=== PATIENT | female | born 1955 | race Caucasian/White ===

== ENCOUNTER 2016-12-03 07:57 | Outpatient (CLI) | payer MEDICARE ==
[~2016-12-03] VITALS: Ht 162.6 cm; Wt 64.5 kg
--- NOTE | ~2016-12-03 | OP ---
PATIENT NAME: BRITNEY MCNEAL MEDICAL RECORD: [id number] :51 LOCATION:D.CAT ADMISSION DATE: SURGEON: BILLY BENAVIDES MD DATE OF OPERATION: PROCEDURES: 1. Left heart catheterization. 2. Selective coronary angiography. 3. Left ventriculogram. INDICATION: Chest pain compatible with angina. PROCEDURE IN DETAIL: After informed consent was obtained and after a detailed explanation of risks, benefits as well as alternative therapies, the patient elected to proceed with angiogram and heart catheterization. The right femoral area was prepped and draped in normal sterile fashion. The right femoral artery was cannulated via modified Seldinger technique with the placement of 5-Guinean sheath. All catheters exchanged through this sheath. FINDINGS: Left ventriculogram was performed in the standard 30-degree KENNEY view reveals good cardiac wall motion throughout all segments. Overall ejection fraction estimated at 60%. SELECTIVE CORONARY ANGIOGRAPHY: Left main, left anterior descending, left circumflex, and right coronary artery are all smooth-walled vessels with no angiographic evidence of coronary artery disease. OVERALL IMPRESSION: 1. No angiographic evidence of coronary artery disease. 2. Normal left heart pressures, normal left ventricular systolic function. Chest pain is noncardiac in etiology. No further cardiac workup needs to be ascertained. TRANSINT:[id number] Voice Confirmation ID: [id number] DOCUMENT ID: [id number] BILLY BENAVIDES MD CC: [id number] DICTATION DATE: 12/03/16 105 CHEMICAL MACHINE TENDER: 12/03/16 1058 DEP CLI 12/03/16 [facility] [address] [place] [address]
--- NOTE | ~2016-12-03 | HP ---
PATIENT: BRITNEY RUTLEDGE MEDICAL RECORD: [id number] ACCOUNT: [id number] LOCATION:MELIDA : 51 ADMISSION DATE: 12/03/16 HISTORY AND PHYSICAL EXAMINATION DIAGNOSES: 1. Angina. 2. Abnormal nuclear stress test. HISTORY OF PRESENT ILLNESS: Mrs. Rutledge presents with anginal symptomatology in an escalating fashion, nuclear stress test with significant perfusion defects in multivessel territory, now brought for cardiac catheterization. PHYSICAL EXAMINATION: GENERAL APPEARANCE: Well-nourished, well-developed, appears stated age. Level of distress, comfortable. PSYCHIATRIC: Mental status, alert, normal affect. Orientation, oriented to time, place and person. EYES: Lids and conjunctiva, noninjected. No discharge, no pallor. ENT: Lips, teeth, gums, normal dentition. Oropharynx, no cyanosis, no pallor. NECK: Carotid arteries, bilateral normal upstroke, no bruits, no thrills. JUGULAR VEINS: No jugular venous pressure or distention. CERVICAL LYMPH NODES: Nontender, nonenlarged. THYROID: Not enlarged. Nontender. No nodules. LUNGS: Respiratory effort, unlabored. CHEST: Normal curvature. No thoracic deformity. No chest wall tenderness. Percussion, resonant. Auscultation, clear. No wheezes, no rales, no rhonchi. CARDIOVASCULAR: Precordial exam, nondisplaced. No heaves or pericardial thrills. Rate and rhythm, regular. Heart sounds, normal S1, normal S2. No S3, no gallop, no rub. Systolic murmur, not heard. Diastolic murmur, not heard. EXTREMITIES: No cyanosis, no edema. Peripheral pulses, full and equal in all extremities, except as noted. No bruits appreciated. ABDOMEN: Soft, nondistended. Normal aorta. No bruit. Nontender. No masses. Liver, nontender, no hepatomegaly. Spleen, nontender, no splenomegaly. MUSCULOSKELETAL: No joint tenderness. No joint swelling. No erythema. NEUROLOGICAL: Normal gait, normal strength, normal tone. SKIN: Warm and dry. REVIEW OF SYSTEMS: The patient reports easy bruising but reports no swollen glands. The patient reports no fever, no night sweats, no significant weight gain, no significant weight loss. No significant exercise tolerance. The patient reports no dry eyes, no irritation, no vision change. Patient reports no difficulty hearing and no ear pain. Patient reports no frequent nose bleeds or nose and sinus problems. Patient reports on arm pain on exertion. No shortness of breath while lying down. No history of heart murmur. Patient reports no cough, no wheezing or coughing up blood. Patient reports no abdominal pain, no vomiting. Normal appetite. No diarrhea and not vomiting blood. No nausea and no constipation. Patient reports no incontinence. No difficulty urinating. No hematuria. No increased frequency. Patient reports no muscle aches. No weakness, no arthralgias, no back pain. No swelling of the extremities. Patient reports no abnormal mole, no jaundice, no rashes. Reports no loss of consciousness. No weakness and no numbness. No seizures, dizziness, or headaches. The patient reports no depression, no sleep disturbance, feeling safe in a relationship and no alcohol abuse. Patient reports on fatigue. Reports no runny nose or sinus pressure. No itching, no hives, and no frequent HISTORY AND PHYSICAL [id number] ELIZABET,BRITNEY HOLLIS sneezing. OVERALL IMPRESSION: Escalating chest pain with markedly abnormal nuclear stress test. She has high likelihood of recurrent hemodynamically significant coronary artery disease. We will proceed with coronary angiography. Further care depends upon findings of the angiography. TRANSINT:[id number] Voice Confirmation ID: [id number] DOCUMENT ID: [id number] BILLY BENAVIDES MD CC: [id number] DICTATION DATE: 12/03/16851 CLIENT RELATIONSHIP MANAGER: 12/03/16 09 REG [facility] [address] [place] [address]
--- NOTE | ~2016-12-03 | HEMODYNAMI ---
PATIENT:BRITNEY MCNEAL MEDICAL RECORD: [id number] : 51 LOCATION:DMATEUS ADMISSION DATE: 12/03/16 Generatedon:12/03/201610:54 Patient name: BRITNEY MCNEAL Patient #: [id number] SSN: : 1955 Date of study: 12/03/2016 Page: Of Hemodynamic Procedure Report Patient Data Patient Demographics Procedure consent was obtained First Name: BRITNEY Gender: Female Last Name: ELIZABET : 1955 [facility] Initial: TELMA Age: 61 year(s) Patient #: [id number] Race: Unknown Additional ID: [id number] Contact details Address: [place] [address] State: [place] City: [place] Zip code: [address] Past Medical History Allergies Allergen Reaction Date Comments Reported Other allergy 12/03/2016 Codeine, Penicillins Admission Admission Data Admission Date: 12/03/2016 Admission Time: 7:57 Admit Source: Other Lab Results Lab Result Date: 12/03/2016 Lab Result Time: 9:10 Biochemistry Name Units Result Min Max BUN mg/dl 29 --(----)-* 7 18 Creatinine mg/dl 0.9 --(-*--)-- 0.6 1.3 CBC Name Units Result Min Max Hematocrit % 33.8 *-(----)-- 42 54 Hemoglobin g/dl 10.7 *-(----)-- 13.5 17.5 Procedure Procedure Types Cath Procedure Diagnostic Procedure LHC LHC w/Coronaries Miscellaneous Procedures Moderate Sedation up to 15 minutes Procedure Description Procedure Date Procedure Date: 12/03/2016 Procedure Start Time: 10:41 Procedure End Time: 10:50 Procedure Staff Name Function Timi Ortiz MD Performing Physician Jose Cifuentes RT Scrub Marycarmen Yoon RN Nurse Mohan Hicks RT Monitor Procedure Data Cath Procedure Fluoroscopy Diagnostic fluoroscopy Total fluoroscopy Time: 0.9 time: 0.9 min min Diagnostic fluoroscopy Total fluoroscopy dose: dose: 107.42 mGy 107.42 mGy Contrast Material Contrast Material Type Amount (ml) Isovue 300 55 Entry Location Entry Primary Successful Side Size Upsize Upsize Entry Closure Succes sful Closure Location (Fr) 1 (Fr) 2 (Fr) Remarks Device Remarks Femoral Right 5 Fr Exoseal artery Estimated blood loss: 5 ml Diagnostic catheters Device Type Used For End Catheter Placement Cordis 5Fr Pigtail Procedure Catheter (MP) Cordis 5Fr JL 4.0 Procedure Catheter (MP) Cordis 5Fr 3DRC Catheter Procedure (MP) Procedure Complications No complications Procedure Medications Medication Administration Route Dosage 0.9% NaCl I.V. 100 ml/hr Lidocaine 2% added to field 20 Heparin Flush Bag added to field 2 bags (1000units/500ml NS) Oxygen NC 3 l/min Versed I.V. 0.5 mg Fentanyl I.V. 25 mcg Versed I.V. 0.5 mg Fentanyl I.V. 25 mcg Hemodynamics Rest HGB: 10.7 (g/dl) Heart Rate: 56 (bpm) Snapshots Pre Cath Intra NCS Post Cath Vital Signs Time Heart Resp SPO2 NIBP (mmHg) Rhythm Pain Sedation Rate (ipm) (%) Status Level (bpm) 10:16:42 54 15 100 145/85(122) NSR 0 (11) 10(A) , No pain 10:20:56 55 15 100 143/77(106) NSR 0 (11) 10(A) , No pain 10:26:22 55 17 100 139/78(117) NSR 0 (11) 10(A) , No pain 10:30:36 55 16 100 121/72(86) NSR 0 (11) 10(A) , No pain 10:34:52 56 15 100 122/66(81) NSR 0 (11) 10(A) , No pain 10:39:08 58 16 100 107/62(76) NSR 0 (11) 9(A) , No pain 10:43:18 56 15 100 102/66(78) NSR 0 (11) 9(A) , No pain 10:47:28 60 18 100 103/59(79) NSR 0 (11) 9(A) , No pain 10:52:02 66 17 99 105/66(93) NSR 0 (11) 10(A) , No pain Medications Time Medication Route Dose Verified Delivered Reason Notes Effe ctiveness by by 10:15:43 0.9% NaCl I.V. 100 Marycarmen Marycarmen used for ml/hr Car Car e business manager RN 10:15:51 Lidocaine 2% added 20ml Marycarmen Marycarmen used for to vial Car Car procedure field RN RN 10:16:00 Heparin Flush added 2 Marycarmen Marycarmen used for Bag to bags Car Car procedure (1000units/500ml field RN RN NS) 10:16:09 Oxygen NC 3 Marycarmen Marycarmen used for l/min Car Car e business manager RN 10:38:03 Versed I.V. 0.5 Marycarmen Marycarmen for mg Car Car sedation RN RN 10:38:12 Fentanyl I.V. 25 Marycarmen Marycarmen for mcg Car Car sedation RN RN 10:42:01 Fentanyl I.V. 25 Marycarmen Marycarmen for mcg Car Car sedation RN RN 10:42:45 Versed I.V. 0.5 Marycarmen Marycarmen for mg Car Car sedation RN kettle chipper Log Time Note 10:00:43 Jose Cifuentes RT(R) (CV) sent for patient. Start room use. 10:05:08 Informed consent obtained and on chart 10:05:18 Admit Source: Other 10:05:41 Diagnostic Cath status Elective 10:05:49 Time tracking: Regular hours 10:05:52 Plan of Care:Hemodynamics will remain stable., Cardiac rhythm will remain stable., Comfort level will be maintained., Respiratory function will remain adequate., Patient/ family verbilizes understanding of procedure., Procedure tolerated without complication., Recovers from procedure without complications.. 10:06:00 Patient received from Pre/Post Procedure Room to CCL 3 Alert and oriented. Tansferred to table in Supine position. 10:06:01 Warm blankets applied, and talha hugger turned on for patient comfort. 10:06:01 Correct patient and procedure confirmed by team. 10:06:02 ECG and BP/O2 sat monitors applied to patient. 10:06:19 H&P Date Dictated: 12/03/2016 New H&P dictated by physician.. 10:06:20 Pre-procedure instructions explained to patient. 10:06:20 Pre-op teaching completed and patient verbalized understanding. 10:06:21 Family in patients room. 10:06:22 Patient NPO since Midnight. 10:06:43 Patient allergic to Other allergyCodeine, Penicillins 10:06:45 Is the patient allergic to Iodine/contrast media? No. 10:06:49 Previous problem with sedation/anesthesia? No ? 10:06:51 Snore? Yes 10:06:54 Sleep apnea? No 10:06:55 Deviated septum? No 10:06:56 Opens mouth fully? Yes 10:06:57 Sticks out tongue? Yes 10:07:06 Airway obstruction? No ? 10:07:07 Patient diabetic? No. 10:07:10 Dentures? Yes in tight 10:07:49 Is patient on blood thinner?No 10:14:55 Vital chart was started 10:15:43 0.9% NaCl 100 ml/hr I.V. was administered by Marycarmen Yoon RN; used for procedure; 10:15:51 Lidocaine 2% 20ml vial added to field was administered by Marycarmen Yoon RN; used for procedure; 10:16:00 Heparin Flush Bag (1000units/500ml NS) 2 bags added to field was administered by Marycarmen Yoon RN; used for procedure; 10:16:09 Oxygen 3 l/min NC was administered by Marycarmen Yoon RN; used for procedure; 10:24:15 Pre procedure: right dorsailis pedis pulse Doppler 10:24:17 Patient pain scale 0/10 ?. 10:24:22 IV patent on arrival in right antecubital with 0.9% NaCl at [facility]. 10::46 Lab Result : Creatinine 0.9 mg/dl 10::46 Lab Result : BUN 29 mg/dl 10::46 Lab Result : Hemoglobin 10.7 g/dl 10::46 Lab Result : Hematocrit 33.8 % 10::48 Lab results completed and on chart. 10::54 Baseline sample Acquired. 10::58 Rhythm: sinus rhythm 10::59 Full Disclosure recording started 10:27:09 Right groin area was prepped with chlora-prep and draped in sterile fashion 10:27:10 Alarms reviewed by RElle NElle 10:27:10 Sharps counted by scrub and verified by R.N. 10:27:13 Use device set Femoral Dx 10:27:14 Tegaderm 4 x 4 opened to sterile field. 10:27:14 Acist Manifold opened to sterile field. 10:27:15 Acist Hand Control opened to sterile field. 10:27:16 Acist Syringe opened to sterile field. 10:27:16 Bag Decanter opened to sterile field. 10:27:17 Medline Cath Pack opened to sterile field. 10:27:17 Terumo 5Fr Mendota Sheath opened to sterile field. 10:27:17 St Jair 260cm J .035 wire opened to sterile field. 10:27:18 Diagnostic Infinity 5Fr Multipack catheter opened to sterile field. 10:31:26 Zero performed for pressure channel P1 10:37:35 Cook 18G 7cm Percutaneous Entry needle opened to sterile field. 10:37:40 Physician arrived 10:37:40 --------ALL STOP TIME OUT------ 10:37:40 Final Timeout: patient, procedure, and site verified with staff and physician. All members of the team are in agreement. 10:37:42 Right groin site verified by team. 10:37:45 Physical assessment completed. ASA score P 2 - A patient with mild systemic disease as per Timi Ortiz MD. 10:37:49 Sedation plan: IV Moderate Sedation Versed, Fentanyl 10:38:03 Versed 0.5 mg I.V. was administered by Marycarmen Yoon RN; for sedation; 10:38:12 Fentanyl 25 mcg I.V. was administered by Marycarmen Yoon RN; for sedation; 10:41:16 Procedure started. 10:41:18 Local anesthetic to right femoral artery with Lidocaine 2% by Timi Ortiz MD.INITIAL ACCESS ONLY 10:42:01 Fentanyl 25 mcg I.V. was administered by Marycarmen Yoon RN; for sedation; 10:42:02 A 5 Fr sheath was inserted into the Right Femoral artery 10:42:32 A Cordis 5Fr Pigtail Catheter (MP) was advanced over the wire and used for Procedure. 10:42:37 LV gram done using KENNEY 10:42:45 Versed 0.5 mg I.V. was administered by Marycarmen Yoon RN; for sedation; 10:42:47 Injector settings: Ml/sec: 10, Volume: 20, 10:43:19 EF : 60 % 10:43:23 Catheter exchanged over wire. 10:43:28 A Cordis 5Fr JL 4.0 Catheter (MP) was advanced over the wire and used for Procedure. 10:43:46 LCA angiography performed. 10:44:41 Catheter exchanged over wire. 10:44:45 A Cordis 5Fr 3DRC Catheter (MP) was advanced over the wire and used for Procedure. 10:45:21 RCA angiography performed. 10:45:44 Catheter removed. 10:45:49 Cordis 5Fr Exoseal opened to sterile field. 10:45:58 Sheath removed intact; hemostasis achieved with Exoseal to the Right Femoral artery. 10:46:00 Procedure ended.(Physican Out) 10:46:24 Fluoroscopy time 00.90 minutes. 10:46:34 Fluoroscopy dose: 107.42 mGy 10:46:34 Flurop Dose total: 107.42 10:46:39 Contrast amount:Isovue 300 55ml. 10:46:41 Sharps counted by scrub and verified by R.N. 10:49:30 Insertion/operative site no bleeding no hematoma. 10:49:33 Post-op/insertion site Right Femoral artery dressed using a 4 x 4 and Tegaderm. 10:49:36 Post right femoral artery:stable, soft, clean and dry 10:49:38 Post Procedure Pulses reassessed and unchanged 10:49:40 Post-procedure physical assessment completed. ASA score P 2 - A patient with mild systemic disease as per Timi Ortiz MD. 10:49:42 Post procedure rhythm: unchanged. 10:49:44 Estimated blood loss: 5 ml 10:49:45 Post procedure instruction explained to patient.Patient verbalizes understanding. 10:49:46 Patient needs reinforcement of post procedure teaching. 10:49:56 Procedure type changed to Cath procedure, Diagnostic procedure, LHC, LHC w/Coronaries, Miscellaneous Procedures, Moderate Sedation up to 15 minutes 10:50:10 Procedure and supply charges have been captured, reviewed, submitted and are correct. 10:50:13 Procedure Complication : No complications 10:50:15 Vital chart was stopped 10:50:15 See physician's report for complete and final results. 10:50:17 Report given to Pre/Post Procedure Room. 10:50:19 Patient transfered to Pre/Post Procedure Room with Stretcher. 10:50:20 Procedure ended. 10:50:20 Full Disclosure recording stopped 10:50:24 End room use (Document Last) Device Usage Item Name Manufacture Quantity Catalog Hospital Part Current Minimal Lot# / Number Charge Number Stock Stock Serial# Code Tegaderm 4 x 3M 1 [id number] [id number] 488237 5 4 Acist Acist 1 48759 124736 448287 560051 5 Manifold Medical Systems Inc Acist Hand Acist 1 49246 274538 036903 802180 5 Control Medical Systems Inc Acist Acist 1 91579 990620 796022 669106 20 Syringe Medical Systems Inc Bag Decanter Microtek 1 2002S 629683 74940 925170 5 Medical Inc. Medline Cath Cardinal 1 [id number] 875686 26457 638484 5 Pack Health Terumo 5Fr Terumo 1 [id number] 771191 392375 642078 [address] St Jair 1 [id number] 908584 706771 628639 30 260cm J .035 wire Diagnostic Cardinal 1 [id number] 208450 24002 682592 30 Infinity 5Fr Health Multipack catheter Cook 18G 7cm Cook Medical 1 [id number] 254788 49434 083978 5 Percutaneous Entry needle Cordis 5Fr Cardinal 1 [id number] 5 Pigtail Health Catheter (MP) Cordis 5Fr Cardinal 1 068406 5 JL 4.0 Health Catheter (MP) Cordis 5Fr Cardinal 1 130911 5 3DRC Health Catheter (MP) Cordis 5Fr Cardinal 1 EX500 882379 239340 349475 10 ParentPlus Signature Audit [place] Stage Time Signature Unsigned Intra-Procedure 12/03/2016 Mohan Hicks 10:54:24 AM RT(R) Signatures Monitor : Mohan Hicks RT Signature : Date : Time : [facility] [address] [place] [address]
[~2016-12-03 07:57] MED LIST: AMBIEN10 MG PO; ASPIRIN325 MG PO; BAYER CHEWABLE81 MG PO; CARAFATE1 G PO; CENTRUM SILVER1 TA2 PO; DEPAKOTE500 MG PO; EVISTA60 MG PO; FERRETTS I40 MG/15 M IV; FERREX 150 FO1 UDCAP PO; HEMOCYTE PLUS1 CAP PO; K-DUR20 MEQ PO; KEPPRA XR750 MG PO; KEPPRA500 MG PO; KLONOPIN1 MG PO; LASIX20 MG PO; LEVAQUIN500 MG PO; LISINOPRIL5 MG PO; MOBIC7.5 MG PO; MOTRIN800 MG PO; POLY IRON PN TA1 TAB PO; POTASSIUM99 M1; PRILOSEC20 MG PO; REQUIP XL2 MG PO; TEGRETOL 200 M200 MG PO; TOPAMAX100 MG PO; TOPROL XL25 MG PO; VITAMIN B-1000 MCG/M IM; VITAMIN B-121000 MC3; ZANAFLEX2 MG PO; ZANAFLEX4 MG PO; ZANTAC300 MG PO; ZOLOFT100 MG PO
[2016-12-03] MEDS ORDERED: GABAPENTIN100 MG PO (08:21)
[2016-12-03] MEDS ORDERED: BUTALBITAL-ASP-1 CAP PO (08:22)
[2016-12-03] MEDS ORDERED: ROPINIROLE HCL2 MG PO (08:22)
[2016-12-03] MEDS ORDERED: LIPITOR40 MG PO (08:22)
[2016-12-03] MEDS ORDERED: METOLAZONE2.5 MG PO (08:22)
[2016-12-03] MEDS ORDERED: ZESTRIL40 MG PO ×2 (08:23→09:03)
[2016-12-03 08:52] VITALS: BP 115/68; Ht 162.6 cm; Wt 64.5 kg
[2016-12-03] MEDS ORDERED: TOPAMAX200 MG PO (09:03)
[2016-12-03] MEDS ORDERED: MOBIC7.5 MG PO (09:04)
[2016-12-03] MEDS ORDERED: PRILOSEC10 M1 PO (09:04)
[2016-12-03 09:24] LABS: BASOPHILS 0.4 % (0-2); EOSINOPHILS 1.6 % (0-7); HEMATOCRIT 33.8 % (36.0-48.0); HEMOGLOBIN 10.7 g/dL (12-16); LYMPHOCYTES 31.2 % (15-50); MCH 31.8 pg (26.0-34.0); MCHC 31.7 g/dL (31.0-37.0); MCV 100.3 fL (80.0-100.0); MEAN PLATELET VOLUME 10.1 fL (7.4-10.4); MONOCYTES 10.5 % (2-11); NEUTROPHILS 56.3 % (40-80); PLATELET COUNT 112 10x3/uL (130-400); RBC 3.37 10x6/uL (4.00-5.40); RDW 14.8 % (11.5-14.5); WBC 2.5 10x3/uL (4.8-10.8)
[2016-12-03 09:44] LABS: ANION GAP 13.9 mmol/L (8-16); CALCIUM 8.3 mg/dL (8.5-10.1); CARBON DIOXIDE 22.9 mmol/L (21.0-32.0); CREATININE - SERUM 0.9 mg/dL (0.6-1.3); POTASSIUM - SERUM 4.8 mmol/L (3.5-5.1)
--- NOTE | 2016-12-03 13:09 | NUR ---
1250 IV D/C'D WITH CATH INTACT. RECHECKED B/P AFTER AROUSING PATIENT. UP TO WHEELCHAIR TO BATHROOM TO VOID. BACK TO BEDSIDE TO DRESS WITH ASSIST FROM FAMILY.
== END 2016-12-03 13:42 | disposition home or self-care (01) ==
LOC: D.CATH 07:57
PROVIDERS: Internal Medicine Interventional Cardiology
DX: I20.9 Angina pectoris, unspecified (principal); R94.30 Abnormal result of cardiovascular function study, unspecified; R06.02 Shortness of breath; I07.1 Rheumatic tricuspid insufficiency; I10 Essential (primary) hypertension; I34.0 Nonrheumatic mitral (valve) insufficiency; R60.9 Edema, unspecified; Z01.812 Encounter for preprocedural laboratory examination

== ENCOUNTER 2017-01-05 16:46 | Inpatient (IN) | payer MEDICARE ==
[~2017-01-05 16:46] MED LIST changes: +BUTALBITAL-ASP-1 CAP PO; +GABAPENTIN100 MG PO; +LIPITOR40 MG PO; +METOLAZONE2.5 MG PO; +PRILOSEC10 M1 PO; +ROPINIROLE HCL2 MG PO; +TOPAMAX200 MG PO; +ZESTRIL40 MG PO
[2017-01-05 19:47] LABS: ALBUMIN 2.9 g/dL (3.4-5.0); ALKALINE PHOSPHATASE 33 U/L (46-116); ALT (SGPT) 20 U/L (10-68); BILIRUBIN - TOTAL 0.27 mg/dL (0.2-1.3); CALC OSMOLALITY 281 mosm/kg (275-300); CALCIUM 7.5 mg/dL (8.5-10.1); CARBON DIOXIDE 19.7 mmol/L (21.0-32.0); CHLORIDE - SERUM 108 mmol/L (98-107); GLUCOSE 82 mg/dL (74-106); POTASSIUM - SERUM 3.9 mmol/L (3.5-5.1); PROTEIN - SERUM 5.6 g/dL (6.4-8.2); SODIUM 139 mmol/L (136-145); UREA NITROGEN 27 mg/dL (7-18); eGFR NON AFRICAN AMERICAN 59 mL/min (90-120)
[2017-01-05 19:48] LABS: PRO BNP 1836 pg/mL (0-125)
[2017-01-05 19:49] LABS: TROPONIN-I < 0.017 ng/mL (0.000-0.060)
[2017-01-05 20:00] LABS: BASOPHILS 0.2 % (0-2); EOSINOPHILS 0.8 % (0-7); HEMATOCRIT 35.5 % (36.0-48.0); HEMOGLOBIN 10.9 g/dL (12-16); IMMATURE GRANULOCYTES 0.1 % (0-5); LYMPHOCYTES 17.2 % (15-50); MCH 31.7 pg (26.0-34.0); MCHC 30.7 g/dL (31.0-37.0); MCV 103.2 fL (80.0-100.0); MEAN PLATELET VOLUME 10.8 fL (7.4-10.4); MONOCYTES 12.4 % (2-11); NEUTROPHILS 69.3 % (40-80); PLATELET COUNT 90 10x3/uL (130-400); RBC 3.44 10x6/uL (4.00-5.40); RDW 14.4 % (11.5-14.5); WBC 9.9 10x3/uL (4.8-10.8)
[2017-01-05 20:35] LABS: PLATELET ESTIMATE DECREASED
[2017-01-05 21:19] LABS: CARBAMAZEPINE (TEGRETOL) 6.8 ug/mL (4.0-12.0); VALPROIC ACID (DEPAKOTE) 63.7 ug/mL (50.0-100.0)
--- NOTE | 2017-01-05 22:55 | NUR ---
RECEIVED FROM ER VIA STRETCHER. TRANSFERED HERSELF TO BED WITHOUT ASSISTANCE. ALERT/ORIENTED X4. EJ IV IN R NECK WITH LEVAQUIN INFUSING. DENIES PAIN. FAMILY PRESENT WITH HER. ORIENTED TO ROOM AND CALL LIGHT.
--- NOTE | 2017-01-05 23:30 | NUR ---
REQUESTED HER HS MEDICATIONS. CALLED ROCHELLE BILLINGS APN AND RECEIVED ORDERS TO GIVE REQUESTED MEDICATIONS.
--- NOTE | 2017-01-05 23:45 | NUR ---
CALLED DAVID BLEVINS" TO PULL MEDICATIONS.
[2017-01-06] VITALS (7 sets, daily range): BP systolic 69–80; BP diastolic 36–49; BMI 24.0
--- NOTE | 2017-01-06 01:25 | NUR ---
DAVID GLOVER RN" PULLED MEDICATIONS. ADMINISTERED TO PATIENT.
[2017-01-06] MEDS ORDERED: FUROSEMIDE20 MG PO (02:29)
[2017-01-06] MEDS ORDERED: FOLIC ACID1 MG PO (02:39)
[2017-01-06] MEDS ORDERED: TEGRETOL200 MG PO (02:41)
[2017-01-06] MEDS ORDERED: LISINOPRIL PO (02:46)
--- NOTE | 2017-01-06 07:30 | NUR ---
RECEIVED PT IN BED AAOX4 RESP UNLABORED DENIES ANY NEEDS OR DISCOMFORT AT THIS TIME
--- NOTE | 2017-01-06 13:30 | NUR ---
SCDs PUT ON AND PATENT PT TOLERATING WELL
--- NOTE | 2017-01-06 22:27 | NUR ---
1899-REPORT RECIEVED. 1909-SHIFT ASSESSMENT COMPLETE, PLEASE SEE FLOW SHEETS FOR DETAILS. DENIES PAIN/NEEDS ATT. DAUGHTER IN ROOM. ANSWERED ALL QUESTIONS TO BEST OF ABILITY. BED LOW AND LOCKED, CALL LIGHT IN REACH. WILL CPOC. 2214-CHECKED IN ON PATIENT. RECIEVING IV ANTIBIOTICS ATT, TOLERATING WELL. DENIES PAIN/NEEDS ATT. WILL CPOC.
[2017-01-07 00:55] VITALS: BP 77/40
[2017-01-07 04:02] VITALS: BP 76/39
--- NOTE | 2017-01-07 04:13 | NUR ---
0100-RESTING, DENIES PAIN/NEEDS ATT. BED LOW AND LOCKED, CALL LIGHT IN REACH. DAUGHER AT BEDSIDE. 0300-SLEEPING, NO S&S OF DISTRESS NOTED. BED LOW AND LOCKED, CALL LIGHT IN REACH. WILL CPOC.
[2017-01-07 05:34] LABS: BASOPHILS 0.3 % (0-2); EOSINOPHILS 1.6 % (0-7); IMMATURE GRANULOCYTES 0.3 % (0-5); LYMPHOCYTES 24.8 % (15-50); MCH 32.1 pg (26.0-34.0); MCHC 32.2 g/dL (31.0-37.0); MEAN PLATELET VOLUME 10.2 fL (7.4-10.4); MONOCYTES 11.9 % (2-11); NEUTROPHILS 61.1 % (40-80); RDW 14.5 % (11.5-14.5)
[2017-01-07 05:45] LABS: HEMATOCRIT 26.7 % (36.0-48.0); HEMOGLOBIN 8.6 g/dL (12-16); MCV 99.6 fL (80.0-100.0); PLATELET COUNT 113 10x3/uL (130-400); RBC 2.68 10x6/uL (4.00-5.40); WBC 3.1 10x3/uL (4.8-10.8)
[2017-01-07 06:12] LABS: ANION GAP 12.7 mmol/L (8-16); CALCIUM 7.3 mg/dL (8.5-10.1); CARBON DIOXIDE 22.7 mmol/L (21.0-32.0); CREATININE - SERUM 0.9 mg/dL (0.6-1.3); POTASSIUM - SERUM 4.4 mmol/L (3.5-5.1)
--- NOTE | 2017-01-07 07:30 | NUR ---
RECEIVED PT IN BED AAOX4 RESP UNLABORED SKIN W/D COLOR WNL DEINIES ANY NEEDS OR DISCOMFORT AT THIS TIME NAD NOTED
[2017-01-07 07:45] VITALS: BP 70/34
[2017-01-07 11:37] VITALS: BP 87/44
[2017-01-07 13:00] LABS: BASOPHILS 0.3 % (0-2); EOSINOPHILS 0.8 % (0-7); HEMATOCRIT 29.8 % (36.0-48.0); HEMOGLOBIN 9.4 g/dL (12-16); LYMPHOCYTES 17.8 % (15-50); MCHC 31.5 g/dL (31.0-37.0); MCV 101.4 fL (80.0-100.0); MEAN PLATELET VOLUME 10.8 fL (7.4-10.4); MONOCYTES 8.1 % (2-11); PLATELET COUNT 104 10x3/uL (130-400); RBC 2.94 10x6/uL (4.00-5.40); RDW 14.5 % (11.5-14.5); WBC 3.6 10x3/uL (4.8-10.8)
[2017-01-07 16:08] VITALS: BP 78/41
--- NOTE | 2017-01-07 19:05 | NUR ---
ROUNDING NOTE: PT SLEEPING AT CHANGE OF SHIFT WITH SPOUSE SITTING AT BEDSIDE. RIGHT NECK EJ SALINE LOC. PT'S SPOUSE DENIES ANY NEEDS. WILL CONT TO MONITOR.
[2017-01-07 20:32] VITALS: BP 78/44
[2017-01-08 00:05] VITALS: BP 85/53
[2017-01-08 05:21] VITALS: BP 96/61
--- NOTE | 2017-01-08 05:53 | NUR ---
UNABLE TO COLLECT STOOL SAMPLE FOR OCCULT BLOOD BECAUSE PT HAS NOT HAD A BM ON MY SHIFT.
--- NOTE | 2017-01-08 07:20 | NUR ---
AM ROUNDING DONE WITH PATIENT WATCHING TV, MALE MEMBER PILAR IN CHAIR. WEARS GLASSES. ON ROOM AIR. ON HEART MONITOR SHOWING SR, HR 69. RIGHT IJ SEEN WITH SALINE LOCK. BILATERAL SCD'S ON AND IN USE. WILL MONITOR.
[2017-01-08 07:45] VITALS: BP 84/51
[2017-01-08 11:50] VITALS: BP 96/57
[2017-01-08] MEDS ORDERED: LEVAQUIN750 MG PO (15:05)
--- NOTE | 2017-01-08 15:22 | NUR ---
STOOL SAMPLE TAKEN TO LAB ORDERED.
[2017-01-08 15:40] VITALS: BP 87/50
--- NOTE | 2017-01-08 17:21 | NUR ---
FOR DISCHARGE TODAY. PATIENT IS EATING SUPPER AT THIS TIME AND WILL NEED TO REMOVE THE RIGHT IJ. FAMILY MEMBER IS PRESENT AND MADE AWARE OF THIS.
--- NOTE | 2017-01-08 17:46 | NUR ---
RIGHT IJ REMOVED WITH CATH TIP INTACT. TO LAY FLAT X 15 MIN THEN I WILL GO OVER THE PAPER WORK WITH HER AND FAMILY.
--- NOTE | 2017-01-08 17:55 | NUR ---
HEART MONITOR TURNED IN.
--- NOTE | 2017-01-08 18:06 | NUR ---
VERBAL AND WRITTEN DISCHARGE INSTRUCTIONS TO PATIENT AND FAMILY MEMBERS. WILL DISCHARGE VIA WHEELCHAIR PAST PATIENT GETTING DRESSED.
--- NOTE | 2017-01-23 16:56 | EC ---
PATIENT:BRITNEY MCNEAL DATE OF SERVICE: 01/05/17 SEX: F MEDICAL RECORD: [id number] DATE OF : [birth year] LOCATION:D.M2 D.213 AGE OF PATIENT: 61 ADMISSION DATE: 01/05/17 REFERRING PHYSICIAN: INTERPRETING PHYSICIAN: BILLY ORTIZ MD ECHOCARDIOGRAM REPORT ECHO CHARGES 4 ECHO COMPLETE CLINICAL DIAGNOSIS: HYPOTENSION ECHOCARDIOGRAPHIC MEASUREMENTS (adult normal given) AC root (d.<3.7cm) 3.1 cm LV Septum d (<1.2 cm> 0.90 cm Valve Excursion 1.8 cm LV Septum (systole) 1.2 cm Left Atria (s.<4.0cm> 4.5 cm LVPW d(<1.2cm) 1.3 cm RV (d.<2.3cm) 4.1 cm LVPW (sytole) 1.4 cm LV diastole(<5.6CM) 4.6 cm MV E-F(>70mm/sec) cm LV systole 2.9 cm LVOT Diameter 1.6 cm MV exc.(>10mm) 1.9 cm Est.ejection fraction (50-75%) % Pericardial Effusion N DOPPLER: LVIT cm/sec A 107 cm/sec E 193 cm/sec LA cm/sec RVSP 47 mmHg LVOT 128 cm/sec AOP1/2T m/s Asc. Ao 185 cm/sec RVOT 89 cm/sec RA cm/sec PA 143 cm/sec AV Gradient Peak 13.74mmHg AV Mean 8.03 mmHg AV Area 1.5 cm MV Gradient Peak 22.06mmHg MV Mean 6.41 mmHg MV Area cm COMMENTS: Accident Investigator: Yanely [employer] Status Controller: 1 Dr. Ortiz TAPE# PACS DATE OF SERVICE: 01/06/2017 FINDINGS: 1. Left ventricle chamber size is within normal limits. Left ventricular systolic function is normal. Overall ejection fraction estimated at 60%. 2. Left atrium, right atrium, and right ventricle chamber sizes are enlarged. Left atrium measures 4.5 cm. 3. 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 The remaining valvular structures have normal structure and motion. ECHOCARDIOGRAM REPORT [id number] BRITNEY MCNEAL 4. Doppler interrogation elsewise reveals mild mitral regurgitation, ngce-rd-xesodnub tricuspid regurgitation. No other valvular insufficiency or stenosis. Pulmonary systolic pressure is mildly elevated, estimated 47 mmHg. 5. No evidence of pericardial effusion or left ventricular thrombus. TRANSINT:[id number] Voice Confirmation ID: [id number] DOCUMENT ID: [id number] BILLY ORTIZ MD at 1656 CC: [id number] DICTATION DATE: 01/07/17 1023 PULL OUT OPERATOR: 01/07/17 1208 DIS IN 01/08/17 [place] [id number] [place] [id number]
== END 2017-01-08 18:17 | disposition home or self-care (01) | DRG 314 ==
LOC: D.ER 16:46 → D.M2 21:29
PROVIDERS: Emergency Medicine; Physician Assistant; ADMIT Family Medicine
DX: I95.9 Hypotension, unspecified (principal); J18.9 Pneumonia, unspecified organism; I50.33 Acute on chronic diastolic (congestive) heart failure; Z86.73 Personal history of transient ischemic attack (TIA), and cerebral infarction without residual deficits; I10 Essential (primary) hypertension; I73.9 Peripheral vascular disease, unspecified; E03.9 Hypothyroidism, unspecified; I25.10 Atherosclerotic heart disease of native coronary artery without angina pectoris; G40.909 Epilepsy, unspecified, not intractable, without status epilepticus; Z95.5 Presence of coronary angioplasty implant and graft; Z95.1 Presence of aortocoronary bypass graft; Z87.891 Personal history of nicotine dependence; D50.9 Iron deficiency anemia, unspecified; D72.819 Decreased white blood cell count, unspecified; I11.0 Hypertensive heart disease with heart failure

== ENCOUNTER → 2017-02-04 15:51 | Outpatient (CLI) | payer MEDICARE ==
[2017-01-06 13:26] VITALS: BMI 24.0
[~2017-02-04 15:51] MED LIST changes: +FOLIC ACID1 MG PO; +FUROSEMIDE20 MG PO; +LEVAQUIN750 MG PO; +LISINOPRIL PO; +TEGRETOL200 MG PO
[2017-02-04 17:33] LABS: APPEARANCE CLEAR (CLEAR); BILIRUBIN NEGATIVE (NEGATIVE); COLOR YELLOW (YELLOW); GLUCOSE NEGATIVE (NEGATIVE); KETONE NEGATIVE (NEGATIVE); NITRITE NEGATIVE (NEGATIVE); PROTEIN NEGATIVE (NEGATIVE); UROBILINOGEN NORMAL (NORMAL)
[2017-02-04 17:42] LABS: UDS - AMPHET NEGATIVE QUAL (NEGATIVE); UDS - BARB POSITIVE QUAL (NEGATIVE); UDS - BENZO NEGATIVE QUAL (NEGATIVE); UDS - COCAINE NEGATIVE QUAL (NEGATIVE); UDS - OPIATE NEGATIVE QUAL (NEGATIVE); UDS - PCP NEGATIVE QUAL (NEGATIVE); UDS - THC NEGATIVE QUAL (NEGATIVE)
[2017-02-04 18:46] LABS: HEMATOCRIT 35.3 % (36.0-48.0); HEMOGLOBIN 11.6 g/dL (12-16); MCH 32.6 pg (26.0-34.0); MCHC 32.9 g/dL (31.0-37.0); MCV 99.2 fL (80.0-100.0); MEAN PLATELET VOLUME 10.1 fL (7.4-10.4); PLATELET COUNT 118 10x3/uL (130-400); RBC 3.56 10x6/uL (4.00-5.40); RDW 13.2 % (11.5-14.5); WBC 2.4 10x3/uL (4.8-10.8)
[2017-02-04 19:16] LABS: EOSINOPHILS 4 % (0-7); LYMPHOCYTES 46 % (15-50); NEUTROPHILS 50 % (40-80); PLATELET ESTIMATE DECREASED
[2017-02-04 19:24] LABS: ALBUMIN 3.3 g/dL (3.4-5.0); ANION GAP 14.2 mmol/L (8-16); BILIRUBIN - TOTAL 0.21 mg/dL (0.2-1.3); CARBAMAZEPINE (TEGRETOL) 6.6 ug/mL (4.0-12.0); CARBON DIOXIDE 25.7 mmol/L (21.0-32.0); CHOL - HDL RATIO 1.4 ratio (2.3-4.1); CREATININE - SERUM 0.9 mg/dL (0.6-1.3); LDL-HDL RATIO 0.3 ratio (1.5-3.5); MAGNESIUM - SERUM 2.1 mg/dL (1.8-2.4); PHOSPHOROUS 4.7 mg/dL (2.5-4.9); POTASSIUM - SERUM 3.9 mmol/L (3.5-5.1); PROTEIN - SERUM 6.3 g/dL (6.4-8.2); VALPROIC ACID (DEPAKOTE) 54.2 ug/mL (50.0-100.0)
[2017-02-06 08:20] LABS: FOLATE (FOLIC ACID) - SERUM >20.0 ng/mL (>3.0); VITAMIN D 25 HYDROXY 57.7 ng/mL (30.0-100.0)
[2017-02-09 13:12] LABS: TOPIRAMATE (TOPAMAX) 8.6 ug/mL (2.0-25.0)
== END | disposition home or self-care (01) ==
LOC: D.LAB 15:51
PROVIDERS: Family Medicine
DX: G40.101 Localization-related (focal) (partial) symptomatic epilepsy and epileptic syndromes with simple partial seizures, not intractable, with status epilepticus (principal); I10 Essential (primary) hypertension; Z98.84 Bariatric surgery status

== ENCOUNTER → 2017-07-17 06:36 | Outpatient (CLI) | payer MEDICARE ==
[2017-01-06 13:26] VITALS: BMI 24.0
== END | disposition home or self-care (01) ==
LOC: D.MAMMO 07-07 15:45
DX: Z12.31 Encounter for screening mammogram for malignant neoplasm of breast (principal)

== ENCOUNTER 2017-11-23 08:26 | Day surgery (SDC) | payer MEDICARE ==
[~2017-11-23] VITALS: Ht 162.6 cm; Wt 64.1 kg
--- NOTE | ~2017-11-23 | OP ---
PATIENT NAME: BRITNEY MCNEAL MEDICAL RECORD: [id number] :51 LOCATION:D.OPS ADMISSION DATE: SURGEON: LATRICE BECERRA DO DATE OF OPERATION: 11/23/2017 PROCEDURE: Colonoscopy with biopsies. INDICATIONS FOR PROCEDURE: History of colon polyps, abnormal weight loss, change in bowel pattern. SCOPE: Olympus video pediatric colonoscope. MEDICATIONS: Propofol 290 mg IV per anesthesia. ESTIMATED BLOOD LOSS: Minimal. COMPLICATIONS: None. FINDINGS: Informed consent was given. The patient was made comfortable with the above medication. After reaching an adequate level of sedation by slow IV push, the patient was placed on her left side. A digital rectal examination was performed and was normal. The endoscope was then advanced under direct visualization through the rectum to the terminal ileum. The endoscope was slowly withdrawn and mucosa was carefully examined. There were no polyps visualized on today's examination. There were no diverticula or other abnormalities. The mucosa appeared normal throughout the entire colon. Regarding the patient's symptoms including diarrhea and overall change in bowel patterns, stool was collected to submit for further studies and random biopsies were taken throughout the entire colon. Retroflexion was performed in the rectum with a normal appearing rectal wall. The endoscope was then withdrawn from the patient. The patient tolerated the procedure well and there were no complications. IMPRESSION: Normal colon and terminal ileum with random biopsies taken and stool collected for further studies. PLAN AND RECOMMENDATIONS: 1. Discharge home when recovery parameters are met. 2. Follow up biopsy specimen results. 3. Trial of dicyclomine and cholestyramine will be given. 4. Okay to continue Lomotil as needed. 5. Recall colonoscopy in 5 years based on history of colon polyps. TRANSINT:[id number] Voice Confirmation ID: [id number] DOCUMENT ID: [id number] LATRICE BECERRA DO at 0721 CC: [id number] DICTATION DATE: 11/23/17 1132 MEAT CUTTING BLOCK REPAIRER: 11/23/17 1300 [facility] 11/23/17 [place] [id number]
[2017-11-23 08:59] LABS: BASOPHILS 0.6 % (0-2); HEMATOCRIT 36.5 % (36.0-48.0); IMMATURE GRANULOCYTES 0.4 % (0-5); LYMPHOCYTES 24.9 % (15-50); MCH 31.2 pg (26.0-34.0); MCHC 32.9 g/dL (31.0-37.0); MCV 94.8 fL (80.0-100.0); MEAN PLATELET VOLUME 9.6 fL (7.4-10.4); MONOCYTES 14.2 % (2-11); NEUTROPHILS 52.9 % (40-80); RBC 3.85 10x6/uL (4.00-5.40); RDW 12.9 % (11.5-14.5); WBC 4.7 10x3/uL (4.8-10.8)
[2017-11-23 09:10] LABS: PLATELET COUNT 187 10x3/uL (130-400)
[2017-11-23 09:23] LABS: ANION GAP 15.2 mmol/L (8-16); BILIRUBIN - TOTAL 0.2 mg/dL (0.2-1.3); CALCIUM 7.9 mg/dL (8.5-10.1); CARBON DIOXIDE 22.7 mmol/L (21.0-32.0); CREATININE - SERUM 0.9 mg/dL (0.6-1.3); POTASSIUM - SERUM 3.9 mmol/L (3.5-5.1); PROTEIN - SERUM 6.3 g/dL (6.4-8.2)
[2017-11-23 09:32] VITALS: BP 120/64; Ht 162.6 cm; Wt 64.1 kg
[2017-12-03 22:15] LABS: OVA + PARASITE EXAM Final report (())
== END 2017-11-23 12:38 | disposition home or self-care (01) ==
LOC: D.OPS 08:26
PROVIDERS: Internal Medicine Gastroenterology
DX: Z86.010 Personal history of colon polyps (principal); Z01.812 Encounter for preprocedural laboratory examination

== ENCOUNTER → 2018-03-16 14:48 | Day surgery (SDC) | payer MEDICARE, MEDICAID ==
[~2018-03-16] VITALS: Ht 162.6 cm; Wt 64.5 kg
--- NOTE | ~2018-03-16 | OP ---
PATIENT NAME: BRITNEY MCNEAL MEDICAL RECORD: [id number] :51 LOCATION:YANY ADMISSION DATE: SURGEON: MICHELA QUEVEDO MD DATE OF OPERATION: 03/16/2018 PROCEDURE: EGD with biopsy. REFERRING PHYSICIAN: Abigail Lawler MD INDICATIONS: Ms. Mcneal is a pleasant 62-year-old woman with a history of CVA, seizures, who has had symptoms of heartburn, nausea, vomiting, gas, bloating as well as diarrhea. She has a history of pancreatitis with hospitalization at [facility] in June 2017. She had an outpatient colonoscopy on 11/23/2017, for further evaluation of abnormal weight loss and a change in bowel pattern with finding showing a normal appearing colonic mucosa and terminal ileum (random colon biopsies show benign colonic mucosa with no significant pathologic change). Her hemoglobin today is 12.8, white blood cell count 3.3 and platelet count 127. She presents for an outpatient EGD. PREMEDICATIONS: Total IV anesthesia (history of seizures and CVA) and propofol 80 mg. INSTRUMENT: Olympus video [id number]. PROCEDURE AND FINDINGS: After receiving informed consent, Ms. Mcneal's posterior pharynx was anesthetized with Cetacaine spray. She was placed in left lateral decubitus position and sedated as per anesthesia. After achieving an adequate level of sedation, the scope was introduced per orally and advanced into the proximal gastric pouch without difficulty. The esophageal mucosa was notable for an irregular Z-line suggestive of acid reflux and biopsies were taken from the distal third of the esophagus. The proximal gastric pouch had stigmata of recent bleeding (brown pigmented material) and of the gastrojejunal anastomosis was widely patent. There was some old food just distal to the anastomosis and the jejunum. The scope was advanced out to the jejunum and biopsies were taken. The jejunal mucosa appeared normal without erythema or ulcers. The scope was then withdrawn back into the gastric pouch and then through the opening and down into the stomach proper where the body and antrum of the body were seen. The mucosa was mildly erythematous in the antrum. There was old food sitting in the body of the stomach. Pylorus was patent and competent. Duodenal mucosa was without erythema or ulcers, appeared normal through the second portion. Biopsies were taken from the second portion of the duodenum. Gastroscope was withdrawn to the stomach and biopsies were also taken from the gastric pouch. Scope was then withdrawn. Ms. Mcneal tolerated the procedure well, no immediate complications. ASSESSMENT: 1. Distal esophagitis secondary to gastroesophageal reflux disease. 2. Status post gastric bypass with stigmata of bleeding in the gastric pouch, likely secondary to Meloxicam. 3. Gastric pouch anastomosis with the jejunum was widely patent, appeared normal. 4. Old food retained in the body of the stomach. 5. Normal appearing duodenal mucosa through the second portion, status post biopsy. 6. History of gastric bypass. OPERATIVE REPORT [id number] ELIZABETBRITNEY RECOMMENDATIONS: 1. Avoid nonsteroidal anti-inflammatory drugs. 2. Increased Prilosec 40 mg p.o. twice a day. 3. Trial of Carafate 1 g tablet dissolved in water and drink as a slurry 3 times a day. 4. Follow up histopathology. TRANSINT:[id number] Voice Confirmation ID: [id number] DOCUMENT ID: [id number] MICHELA QUEVEDO MD at 1541 CC: DEBORA LAWLER MD [id number] DICTATION DATE: 03/16/18 175 GLAZIER METAL FURNITURE: 03/16/18 2237 [facility] 03/16/18 [place] [id number] [place] [address]
[~2018-03-16 14:48] MED LIST changes: +BENTYL10 MG PO; +REQUIP1 MG PO; +VITAMIN E100 UNIT PO; +ZANAFLEX2 M1 PO
[2018-03-16 15:50] LABS: ANION GAP 13.2 mmol/L (8-16); CALCIUM 8.2 mg/dL (8.5-10.1); CARBON DIOXIDE 24.8 mmol/L (21.0-32.0)
[2018-03-16 16:09] VITALS: Ht 162.6 cm; Wt 64.5 kg
[2018-03-16 16:12] LABS: BASOPHILS 0.3 % (0-2); EOSINOPHILS 1.2 % (0-7); HEMATOCRIT 39.1 % (36.0-48.0); HEMOGLOBIN 12.8 g/dL (12-16); IMMATURE GRANULOCYTES 0.3 % (0-5); LYMPHOCYTES 25.2 % (15-50); MCH 31.4 pg (26.0-34.0); MCHC 32.7 g/dL (31.0-37.0); MCV 95.8 fL (80.0-100.0); MEAN PLATELET VOLUME 11.1 fL (7.4-10.4); MONOCYTES 9.8 % (2-11); NEUTROPHILS 63.2 % (40-80); RBC 4.08 10x6/uL (4.00-5.40); RDW 13.6 % (11.5-14.5); WBC 3.3 10x3/uL (4.8-10.8)
[2018-03-16 16:19] LABS: PLATELET COUNT 127 10x3/uL (130-400)
== END | disposition home or self-care (01) ==
LOC: D.OPS 14:48
PROVIDERS: Anesthesiology; Internal Medicine Gastroenterology
DX: K21.0 Gastro-esophageal reflux disease with esophagitis (principal); K91.89 Other postprocedural complications and disorders of digestive system; Z86.73 Personal history of transient ischemic attack (TIA), and cerebral infarction without residual deficits; R56.9 Unspecified convulsions; Z01.812 Encounter for preprocedural laboratory examination

== ENCOUNTER → 2018-03-19 06:58 | Outpatient (CLI) | payer MEDICARE, MEDICAID ==
[2018-03-16 16:09] VITALS: BMI 24.4
== END | disposition home or self-care (01) ==
LOC: D.RAD 06:58
DX: R10.13 Epigastric pain (principal); R11.2 Nausea with vomiting, unspecified; K21.9 Gastro-esophageal reflux disease without esophagitis

== ENCOUNTER → 2018-06-29 10:26 | Outpatient (CLI) | payer MEDICARE, MEDICAID ==
[2018-03-16 16:09] VITALS: BMI 24.4
--- NOTE | ~2018-06-29 | EC ---
PATIENT:BRITNEY MCNEAL DATE OF SERVICE: 06/29/18 SEX: F MEDICAL RECORD: [id number] DATE OF : 51 LOCATION:[facility]FORMERLY [facility] AGE OF PATIENT: 62 ADMISSION DATE: 06/29/18 REFERRING PHYSICIAN: INTERPRETING PHYSICIAN: BILLY ORTIZ MD ECHOCARDIOGRAM REPORT ECHO CHARGES 4 ECHO COMPLETE Date: 06/29/18 CLINICAL DIAGNOSIS: MVR ECHOCARDIOGRAPHIC MEASUREMENTS (adult normal given) AC root (d.<3.7cm) 2.7 cm LV Septum d (<1.2 cm> 1.2 cm Valve Excursion 1.1 cm LV Septum (systole) 1.3 cm Left Atria (s.<4.0cm> 5.3 cm LVPW d(<1.2cm) 1.3 cm RV (d.<2.3cm) 4.5 cm LVPW (sytole) 1.6 cm LV diastole(<5.6CM) 4.7 cm MV E-F(>70mm/sec) cm LV systole 2.9 cm LVOT Diameter 1.6 cm MV exc.(>10mm) 1.0 cm Est.ejection fraction (50-75%) % DOPPLER: LVIT cm/sec A 52.0 cm/sec E 176 cm/sec LA cm/sec RVSP 45 mmHg LVOT 104 cm/sec AOP1/2T m/s Asc. Ao 146 cm/sec RVOT 55 cm/sec RA cm/sec PA 103 cm/sec AV Gradient Peak 8.56 mmHg AV Mean 4.31 mmHg AV Area 1.3 cm MV Gradient Peak 19.77mmHg MV Mean 6.80 mmHg MV Area cm COMMENTS: Cvt Tech: Yanely [employer] Access Coordinator: 1 Dr. Ortiz TAPE# PACS Pericardial Effusion N DATE OF SERVICE: 06/29/2018 ECHOCARDIOGRAM DATE OF SERVICE: 06/29/2018 FINDINGS: 1. Left ventricular chamber size is within normal limits. Left ventricular systolic function is normal. Overall ejection fraction estimated at 55% to 60%. 2. Left atrium is enlarged at 5.3 cm. Right atrium and right ventricular ECHOCARDIOGRAM REPORT [id number] BRITNEY MCNEAL chamber sizes are as well fvep-lt-ymvsnyxfrj dilated. 3. Valvular structures: Mitral valve was replaced with a tissue prosthesis with normal structure and function in this position. 4. Doppler interrogation reveals moderate mitral regurgitation, kcnr-tu-wzzrmvbh tricuspid regurgitation, no other valvular insufficiency or stenosis. Pulmonary systolic pressure is elevated estimated at 45 mmHg. 5. No evidence of pericardial effusion or left ventricular thrombus. TRANSINT:[id number] Voice Confirmation ID: [id number] DOCUMENT ID: [id number] BILLY ORTIZ MD CC: [id number] DICTATION DATE: 06/30/18 0844 FOOT GATHERER: 06/30/18 0959 DEP CLI 06/29/18 [place] [id number] [place] [id number]
== END | disposition home or self-care (01) ==
LOC: D.HCCARDIO 06-24 10:30
PROVIDERS: ATTEND Internal Medicine Interventional Cardiology
DX: Z95.2 Presence of prosthetic heart valve (principal)

== ENCOUNTER 2019-06-07 14:28 | Inpatient (IN) | payer MEDICARE, MEDICAID ==
[~2019-06-07] VITALS: Ht 162.6 cm; Wt 64.5 kg
[2019-06-07 17:02] LABS: BASOPHILS 0.2 % (0-2); EOSINOPHILS 2.2 % (0-7); HEMATOCRIT 39.5 % (36.0-48.0); HEMOGLOBIN 12.8 g/dL (12-16); IMMATURE GRANULOCYTES 0.2 % (0-5); LYMPHOCYTES 15.6 % (15-50); MCH 30.7 pg (26.0-34.0); MCHC 32.4 g/dL (31.0-37.0); MCV 94.7 fL (80.0-100.0); MEAN PLATELET VOLUME 10.1 fL (7.4-10.4); MONOCYTES 9.2 % (2-11); NEUTROPHILS 72.6 % (40-80); PLATELET COUNT 127 10x3/uL (130-400); RBC 4.17 10x6/uL (4.00-5.40); RDW 13.6 % (11.5-14.5)
[2019-06-07 17:18] LABS: CALCIUM 8.5 mg/dL (8.5-10.1); CARBON DIOXIDE 28.6 mmol/L (21.0-32.0); CREATININE - SERUM 1.1 mg/dL (0.6-1.3); POTASSIUM - SERUM 3.6 mmol/L (3.5-5.1)
[2019-06-07 17:25] LABS: ALBUMIN 3.2 g/dL (3.4-5.0); BILIRUBIN - TOTAL 0.24 mg/dL (0.2-1.3); PROTEIN - SERUM 6.5 g/dL (6.4-8.2)
[2019-06-07 17:31] LABS: APTT 33.2 SECONDS (22.8-39.4); INR 1.04 (0.85-1.17); PROTIME 13.5 SECONDS (11.6-15.0)
[2019-06-07 17:55] LABS: BILIRUBIN NEGATIVE (NEGATIVE); GLUCOSE NEGATIVE (NEGATIVE); KETONE NEGATIVE (NEGATIVE); NITRITE NEGATIVE (NEGATIVE); UROBILINOGEN NORMAL (NORMAL)
[2019-06-07 19:16] VITALS: BP 134/77
[2019-06-07 19:27] LABS: CKMB 0.8 U/L (0.0-3.6); CREATINE KINASE 50 UL (21-215); TROPONIN-I < 0.017 ng/mL (0.000-0.060)
--- NOTE | 2019-06-07 19:27 | NUR ---
MULTIPLE IV ATTEMPTS BY 2 NURSES. UNABLE TO GET IV STARTED AT THIS TIME. REPORT GIVEIN TO ONCOMING NURSE, KAITLIN.
[2019-06-07 19:50] VITALS: BP 140/83
--- NOTE | 2019-06-07 23:15 | NUR ---
PT BROUGHT FROM ER VIA STRETCHER BY STAFF. NO SIGNS OR SYMPTOMS OF DISTRESS NOTED. RESPIRATIONS EVEN AND UNLABORED. PT ENCOURAGED TO CALL FOR HELP WHEN GETTING IN AND OUT OF BED. FALL SOCKS ARE ON AND CALL LIGHT IS WITH IN REACH. BED IS IN LOWEST POSITION. WILL CONTINUE TO MONITOR
[2019-06-08] VITALS: BP 145/82
--- NOTE | 2019-06-08 03:06 | NUR ---
ASSIST PT WITH BEDPAN PT VOIDED 300CC. CALL LIGHT WITH IN REACH AND BED IS IN LOWEST POSITION. PT ENCOURAGED TO CALL FOR HELP WHEN GETTIN GIN AND OUT OF BED. WILL CONTINUE TO MONITOR
--- NOTE | 2019-06-08 04:44 | NUR ---
ASSIST PT TO RESTROOM. NO SIGNS OF DISTRESS NOTED. RESPIRATIONS EVEN AND UNLABORED. CALL LIGHT WITH IN REACH AND BED IS IN LOWEST POSITION. WILL CONTINUE TO MONITOR
[2019-06-08 05:11] VITALS: BMI 23.9
[2019-06-08 05:13] VITALS: BP 107/63
[2019-06-08 08:23] LABS: BASOPHILS 0.2 % (0-2); EOSINOPHILS 4.8 % (0-7); HEMATOCRIT 36.6 % (36.0-48.0); HEMOGLOBIN 11.9 g/dL (12-16); IMMATURE GRANULOCYTES 0.2 % (0-5); LYMPHOCYTES 22.6 % (15-50); MCH 30.7 pg (26.0-34.0); MCHC 32.5 g/dL (31.0-37.0); MCV 94.6 fL (80.0-100.0); MEAN PLATELET VOLUME 9.6 fL (7.4-10.4); MONOCYTES 11.6 % (2-11); NEUTROPHILS 60.6 % (40-80); PLATELET COUNT 113 10x3/uL (130-400); RBC 3.87 10x6/uL (4.00-5.40); RDW 13.7 % (11.5-14.5); WBC 4.2 10x3/uL (4.8-10.8)
[2019-06-08 08:58] LABS: ALBUMIN 2.5 g/dL (3.4-5.0); ANION GAP 13.4 mmol/L (8-16); BILIRUBIN - DIRECT 0.07 mg/dL (0.00-0.30); BILIRUBIN - INDIRECT 0.13 mg/dL (0.00-1.00); BILIRUBIN - TOTAL 0.2 mg/dL (0.2-1.3); CALCIUM 7.7 mg/dL (8.5-10.1); CREATININE - SERUM 0.9 mg/dL (0.6-1.3); MAGNESIUM - SERUM 1.8 mg/dL (1.8-2.4); PHOSPHOROUS 3.1 mg/dL (2.5-4.9); POTASSIUM - SERUM 3.4 mmol/L (3.5-5.1); PROTEIN - SERUM 5.5 g/dL (6.4-8.2); THYROID STIMULATING HORMONE 3.34 uIU/mL (0.36-3.74); VALPROIC ACID (DEPAKOTE) 45.9 ug/mL (50.0-100.0)
[2019-06-08 09:00] VITALS: BP 104/59
--- NOTE | 2019-06-08 09:30 | NUR ---
REHAB PRESCREENING Rehab referral received and chart reveiwed. Ms. Rutledge has [facility] as her insurance provider which requires prior authorization. OT eval will need to be ordered. PT has been ordered, not completed as of yet. Rehab will begin pre-auth process as soon as therapy notes are in place. Thank you for this referral! Norah Dunn, SHIP RIGGER Rehab PD
[2019-06-08 13:52] VITALS: BP 109/67
[2019-06-08 17:25] VITALS: BP 102/61
--- NOTE | 2019-06-08 18:32 | MORECARE ---
CASE MANAGEMENT DISCHARGE SUMMARY PATIENT: BRITNEY MCNEAL UNIT: [id number] ADM DATE: 06/07/19 AGE: 63 : 51 SEX: F ROOM/BED: D.2250 AUTHOR: KOMAL,DOC PHYSICIAN: REFERRING PHYSICIAN: ANT MEDINA MD DATE OF SERVICE: 06/08/19 Discharge Plan Patient Name: BRITNEY MCNEAL Facility: [facility]:[place] : 1955 Planned Disposition: Home with Home Health Anticipated Discharge Date: 06/08/19 Discharge Date: Expected LOS: 1 Initial Reviewer: [id number] Initial Review Date: 06/08/2019 Generated: 06/08/19 7:32 pm Comments DCP- Discharge Planning Updated by [id number]: Dameon Cummins on 06/08/19 5:[address] Patient Name: BRITNEY MCNEAL Admission Status: ER Accout number: [id number] Admission Date: 06-07-2019 : 1955 Admission Diagnosis: Attending: ANT MEDINA Current LOS: 1 Anticipated DC Date: 06-08-2019 Planned Disposition: Home with Home Health Primary Insurance: [facility] MEDICARE [employer] PLANNED EXTERNAL PROVIDER: NO HOME HEALTH PROVIDER PREFERENCE Discharge Planning Comments: CM RECEIVED INPAITENT REHAB PRESCREENING ORDER. MET WITH PTAND SPOUSE IN ROOM TO DISCUSS DISCHARGE PLANNING AND NEEDS. BRITNEY MCNEAL provided verbal consent to discuss current and ongoing needs with/in the presence of: SPOUSE, JL. PT REPORTS LIVING AT HOME INDEPENDENTLY WITH HER SPOUSE AND SON WHO ASSIST WITH MEDIATION MANAGEMENT AND HER CARE NEEDED. PT HAS WALKER AND WHEELCHAIR WITH NO MEDICAL EQUIPMENT PROVIDER PREFERENCE. PT HAS NO OUTSIDE SERVICES ASSISTING IN THE HOME. CM DISCUSSED AVAILABILITY OF HOME HEALTH, REHAB SERVICES AND MEDICAL EQUIPMENT. PT AND SPOUSE DENIES NEED OF REHAB SERVICES, PT PLANS TO RETURN HOME WITH FAMILY AND WILL ACCEPT HOME HEALTH WITH NO PROVIDER PREFERENCE. PT REPORTS HER SPOUSE WILL PICK HER UP FOR DISCHARGE HOME. IMPORTANT MESSAGE FROM MEDICARE PROVIDED AND EXPLAINED. PT DECLINES REHAB; WILL ACCEPT HOME HEALTH. CM WILL ARRANGE WITH NO PROVIDER PREFERNECE WITH PHYSICIAN AGREEMENT AND HOME HEALTH ORDERS. PT PLANS TO DISCHARGE HOME WITH SPOUSE AND ADULT SON, FAMILY TO TRANSPORT HOME. CM TO FOLLOW AND ASSIST IF NEEDED. Tool Design Draftsperson: Dameon Cummins DCPIA - Discharge Planning Initial Assessment Updated by [id number]: Dameon Cummins on 06/08/19 6:25 pm * Is the patient Alert and Oriented? Yes * How many steps to enter\exit or inside your home? * PCP DR. LAWLER * Pharmacy [facility] [address] * Preadmission Environment Home with Family * ADLs Partial Dependent * Partial ADLs (Assistance needed) Medication Management * Equipment Walker Wheelchair * Other Equipment NO MEDICAL EQUIPMENT PROVIDER PREFERENCE * List name and contact numbers for known caregivers / representatives who currently or will assist patient after discharge: ANDIE MCNEAL, SPOUSE, * Verbal permission to speak to the caregivers and representatives has been obtained from the patient. N/A * Community resources currently utilized None * Please name any agencies selected above. NONE * Additional services required to return to the preadmission environment? No * Can the patient safely return to the preadmission environment? Yes * Has this patient been hospitalized within the prior 30 days at any hospital? No Coverage Notice Reviewer: [id number] Cummins Notice Issued Date-Time: 06/08/2019 13:45 Notice Type: IM Discharge Notice Notice Delivered To: Patient Relationship to Patient: Platen Drier Operator Name: Delivery Method: HAND - Hand Delivered Alice Days: Prior Verbal Notification: Recipient Understood Notice: Yes Recipient Signature: Yes Med Rec Note Co-signed by Attending: Coverage Notice Comment: Reviewer: GAVIOTA Cummins Notice Issued Date-Time: 06/08/2019 13:45 Notice Type: Patient Choice Letter Notice Delivered To: Patient Relationship to Patient: Platen Drier Operator Name: Delivery Method: HAND - Hand Delivered Alice Days: Prior Verbal Notification: Recipient Understood Notice: Yes Recipient Signature: Yes Med Rec Note Co-signed by Attending: Coverage Notice Comment: DECLINED REHAB ACCEPTED HOME HEALTH, NO PROVIDER PREFERENCE Patient Name: BRITNEY MCNEAL Page [phone] at 1832 All edits/amendments must be made on the electronic document DICTATION DATE: 06/08/191831 SUPERVISOR LIME: JAYDON 06/08/191831 RPT#: [id number] DC DATE: STATUS: ADM IN [facility] [address] [place] [address] END OF REPORT
[2019-06-08 20:00] VITALS: BP 97/56
--- NOTE | 2019-06-08 20:06 | NUR ---
EVENING ROUNDS COMPLETED. VSS, AAOX4, NO S/S OF RT DISTRESS. PT RESTING COMFORTABLY IN BED. DENIES ANY PAIN. NS INFUSING @ 100MLS/HR. PT STATES SHE IS HAVING A LIOTTLE TROUBLE EATING DINNER. PT OFFERED JELLO. PT VOICED THANKS. PT DENIES ANY FURTHER NEEDS AT THIS TIME. WILLCPOC. CL WITHIN REACH.
[2019-06-09] VITALS: BP 105/63
[2019-06-09 04:00] VITALS: BP 107/62
[2019-06-09 05:39] LABS: HEMATOCRIT 32.2 % (36.0-48.0); HEMOGLOBIN 10.5 g/dL (12-16); MCH 30.5 pg (26.0-34.0); MCHC 32.6 g/dL (31.0-37.0); MCV 93.6 fL (80.0-100.0); MEAN PLATELET VOLUME 9.8 fL (7.4-10.4); PLATELET COUNT 121 10x3/uL (130-400); RBC 3.44 10x6/uL (4.00-5.40); RDW 13.6 % (11.5-14.5)
[2019-06-09 05:43] LABS: WBC 2.8 10x3/uL (4.8-10.8)
[2019-06-09 05:57] LABS: CALC OSMOLALITY 281 mosm/kg (275-300); CALCIUM 7.6 mg/dL (8.5-10.1); CARBON DIOXIDE 24.1 mmol/L (21.0-32.0); CHLORIDE - SERUM 109 mmol/L (98-107); CREATININE - SERUM 0.7 mg/dL (0.6-1.3); GLUCOSE 77 mg/dL (74-106); MAGNESIUM - SERUM 1.8 mg/dL (1.8-2.4); PHOSPHOROUS 3.1 mg/dL (2.5-4.9); POTASSIUM - SERUM 3.3 mmol/L (3.5-5.1); SODIUM 141 mmol/L (136-145); UREA NITROGEN 17 mg/dL (7-18); eGFR NON AFRICAN AMERICAN 89 mL/min (90-120)
[2019-06-09 06:13] LABS: ANISOCYTOSIS OCC; EOSINOPHILS 6 % (0-7); LYMPHOCYTES 22 % (15-50); NEUTROPHILS 72 % (40-80); PLATELET ESTIMATE DECREASED
--- NOTE | 2019-06-09 07:04 | NUR ---
REPORT RECEIVED. WILL CONTINUE WITH POC. PT CURRENTLY LYING SEMI FOWLERS. CALL LIGHT W/I REACH. PT IS AAO AND UP WITH ASSIST. RR EVEN AND UNLABORED ON RA. NS INFUSING @100ML/HR VIA L.UPPER ARM PIV. NO S/S OF DISTRESS NOTED. PT DENIES ANY NEEDS. WILL CTM.
[2019-06-09 08:57] VITALS: BP 120/67
--- NOTE | 2019-06-09 10:02 | MORECARE ---
CASE MANAGEMENT DISCHARGE SUMMARY PATIENT: BRITNEY MCNEAL UNIT: [id number] ADM DATE: 06/07/19 AGE: 63 : 53 SEX: F ROOM/BED: D.2103 AUTHOR: KOMAL,DOC PHYSICIAN: REFERRING PHYSICIAN: ANT MEDINA MD DATE OF SERVICE: 06/09/19 Discharge Plan Patient Name: BRITNEY MCNEAL Facility: [facility]:[place] : 1955 Planned Disposition: Home with Home Health Anticipated Discharge Date: 06/08/19 Discharge Date: Expected LOS: 1 Initial Reviewer: [email or web address] Initial Review Date: 06/08/2019 Generated: 06/09/19 11:02 am Comments DCP- Discharge Planning Updated by [id number]: Amairani Conway on 06/09/19 9:[address] ESCOBEDO SERVED, EXPLAINED, AND SIGNED BY PATIENT. THE ORIGINAL WAS PROVIDED TO THE PATIENT AND COPY PLACED ON CHART. DCP- Discharge Planning Updated by [email or web address]: Dameon Cummins on 06/08/19 5:[address] Patient Name: BRITNEY MCNEAL Admission Status: ER Accout number: [id number] Admission Date: 06-07-2019 : 1955 Admission Diagnosis: Attending: ANT MEDINA Current LOS: 1 Anticipated DC Date: 06-08-2019 Planned Disposition: Home with Home Health Primary Insurance: [facility] MEDICARE [employer] PLANNED EXTERNAL PROVIDER: NO HOME HEALTH PROVIDER PREFERENCE Discharge Planning Comments: CM RECEIVED INPAITENT REHAB PRESCREENING ORDER. MET WITH PTAND SPOUSE IN ROOM TO DISCUSS DISCHARGE PLANNING AND NEEDS. BRITNEY MCNEAL provided verbal consent to discuss current and ongoing needs with/in the presence of: SPOUSE, JL. PT REPORTS LIVING AT HOME INDEPENDENTLY WITH HER SPOUSE AND SON WHO ASSIST WITH MEDIATION MANAGEMENT AND HER CARE NEEDED. PT HAS WALKER AND WHEELCHAIR WITH NO MEDICAL EQUIPMENT PROVIDER PREFERENCE. PT HAS NO OUTSIDE SERVICES ASSISTING IN THE HOME. CM DISCUSSED AVAILABILITY OF HOME HEALTH, REHAB SERVICES AND MEDICAL EQUIPMENT. PT AND SPOUSE DENIES NEED OF REHAB SERVICES, PT PLANS TO RETURN HOME WITH FAMILY AND WILL ACCEPT HOME HEALTH WITH NO PROVIDER PREFERENCE. PT REPORTS HER SPOUSE WILL PICK HER UP FOR DISCHARGE HOME. IMPORTANT MESSAGE FROM MEDICARE PROVIDED AND EXPLAINED. PT DECLINES REHAB; WILL ACCEPT HOME HEALTH. CM WILL ARRANGE WITH NO PROVIDER PREFERNECE WITH PHYSICIAN AGREEMENT AND HOME HEALTH ORDERS. PT PLANS TO DISCHARGE HOME WITH SPOUSE AND ADULT SON, FAMILY TO TRANSPORT HOME. CM TO FOLLOW AND ASSIST IF NEEDED. [employer] Mill Worker: Dameon Cummins DCPIA - Discharge Planning Initial Assessment Updated by [email or web address]: Dameon Cummins on 06/08/19 6:25 pm * Is the patient Alert and Oriented? Yes * How many steps to enter\exit or inside your home? * PCP DR. LAWLER * Pharmacy [facility] [address] * Preadmission Environment Home with Family * ADLs Partial Dependent * Partial ADLs (Assistance needed) Medication Management * Equipment Walker Wheelchair * Other Equipment NO MEDICAL EQUIPMENT PROVIDER PREFERENCE * List name and contact numbers for known caregivers / representatives who currently or will assist patient after discharge: ANDIE MCNEAL, SPOUSE, * Verbal permission to speak to the caregivers and representatives has been obtained from the patient. N/A * Community resources currently utilized None * Please name any agencies selected above. NONE * Additional services required to return to the preadmission environment? No * Can the patient safely return to the preadmission environment? Yes * Has this patient been hospitalized within the prior 30 days at any hospital? No Coverage Notice Reviewer: [id number] Elizabeth Cummins Notice Issued Date-Time: 06/08/2019 13:45 Notice Type: IM Discharge Notice Notice Delivered To: Patient Relationship to Patient: Rubber Stamps And Dies Supervisor Name: Delivery Method: HAND - Hand Delivered Alice Days: Prior Verbal Notification: Recipient Understood Notice: Yes Recipient Signature: Yes Med Rec Note Co-signed by Attending: Coverage Notice Comment: Reviewer: [id number] Elizabeth Cummins Notice Issued Date-Time: 06/08/2019 13:45 Notice Type: Patient Choice Letter Notice Delivered To: Patient Relationship to Patient: Rubber Stamps [employer] Supervisor Name: Delivery Method: HAND - Hand Delivered Alice Days: Prior Verbal Notification: Recipient Understood Notice: Yes Recipient Signature: Yes Med Rec Note Co-signed by Attending: Coverage Notice Comment: DECLINED REHAB ACCEPTED HOME HEALTH, NO PROVIDER PREFERENCE Reviewer: [id number] Elizabeth Cownay Notice Issued Date-Time: 06/09/2019 9:40 Notice Type: Medicare Outpatient Observation Notice Notice Delivered To: Patient Relationship to Patient: Rubber Stamps [employer] Supervisor Name: Delivery Method: HAND - Hand Delivered Alice Days: Prior Verbal Notification: Recipient Understood Notice: Yes Recipient Signature: Yes Med Rec Note Co-signed by Attending: Coverage Notice Comment: ESCOBEDO SERVED, EXPLAINED, AND SIGNED BY PATIENT. THE ORIGINAL WAS PROVIDED TO THE PATIENT AND COPY PLACED ON CHART. Last DP export: 06/08/19 5:32 p Patient Name: BRITNEY MCNEAL Page [phone] at 1002 All edits/amendments must be made on the electronic document DICTATION DATE: 06/09/19 1002 STUMPER FELLER: JAYDON 06/09/19 1002 RPT#: [id number] DC DATE: STATUS: ADM IN [facility] [address] [place] [address] END OF REPORT
--- NOTE | 2019-06-09 11:54 | MORECARE ---
CASE MANAGEMENT DISCHARGE SUMMARY PATIENT: BRITNEY MCNEAL UNIT: [id number] ADM DATE: 06/07/19 AGE: 63 : 51 SEX: F ROOM/BED: D.2109 AUTHOR: KOMAL,DOC PHYSICIAN: REFERRING PHYSICIAN: ANT MEDINA MD DATE OF SERVICE: 06/09/19 Discharge Plan Patient Name: BRITNEY MCNEAL Facility: [facility]:[place] : 1955 Planned Disposition: Home with Home Health Anticipated Discharge Date: 06/08/19 Discharge Date: Expected LOS: 1 Initial Reviewer: [id number] Initial Review Date: 06/08/2019 Generated: 06/09/19 12:54 pm DCP- Discharge Planning Updated by [id number]: Amairani Conway on 06/09/19 9:[address] ESCOBEDO SERVED, EXPLAINED, AND SIGNED BY PATIENT. THE ORIGINAL WAS PROVIDED TO THE PATIENT AND COPY PLACED ON CHART. DCP- Discharge Planning Updated by [id number]: Dameon Cummins on 06/08/19 5:[address] Patient Name: BRITNEY MCNEAL Admission Status: ER Accout number: [id number] Admission Date: 06-07-2019 : 1955 Admission Diagnosis: Attending: ANT MEDINA Current LOS: 1 Anticipated DC Date: 06-08-2019 Planned Disposition: Home with Home Health Primary Insurance: [facility] MEDICARE [email or web address] PLANNED EXTERNAL PROVIDER: NO HOME HEALTH PROVIDER PREFERENCE Discharge Planning Comments: CM RECEIVED INPAITENT REHAB PRESCREENING ORDER. MET WITH PTAND SPOUSE IN ROOM TO DISCUSS DISCHARGE PLANNING AND NEEDS. BRITNEY MCNEAL provided verbal consent to discuss current and ongoing needs with/in the presence of: SPOUSE, JL. PT REPORTS LIVING AT HOME INDEPENDENTLY WITH HER SPOUSE AND SON WHO ASSIST WITH MEDIATION MANAGEMENT AND HER CARE NEEDED. PT HAS WALKER AND WHEELCHAIR WITH NO MEDICAL EQUIPMENT PROVIDER PREFERENCE. PT HAS NO OUTSIDE SERVICES ASSISTING IN THE HOME. CM DISCUSSED AVAILABILITY OF HOME HEALTH, REHAB SERVICES AND MEDICAL EQUIPMENT. PT AND SPOUSE DENIES NEED OF REHAB SERVICES, PT PLANS TO RETURN HOME WITH FAMILY AND WILL ACCEPT HOME HEALTH WITH NO PROVIDER PREFERENCE. PT REPORTS HER SPOUSE WILL PICK HER UP FOR DISCHARGE HOME. IMPORTANT MESSAGE FROM MEDICARE PROVIDED AND EXPLAINED. PT DECLINES REHAB; WILL ACCEPT HOME HEALTH. CM WILL ARRANGE WITH NO PROVIDER PREFERNECE WITH PHYSICIAN AGREEMENT AND HOME HEALTH ORDERS. PT PLANS TO DISCHARGE HOME WITH SPOUSE AND ADULT SON, FAMILY TO TRANSPORT HOME. CM TO FOLLOW AND ASSIST IF NEEDED. Sludge Filtration Attendant: Dameon Cummins DCPIA - Discharge Planning Initial Assessment Updated by [id number]: Dameon Cummins on 06/08/19 6:25 pm * Is the patient Alert and Oriented? Yes * How many steps to enter\exit or inside your home? * PCP DR. LAWLER * Pharmacy [facility] [address] * Preadmission Environment Home with Family * ADLs Partial Dependent * Partial ADLs (Assistance needed) Medication Management * Equipment Walker Wheelchair * Other Equipment NO MEDICAL EQUIPMENT PROVIDER PREFERENCE * List name and contact numbers for known caregivers / representatives who currently or will assist patient after discharge: ANDIE MCNEAL, SPOUSE, * Verbal permission to speak to the caregivers and representatives has been obtained from the patient. N/A * Community resources currently utilized None * Please name any agencies selected above. NONE * Additional services required to return to the preadmission environment? No * Can the patient safely return to the preadmission environment? Yes * Has this patient been hospitalized within the prior 30 days at any hospital? No External Providers External Provider: OTHER-OTHER Next Contact Date: Service Request Date: Service Type: Resolution: Reviewer: Comments: Coverage Notice Reviewer: [id number] Elizabeth Cummins Notice Issued Date-Time: 06/08/2019 13:45 Notice Type: IM Discharge Notice Notice Delivered To: Patient Relationship to Patient: Chain Builder Name: Delivery Method: HAND - Hand Delivered Alice Days: Prior Verbal Notification: Recipient Understood Notice: Yes Recipient Signature: Yes Med Rec Note Co-signed by Attending: Coverage Notice Comment: Reviewer: [id number] Elizabeth Cummins Notice Issued Date-Time: 06/08/2019 13:45 Notice Type: Patient Choice Letter Notice Delivered To: Patient Relationship to Patient: Chain Builder Name: Delivery Method: HAND - Hand Delivered Alice Days: Prior Verbal Notification: Recipient Understood Notice: Yes Recipient Signature: Yes Med Rec Note Co-signed by Attending: Coverage Notice Comment: DECLINED REHAB ACCEPTED HOME HEALTH, NO PROVIDER PREFERENCE Reviewer: [id number] Elizabeth Conway Notice Issued Date-Time: 06/09/2019 9:40 Notice Type: Medicare Outpatient Observation Notice Notice Delivered To: Patient Relationship to Patient: Chain Builder Name: Delivery Method: HAND - Hand Delivered Alice Days: Prior Verbal Notification: Recipient Understood Notice: Yes Recipient Signature: Yes Med Rec Note Co-signed by Attending: Coverage Notice Comment: ESCOBEDO SERVED, EXPLAINED, AND SIGNED BY PATIENT. THE ORIGINAL WAS PROVIDED TO THE PATIENT AND COPY PLACED ON CHART. Last DP export: 06/09/19 9:02 a Patient Name: BRITNEY MCNEAL Page [phone] at 1154 All edits/amendments must be made on the electronic document DICTATION DATE: 06/09/19 1154 SUPPLY TECHNICIAN: JAYDON 06/09/19 1154 RPT#: [id number] DC DATE: STATUS: ADM IN [facility] [address] [place] [address] END OF REPORT
[2019-06-09 12:02] VITALS: BP 104/64
[2019-06-09 14:12] LABS: ERYTHROCYTE SEDIMENTATION RATE 10 mm/hr (0-30)
[2019-06-09 17:07] VITALS: BP 124/67
[2019-06-09 17:24] VITALS: Ht 162.6 cm; Wt 64.5 kg
--- NOTE | 2019-06-09 17:49 | NUR ---
OT NOTE: PT COMPLETED ADL MOB WITH CGA. PT COMPLETED SUPINE TO SIT WITH CGA. PT REQUIRED CUES FOR INCREASED PARTICIPATION, [phone] THANK YOU,ELIZABETH BOLANOS
[2019-06-09 20:00] VITALS: BP 124/61
--- NOTE | 2019-06-09 22:42 | NUR ---
PT IN BED, AAO X 3, RESP EVEN AND UNLABORED. NO DISTRESS NOTED. CL IN REACH, SR UP X 2.
[2019-06-10] VITALS: BP 106/53
--- NOTE | 2019-06-10 03:08 | NUR ---
I have reviewed this patient and I concur with the Shift Assessment completed by the Licensed Practical Nurse today this shift.
[2019-06-10 04:00] VITALS: BP 116/66
[2019-06-10 07:17] LABS: HEMATOCRIT 34.1 % (36.0-48.0); HEMOGLOBIN 10.9 g/dL (12-16); MCH 30.4 pg (26.0-34.0); MEAN PLATELET VOLUME 12.2 fL (7.4-10.4); RBC 3.59 10x6/uL (4.00-5.40); RDW 13.3 % (11.5-14.5); WBC 2.5 10x3/uL (4.8-10.8)
[2019-06-10 07:19] LABS: PLATELET COUNT 76 10x3/uL (130-400)
[2019-06-10 07:31] LABS: CALC OSMOLALITY 278 mosm/kg (275-300); CALCIUM 7.5 mg/dL (8.5-10.1); CARBON DIOXIDE 23.5 mmol/L (21.0-32.0); CHLORIDE - SERUM 108 mmol/L (98-107); CREATININE - SERUM 0.8 mg/dL (0.6-1.3); GLUCOSE 77 mg/dL (74-106); MAGNESIUM - SERUM 1.7 mg/dL (1.8-2.4); PHOSPHOROUS 3.1 mg/dL (2.5-4.9); POTASSIUM - SERUM 3.5 mmol/L (3.5-5.1); SODIUM 140 mmol/L (136-145); UREA NITROGEN 16 mg/dL (7-18); eGFR NON AFRICAN AMERICAN 76 mL/min (90-120)
[2019-06-10 08:52] VITALS: BP 133/89
[2019-06-10 11:52] LABS: EOSINOPHILS 5 % (0-7); LYMPHOCYTES 37 % (15-50); MONOCYTES 10 % (2-11); NEUTROPHILS 47 % (40-80); PLATELET ESTIMATE DECREASED
[2019-06-10 11:53] LABS: ANISOCYTOSIS OCC; ROULEAUX OCC; SMUDGE CELLS OCC
[2019-06-10 12:46] VITALS: BP 114/67
[2019-06-10 17:42] VITALS: BP 115/68
[2019-06-10 20:44] VITALS: BP 134/73
[2019-06-11 01:16] VITALS: BP 117/67
[2019-06-11 05:12] LABS: BASOPHILS 0.4 % (0-2); EOSINOPHILS 3.3 % (0-7); HEMATOCRIT 33.1 % (36.0-48.0); HEMOGLOBIN 10.6 g/dL (12-16); IMMATURE GRANULOCYTES 0.4 % (0-5); LYMPHOCYTES 36.4 % (15-50); MCH 30.2 pg (26.0-34.0); MCV 94.3 fL (80.0-100.0); MEAN PLATELET VOLUME 10.2 fL (7.4-10.4); NEUTROPHILS 47.5 % (40-80); PLATELET COUNT 107 10x3/uL (130-400); RBC 3.51 10x6/uL (4.00-5.40); RDW 13.4 % (11.5-14.5); WBC 2.4 10x3/uL (4.8-10.8)
[2019-06-11 05:36] LABS: CALC OSMOLALITY 278 mosm/kg (275-300); CALCIUM 8.1 mg/dL (8.5-10.1); CARBON DIOXIDE 26.4 mmol/L (21.0-32.0); CHLORIDE - SERUM 107 mmol/L (98-107); CREATININE - SERUM 0.7 mg/dL (0.6-1.3); GLUCOSE 81 mg/dL (74-106); MAGNESIUM - SERUM 1.8 mg/dL (1.8-2.4); PHOSPHOROUS 3.4 mg/dL (2.5-4.9); POTASSIUM - SERUM 3.6 mmol/L (3.5-5.1); SODIUM 139 mmol/L (136-145); UREA NITROGEN 17 mg/dL (7-18); eGFR NON AFRICAN AMERICAN 89 mL/min (90-120)
[2019-06-11 05:45] VITALS: BP 105/61
--- NOTE | 2019-06-11 07:17 | NUR ---
PT ALERT AND ORIENTED, LYING IN BED, DAUGHTER AT BEDSIDE SLEEPING. PT REQUESTED LIGHT TURNED ON. NO COMPLAINTS OR CONCERNS THIS A.M. CL IN REACH,SRX2.
[2019-06-11 09:04] VITALS: BP 132/70
--- NOTE | 2019-06-11 10:17 | NUR ---
I have reviewed this patient and I concur with the Shift Assessment completed by the Licensed Practical Nurse today this shift.
--- NOTE | 2019-06-11 11:51 | NUR ---
PT AWAKE AND ORIENTED. SITTING UP IN BED TLKING TO . PLACED IN NEUTROPENIC PRECAUTIONS. PT IS UPSET THAT SHE MAY NOT GO HOME TODAY, STATING SHE IS DESPERATE AND WNT TO BE N HER OWN BED. BRANDI BARRAZA, SPOKE TO DR. MAURICIO PT WILL NEED A FOLLOW UP IN 2/3 WEEKS AT DISCHARGE. CL IN REACH, SRX2. FAMILY AT BEDSIDE IN APPROPRIATE PRECAUTIONS.
--- NOTE | 2019-06-11 12:39 | MORECARE ---
CASE MANAGEMENT DISCHARGE SUMMARY PATIENT: BRITNEY MCNEAL UNIT: [id number] ADM DATE: 06/10/19 AGE: 63 : 53 SEX: F ROOM/BED: D.2100 AUTHOR: KOMAL,DOC PHYSICIAN: REFERRING PHYSICIAN: ANT MEDINA MD DATE OF SERVICE: 06/11/19 Discharge Plan Patient Name: BRITNEY MCNEAL Facility: [facility]:[place] : 1955 Planned Disposition: Home with Home Health Anticipated Discharge Date: 06/08/19 Discharge Date: Expected LOS: 1 Initial Reviewer: [id number] Initial Review Date: 06/08/2019 Generated: 06/11/19 1:39 pm DCP- Discharge Planning Updated by [email or web address]: Amairani Conway on 06/09/19 9:[address] ESCOBEDO SERVED, EXPLAINED, AND SIGNED BY PATIENT. THE ORIGINAL WAS PROVIDED TO THE PATIENT AND COPY PLACED ON CHART. DCP- Discharge Planning Updated by [id number]: Dameon Cummins on 06/08/19 5:[address] Patient Name: BRITNEY MCNEAL Admission Status: ER Accout number: [id number] Admission Date: 06-07-2019 : 1955 Admission Diagnosis: Attending: ANT MEDINA Current LOS: 1 Anticipated DC Date: 06-08-2019 Planned Disposition: Home with Home Health Primary Insurance: [facility] MEDICARE [employer] PLANNED EXTERNAL PROVIDER: NO HOME HEALTH PROVIDER PREFERENCE Discharge Planning Comments: CM RECEIVED INPAITENT REHAB PRESCREENING ORDER. MET WITH PTAND SPOUSE IN ROOM TO DISCUSS DISCHARGE PLANNING AND NEEDS. BRITNEY MCNEAL provided verbal consent to discuss current and ongoing needs with/in the presence of: SPOUSE, JL. PT REPORTS LIVING AT HOME INDEPENDENTLY WITH HER SPOUSE AND SON WHO ASSIST WITH MEDIATION MANAGEMENT AND HER CARE NEEDED. PT HAS WALKER AND WHEELCHAIR WITH NO MEDICAL EQUIPMENT PROVIDER PREFERENCE. PT HAS NO OUTSIDE SERVICES ASSISTING IN THE HOME. CM DISCUSSED AVAILABILITY OF HOME HEALTH, REHAB SERVICES AND MEDICAL EQUIPMENT. PT AND SPOUSE DENIES NEED OF REHAB SERVICES, PT PLANS TO RETURN HOME WITH FAMILY AND WILL ACCEPT HOME HEALTH WITH NO PROVIDER PREFERENCE. PT REPORTS HER SPOUSE WILL PICK HER UP FOR DISCHARGE HOME. IMPORTANT MESSAGE FROM MEDICARE PROVIDED AND EXPLAINED. PT DECLINES REHAB; WILL ACCEPT HOME HEALTH. CM WILL ARRANGE WITH NO PROVIDER PREFERNECE WITH PHYSICIAN AGREEMENT AND HOME HEALTH ORDERS. PT PLANS TO DISCHARGE HOME WITH SPOUSE AND ADULT SON, FAMILY TO TRANSPORT HOME. CM TO FOLLOW AND ASSIST IF NEEDED. Offset Press Operator Helper: Dameon Cummins DCPIA - Discharge Planning Initial Assessment Updated by [id number]: Dameon Cummins on 06/08/19 6:25 pm * Is the patient Alert and Oriented? Yes * How many steps to enter\exit or inside your home? * PCP DR. LAWLER * [facility] [address] * Preadmission Environment Home with Family * ADLs Partial Dependent * Partial ADLs (Assistance needed) Medication Management * Equipment Walker Wheelchair * Other Equipment NO MEDICAL EQUIPMENT PROVIDER PREFERENCE * List name and contact numbers for known caregivers / representatives who currently or will assist patient after discharge: ANDIE MCNEAL, SPOUSE, * Verbal permission to speak to the caregivers and representatives has been obtained from the patient. N/A * Community resources currently utilized None * Please name any agencies selected above. NONE * Additional services required to return to the preadmission environment? No * Can the patient safely return to the preadmission environment? Yes * Has this patient been hospitalized within the prior 30 days at any hospital? No External Providers External Provider: [facility] Next Contact Date: Service Request Date: Service Type: Resolution: Reviewer: Comments: Coverage Notice Reviewer: [id number] Elizabeth Cummins Notice Issued Date-Time: 06/08/2019 13:45 Notice Type: IM Discharge Notice Notice Delivered To: Patient Relationship to Patient: Injection Molding Machine Setter Name: Delivery Method: HAND - Hand Delivered Alice Days: Prior Verbal Notification: Recipient Understood Notice: Yes Recipient Signature: Yes Med Rec Note Co-signed by Attending: Coverage Notice Comment: Reviewer: [id number] Elizabeth Cummins Notice Issued Date-Time: 06/08/2019 13:45 Notice Type: Patient Choice Letter Notice Delivered To: Patient Relationship to Patient: Injection Molding Machine Setter Name: Delivery Method: HAND - Hand Delivered Alice Days: Prior Verbal Notification: Recipient Understood Notice: Yes Recipient Signature: Yes Med Rec Note Co-signed by Attending: Coverage Notice Comment: DECLINED REHAB ACCEPTED HOME HEALTH, NO PROVIDER PREFERENCE Reviewer: [id number] Elizabeth Conway Notice Issued Date-Time: 06/09/2019 9:40 Notice Type: Medicare Outpatient Observation Notice Notice Delivered To: Patient Relationship to Patient: Injection Molding Machine Setter Name: Delivery Method: HAND - Hand Delivered Alice Days: Prior Verbal Notification: Recipient Understood Notice: Yes Recipient Signature: Yes Med Rec Note Co-signed by Attending: Coverage Notice Comment: ESCOBEDO SERVED, EXPLAINED, AND SIGNED BY PATIENT. THE ORIGINAL WAS PROVIDED TO THE PATIENT AND COPY PLACED ON CHART. Last DP export: 06/09/19 10:54 a Patient Name: BRITNEY MCNEAL Page [id number] at 1239 All edits/amendments must be made on the electronic document DICTATION DATE: 06/11/19 1239 SNAKER: JAYDON 06/11/19 1239 RPT#: [id number] DC DATE: STATUS: ADM IN [facility] [address] [place] [address] END OF REPORT
--- NOTE | 2019-06-11 12:46 | MORECARE ---
CASE MANAGEMENT DISCHARGE SUMMARY PATIENT: BRITNEY MCNEAL UNIT: [id number] ADM DATE: 06/10/19 AGE: 63 : 51 SEX: F ROOM/BED: D.2107 AUTHOR: KOMAL,DOC PHYSICIAN: REFERRING PHYSICIAN: ANT MEDINA MD DATE OF SERVICE: 06/11/19 Discharge Plan Patient Name: BRITNEY MCNEAL Facility: [facility]:[place] : 1955 Planned Disposition: Home with Home Health Anticipated Discharge Date: 06/08/19 Discharge Date: Expected LOS: -2 Initial Reviewer: [id number] Initial Review Date: 06/08/2019 Generated: 06/11/19 1:46 pm Comments DCP- Discharge Planning Updated by [id number]: Lisseth Jerez on 06/11/19 11:[address] Patient Name: BRITNEY MCNEAL Encounter No: [id number] : 1955 Primary Insurance: [employer] Anticipated DC Date: 06-08-2019 Planned Disposition: Home with Home Health External Planned Provider: : DCP follow-up note: Patient and family in agreement with discharge plan. PATIENT STATES SHE THINKS SHE USED [facility] BEFORE AND WOULD LIKE TO USE THEM AGAIN FOR HH. HH ORDER FAXED TO [facility] AND MSG LEFT WITH [facility]. No changes to plan. Case management will follow and assist as needed. IMM SIGNED. I INSTRUCTED PATIENT TO CALL [facility] THURSDAY IF SHE HAS NOT RECEIVED A CALL. Lisseth Jerez DCP- Discharge Planning Updated by [id number]: Amairani Conway on 06/09/19 9:[address] ESCOBEDO SERVED, EXPLAINED, AND SIGNED BY PATIENT. THE ORIGINAL WAS PROVIDED TO THE PATIENT AND COPY PLACED ON CHART. DCP- Discharge Planning Updated by [id number]: Dameon Cummins on 06/08/19 5:[address] Patient Name: BRITNEY MCNEAL Admission Status: ER Accout number: [id number] Admission Date: 06-07-2019 : 1955 Admission Diagnosis: Attending: ANT MEDINA Current LOS: 1 Anticipated DC Date: 06-08-2019 Planned Disposition: Home with Home Health Primary Insurance: [employer] PLANNED EXTERNAL PROVIDER: NO HOME HEALTH PROVIDER PREFERENCE Discharge Planning Comments: CM RECEIVED INPAITENT REHAB PRESCREENING ORDER. MET WITH PTAND SPOUSE IN ROOM TO DISCUSS DISCHARGE PLANNING AND NEEDS. BRITNEY MCNEAL provided verbal consent to discuss current and ongoing needs with/in the presence of: SPOUSE, JL. PT REPORTS LIVING AT HOME INDEPENDENTLY WITH HER SPOUSE AND SON WHO ASSIST WITH MEDIATION MANAGEMENT AND HER CARE NEEDED. PT HAS WALKER AND WHEELCHAIR WITH NO MEDICAL EQUIPMENT PROVIDER PREFERENCE. PT HAS NO OUTSIDE SERVICES ASSISTING IN THE HOME. CM DISCUSSED AVAILABILITY OF HOME HEALTH, REHAB SERVICES AND MEDICAL EQUIPMENT. PT AND SPOUSE DENIES NEED OF REHAB SERVICES, PT PLANS TO RETURN HOME WITH FAMILY AND WILL ACCEPT HOME HEALTH WITH NO PROVIDER PREFERENCE. PT REPORTS HER SPOUSE WILL PICK HER UP FOR DISCHARGE HOME. IMPORTANT MESSAGE FROM MEDICARE PROVIDED AND EXPLAINED. PT DECLINES REHAB; WILL ACCEPT HOME HEALTH. CM WILL ARRANGE WITH NO PROVIDER PREFERNECE WITH PHYSICIAN AGREEMENT AND HOME HEALTH ORDERS. PT PLANS TO DISCHARGE HOME WITH SPOUSE AND ADULT SON, FAMILY TO TRANSPORT HOME. CM TO FOLLOW AND ASSIST IF NEEDED. Plastic Outfitter: Dameon Cummins DCPIA - Discharge Planning Initial Assessment Updated by [id number]: Dameon Cummins on 06/08/19 6:25 pm * Is the patient Alert and Oriented? Yes * How many steps to enter\exit or inside your home? * PCP DR. LAWLER * [facility] * Preadmission Environment Home with Family * ADLs Partial Dependent * Partial ADLs (Assistance needed) Medication Management * Equipment Walker Wheelchair * Other Equipment NO MEDICAL EQUIPMENT PROVIDER PREFERENCE * List name and contact numbers for known caregivers / representatives who currently or will assist patient after discharge: ANDIE MCNEAL, SPOUSE, * Verbal permission to speak to the caregivers and representatives has been obtained from the patient. N/A * Community resources currently utilized None * Please name any agencies selected above. NONE * Additional services required to return to the preadmission environment? No * Can the patient safely return to the preadmission environment? Yes * Has this patient been hospitalized within the prior 30 days at any hospital? No Coverage Notice Reviewer: [id number] - Dameon Cummins Notice Issued Date-Time: 06/08/2019 13:45 Notice Type: IM Discharge Notice Notice Delivered To: Patient Relationship to Patient: Helicopter Crew Chief Name: Delivery Method: HAND - Hand Delivered Alice Days: Prior Verbal Notification: Recipient Understood Notice: Yes Recipient Signature: Yes Med Rec Note Co-signed by Attending: Coverage Notice Comment: Reviewer: [id number] - Dameon Cummins Notice Issued Date-Time: 06/08/2019 13:45 Notice Type: Patient Choice Letter Notice Delivered To: Patient Relationship to Patient: Helicopter Crew Chief Name: Delivery Method: HAND - Hand Delivered Alice Days: Prior Verbal Notification: Recipient Understood Notice: Yes Recipient Signature: Yes Med Rec Note Co-signed by Attending: Coverage Notice Comment: DECLINED REHAB ACCEPTED HOME HEALTH, NO PROVIDER PREFERENCE Reviewer: [id number] Elizabeth Conway Notice Issued Date-Time: 06/09/2019 9:40 Notice Type: Medicare Outpatient Observation Notice Notice Delivered To: Patient Relationship to Patient: Helicopter Crew Chief Name: Delivery Method: HAND - Hand Delivered Alice Days: Prior Verbal Notification: Recipient Understood Notice: Yes Recipient Signature: Yes Med Rec Note Co-signed by Attending: Coverage Notice Comment: ESCOBEDO SERVED, EXPLAINED, AND SIGNED BY PATIENT. THE ORIGINAL WAS PROVIDED TO THE PATIENT AND COPY PLACED ON CHART. Reviewer: [id number] Elizabeth Jerez Notice Issued Date-Time: 06/11/2019 12:41 Notice Type: IM Discharge Notice Notice Delivered To: Patient Relationship to Patient: Helicopter Crew Chief Name: Delivery Method: HAND - Hand Delivered Alice Days: Prior Verbal Notification: Recipient Understood Notice: Yes Recipient Signature: Yes Med Rec Note Co-signed by Attending: Coverage Notice Comment: Last DP export: 06/11/19 11:39 a Patient Name: BRITNEY MCNEAL Page [id number] at 1246 All edits/amendments must be made on the electronic document DICTATION DATE: 06/11/19 1246 TALEND ETL DEVELOPER: JAYDON 06/11/19 1246 RPT#: [id number] DC DATE: STATUS: ADM IN [facility] [address] [place] [address] END OF REPORT
--- NOTE | 2019-06-11 13:02 | NUR ---
PT ESCORTED OUT VIA WHEELCHAIR TO POV, DRIVING
--- NOTE | 2019-06-11 13:06 | MORECARE ---
CASE MANAGEMENT DISCHARGE SUMMARY PATIENT: BRITNEY MCNEAL UNIT: [id number] ADM DATE: 06/10/19 AGE: 63 : 51 SEX: F ROOM/BED: D.2105 AUTHOR: KOMAL,DOC PHYSICIAN: REFERRING PHYSICIAN: ANT MEDINA MD DATE OF SERVICE: 06/11/19 Discharge Plan Patient Name: BRITNEY MCNEAL Facility: [facility]:[place] : 1955 Planned Disposition: Home with Home Health Anticipated Discharge Date: 06/08/19 Discharge Date: 06/11/2019 Expected LOS: -2 Initial Reviewer: [id number] Initial Review Date: 06/08/2019 Generated: 06/11/19 2:06 pm Comments DCP- Discharge Planning Updated by [id number]: Lisseth Jerez on 06/11/19 11:[address] Patient Name: BRITNEY MCNEAL Encounter No: [id number] : 1955 Primary Insurance: [employer] MED[employer]ARE SOLUTIONS Anticipated DC Date: 06-08-2019 Planned Disposition: Home with Home Health External Planned Provider: : DCP follow-up note: Patient and family in agreement with discharge plan. PATIENT STATES SHE THINKS SHE USED [facility] BEFORE AND WOULD LIKE TO USE THEM AGAIN FOR HH. HH ORDER FAXED TO [facility] AND [facility] LEFT WITH [facility]. No changes to plan. Case management will follow and assist as needed. IMM SIGNED. I INSTRUCTED PATIENT TO CALL [facility] THURSDAY IF SHE HAS NOT RECEIVED A CALL. Lisseth Jerez DCP- Discharge Planning Updated by [id number]: Amairani Conway on 06/09/19 9:[address] ESCOBEDO SERVED, EXPLAINED, AND SIGNED BY PATIENT. THE ORIGINAL WAS PROVIDED TO THE PATIENT AND COPY PLACED ON CHART. DCP- Discharge Planning Updated by [email or web address]: Dameon Cummins on 06/08/19 5:[address] Patient Name: BRITNEY MCNEAL Admission Status: ER Accout number: [id number] Admission Date: 06-07-2019 : 1955 Admission Diagnosis: Attending: ANT MEDINA Current LOS: 1 Anticipated DC Date: 06-08-2019 Planned Disposition: Home with Home Health Primary Insurance: [employer] MEDICARE SOLUTIONS PLANNED EXTERNAL PROVIDER: NO HOME HEALTH PROVIDER PREFERENCE Discharge Planning Comments: CM RECEIVED INPAITENT REHAB PRESCREENING ORDER. MET WITH PTAND SPOUSE IN ROOM TO DISCUSS DISCHARGE PLANNING AND NEEDS. BRITNEY MCNEAL provided verbal consent to discuss current and ongoing needs with/in the presence of: SPOUSE, JL. PT REPORTS LIVING AT HOME INDEPENDENTLY WITH HER SPOUSE AND SON WHO ASSIST WITH MEDIATION MANAGEMENT AND HER CARE NEEDED. PT HAS WALKER AND WHEELCHAIR WITH NO MEDICAL EQUIPMENT PROVIDER PREFERENCE. PT HAS NO OUTSIDE SERVICES ASSISTING IN THE HOME. CM DISCUSSED AVAILABILITY OF HOME HEALTH, REHAB SERVICES AND MEDICAL EQUIPMENT. PT AND SPOUSE DENIES NEED OF REHAB SERVICES, PT PLANS TO RETURN HOME WITH FAMILY AND WILL ACCEPT HOME HEALTH WITH NO PROVIDER PREFERENCE. PT REPORTS HER SPOUSE WILL PICK HER UP FOR DISCHARGE HOME. IMPORTANT MESSAGE FROM MEDICARE PROVIDED AND EXPLAINED. PT DECLINES REHAB; WILL ACCEPT HOME HEALTH. CM WILL ARRANGE WITH NO PROVIDER PREFERNECE WITH PHYSICIAN AGREEMENT AND HOME HEALTH ORDERS. PT PLANS TO DISCHARGE HOME WITH SPOUSE AND ADULT SON, FAMILY TO TRANSPORT HOME. CM TO FOLLOW AND ASSIST IF NEEDED. System Development Manager: Dameon Cummins DCPIA - Discharge Planning Initial Assessment Updated by [id number]: Dameon Cummins on 06/08/19 6:25 pm * Is the patient Alert and Oriented? Yes * How many steps to enter\exit or inside your home? * PCP DR. LAWLER * Pharmacy [facility] [address] * Preadmission Environment Home with Family * ADLs Partial Dependent * Partial ADLs (Assistance needed) Medication Management * Equipment Walker Wheelchair * Other Equipment NO MEDICAL EQUIPMENT PROVIDER PREFERENCE * List name and contact numbers for known caregivers / representatives who currently or will assist patient after discharge: ANDIE MCNEAL, SPOUSE, * Verbal permission to speak to the caregivers and representatives has been obtained from the patient. N/A * Community resources currently utilized None * Please name any agencies selected above. NONE * Additional services required to return to the preadmission environment? No * Can the patient safely return to the preadmission environment? Yes * Has this patient been hospitalized within the prior 30 days at any hospital? No Coverage Notice Reviewer: [id number] - Dameon Cummins Notice Issued Date-Time: 06/08/2019 13:45 Notice Type: IM Discharge Notice Notice Delivered To: Patient Relationship to Patient: Capacity Analyst Name: Delivery Method: HAND - Hand Delivered Alice Days: Prior Verbal Notification: Recipient Understood Notice: Yes Recipient Signature: Yes Med Rec Note Co-signed by Attending: Coverage Notice Comment: Reviewer: [id number] - Dameon Cummins Notice Issued Date-Time: 06/08/2019 13:45 Notice Type: Patient Choice Letter Notice Delivered To: Patient Relationship to Patient: Capacity Analyst Name: Delivery Method: HAND - Hand Delivered Alice Days: Prior Verbal Notification: Recipient Understood Notice: Yes Recipient Signature: Yes Med Rec Note Co-signed by Attending: Coverage Notice Comment: DECLINED REHAB ACCEPTED HOME HEALTH, NO PROVIDER PREFERENCE Reviewer: [id number] Elizabeth Conway Notice Issued Date-Time: 06/09/2019 9:40 Notice Type: Medicare Outpatient Observation Notice Notice Delivered To: Patient Relationship to Patient: Capacity Analyst Name: Delivery Method: HAND - Hand Delivered Alice Days: Prior Verbal Notification: Recipient Understood Notice: Yes Recipient Signature: Yes Med Rec Note Co-signed by Attending: Coverage Notice Comment: ESCOBEDO SERVED, EXPLAINED, AND SIGNED BY PATIENT. THE ORIGINAL WAS PROVIDED TO THE PATIENT AND COPY PLACED ON CHART. Reviewer: [id number] Elizabeth Jerez Notice Issued Date-Time: 06/11/2019 12:41 Notice Type: IM Discharge Notice Notice Delivered To: Patient Relationship to Patient: Capacity Analyst Name: Delivery Method: HAND - Hand Delivered Alice Days: Prior Verbal Notification: Recipient Understood Notice: Yes Recipient Signature: Yes Med Rec Note Co-signed by Attending: Coverage Notice Comment: Last DP export: 06/11/19 11:46 a Patient Name: BRITNEY MCNEAL Page [phone] at 1306 All edits/amendments must be made on the electronic document DICTATION DATE: 06/11/19 1306 PRODUCT ENGINEER: JAYDON 06/11/19 1306 RPT#: [id number] DC DATE:06/11/19 STATUS: DIS IN [facility] [address] [place] [address] END OF REPORT
--- NOTE | 2019-06-11 15:43 | MORECARE ---
CASE MANAGEMENT DISCHARGE SUMMARY PATIENT: BRITNEY MCNEAL UNIT: [id number] ADM DATE: 06/10/19 AGE: 63 : 51 SEX: F ROOM/BED: D.2030 AUTHOR: KOMAL,DOC PHYSICIAN: REFERRING PHYSICIAN: ANT MEDINA MD DATE OF SERVICE: 06/11/19 Discharge Plan Patient Name: BRITNEY MCNEAL Facility: [facility]:[place] : 1955 Planned Disposition: Home with Home Health Anticipated Discharge Date: 06/08/19 Discharge Date: 06/11/2019 Expected LOS: -2 Initial Reviewer: [id number] Initial Review Date: 06/08/2019 Generated: 06/11/19 4:42 pm Comments DCP- Discharge Planning Updated by [id number]: Lisseth Jerez on 06/11/19 11:[address] Patient Name: BRITNEY MCNEAL Encounter No: [id number] : 1955 Primary Insurance: [employer] MED[employer] SOLUTIONS Anticipated DC Date: 06-08-2019 Planned Disposition: Home with Home Health External Planned Provider: : DCP follow-up note: Patient and family in agreement with discharge plan. PATIENT STATES SHE THINKS SHE USED [facility] BEFORE AND WOULD LIKE TO USE THEM AGAIN FOR HH. HH ORDER FAXED TO [facility] AND [facility]G LEFT WITH [facility]. No changes to plan. Case management will follow and assist as needed. IMM SIGNED. I INSTRUCTED PATIENT TO CALL [place] THURSDAY IF SHE HAS NOT RECEIVED A CALL. Lisseth Jerez DCP- Discharge Planning Updated by [id number]: Amairani Conway on 06/09/19 9:[address] ESCOBEDO SERVED, EXPLAINED, AND SIGNED BY PATIENT. THE ORIGINAL WAS PROVIDED TO THE PATIENT AND COPY PLACED ON CHART. DCP- Discharge Planning Updated by [id number]: Dameon Cummins on 06/08/19 5:[address] Patient Name: BRITNEY MCNEAL Admission Status: ER Accout number: [id number] Admission Date: 06-07-2019 : 1955 Admission Diagnosis: Attending: ANT MEDINA Current LOS: 1 Anticipated DC Date: 06-08-2019 Planned Disposition: Home with Home Health Primary Insurance: [employer] MEDICARE SOLUTIONS PLANNED EXTERNAL PROVIDER: NO HOME HEALTH PROVIDER PREFERENCE Discharge Planning Comments: CM RECEIVED INPAITENT REHAB PRESCREENING ORDER. MET WITH PTAND SPOUSE IN ROOM TO DISCUSS DISCHARGE PLANNING AND NEEDS. BRITNEY MCNEAL provided verbal consent to discuss current and ongoing needs with/in the presence of: SPOUSE, JL. PT REPORTS LIVING AT HOME INDEPENDENTLY WITH HER SPOUSE AND SON WHO ASSIST WITH MEDIATION MANAGEMENT AND HER CARE NEEDED. PT HAS WALKER AND WHEELCHAIR WITH NO MEDICAL EQUIPMENT PROVIDER PREFERENCE. PT HAS NO OUTSIDE SERVICES ASSISTING IN THE HOME. CM DISCUSSED AVAILABILITY OF HOME HEALTH, REHAB SERVICES AND MEDICAL EQUIPMENT. PT AND SPOUSE DENIES NEED OF REHAB SERVICES, PT PLANS TO RETURN HOME WITH FAMILY AND WILL ACCEPT HOME HEALTH WITH NO PROVIDER PREFERENCE. PT REPORTS HER SPOUSE WILL PICK HER UP FOR DISCHARGE HOME. IMPORTANT MESSAGE FROM MEDICARE PROVIDED AND EXPLAINED. PT DECLINES REHAB; WILL ACCEPT HOME HEALTH. CM WILL ARRANGE WITH NO PROVIDER PREFERNECE WITH PHYSICIAN AGREEMENT AND HOME HEALTH ORDERS. PT PLANS TO DISCHARGE HOME WITH SPOUSE AND ADULT SON, FAMILY TO TRANSPORT HOME. CM TO FOLLOW AND ASSIST IF NEEDED. Seed Service Advisor: Dameon Cummins DCPIA - Discharge Planning Initial Assessment Updated by [id number]: Dameon Cummins on 06/08/19 6:25 pm * Is the patient Alert and Oriented? Yes * How many steps to enter\exit or inside your home? * PCP DR. LAWLER * [facility] [address] * Preadmission Environment Home with Family * ADLs Partial Dependent * Partial ADLs (Assistance needed) Medication Management * Equipment Walker Wheelchair * Other Equipment NO MEDICAL EQUIPMENT PROVIDER PREFERENCE * List name and contact numbers for known caregivers / representatives who currently or will assist patient after discharge: ANDIE MCNEAL, SPOUSE, * Verbal permission to speak to the caregivers and representatives has been obtained from the patient. N/A * Community resources currently utilized None * Please name any agencies selected above. NONE * Additional services required to return to the preadmission environment? No * Can the patient safely return to the preadmission environment? Yes * Has this patient been hospitalized within the prior 30 days at any hospital? No Coverage Notice Reviewer: [id number] - Dameon Cummins Notice Issued Date-Time: 06/08/2019 13:45 Notice Type: IM Discharge Notice Notice Delivered To: Patient Relationship to Patient: [employer] Division Manager Name: Delivery Method: HAND - Hand Delivered Alice Days: Prior Verbal Notification: Recipient Understood Notice: Yes Recipient Signature: Yes Med Rec Note Co-signed by Attending: Coverage Notice Comment: Reviewer: [id number] - Dameon Cummins Notice Issued Date-Time: 06/08/2019 13:45 Notice Type: Patient Choice Letter Notice Delivered To: Patient Relationship to Patient: [employer] Division Manager Name: Delivery Method: HAND - Hand Delivered Alice Days: Prior Verbal Notification: Recipient Understood Notice: Yes Recipient Signature: Yes Med Rec Note Co-signed by Attending: Coverage Notice Comment: DECLINED REHAB ACCEPTED HOME HEALTH, NO PROVIDER PREFERENCE Reviewer: [id number] Elizabeth Conway Notice Issued Date-Time: 06/09/2019 9:40 Notice Type: Medicare Outpatient Observation Notice Notice Delivered To: Patient Relationship to Patient: [employer] Division Manager Name: Delivery Method: HAND - Hand Delivered Alice Days: Prior Verbal Notification: Recipient Understood Notice: Yes Recipient Signature: Yes Med Rec Note Co-signed by Attending: Coverage Notice Comment: ESCOBEDO SERVED, EXPLAINED, AND SIGNED BY PATIENT. THE ORIGINAL WAS PROVIDED TO THE PATIENT AND COPY PLACED ON CHART. Reviewer: [id number] Elizabeth Jerez Notice Issued Date-Time: 06/11/2019 12:41 Notice Type: IM Discharge Notice Notice Delivered To: Patient Relationship to Patient: [employer] Division Manager Name: Delivery Method: HAND - Hand Delivered Alice Days: Prior Verbal Notification: Recipient Understood Notice: Yes Recipient Signature: Yes Med Rec Note Co-signed by Attending: Coverage Notice Comment: Last DP export: 06/11/19 12:06 p Patient Name: BRITNEY MCNEAL Page [phone] at 1543 All edits/amendments must be made on the electronic document DICTATION DATE: 06/11/191541 HUMID SYSTEM OPERATOR: JAYDON 06/11/19 154 RPT#: [id number] DC DATE:06/11/19 STATUS: DIS IN [facility] [address] [place] [address] END OF REPORT
== END 2019-06-11 13:03 | disposition home or self-care (01) | DRG 810 ==
LOC: D.ER 14:28 → D.M2 19:44 → OBSVTIME 20:44 → D.M2 06-09 14:53 → D.SDCHOLD 06-09 14:53 → D.M2 06-10 16:04
PROVIDERS: Family Medicine; ADMIT Internal Medicine Nephrology; ATTEND Internal Medicine Nephrology
DX: D61.818 Other pancytopenia (principal); D72.819 Decreased white blood cell count, unspecified; E86.0 Dehydration; I10 Essential (primary) hypertension; E03.9 Hypothyroidism, unspecified; K21.9 Gastro-esophageal reflux disease without esophagitis; G40.909 Epilepsy, unspecified, not intractable, without status epilepticus; R62.7 Adult failure to thrive; Z68.23 Body mass index [BMI] 23.0-23.9, adult

== ENCOUNTER 2019-07-05 14:23 | Observation (INO) | payer MEDICARE, MEDICAID ==
[~2019-07-05] VITALS: Ht 162.6 cm; Wt 62.6 kg
--- NOTE | ~2019-07-05 | EEG ---
PATIENT:BRITNEY MCNEAL MEDICAL RECORD: [id number] DATE OF : [birth year] LOCATION:D.223 D.MS ADMISSION DATE: 07/05/19 REFERRING PHYSICIAN: INTERPRETING PHYSICIAN: MYA XIAO MD DATE OF SERVICE: 07/07/2019 Room number is 2234. Ordered by Dr. Xiao. CASE HISTORY: A 63-year-old female with known post-brain tumor resection, seizure disorder. Tumor resection was in left temporal region with CT of head demonstrating left temporal craniotomy. Seizure medications listed include Depakote, Keppra, Tegretol, and Topamax. The patient was admitted with reported single observed seizure in grocery store. PROCEDURE: EEG done as a routine bedside portable recording using the standard 10-20 international electrode system, 16-channel was used with 17 EKG. Photic stimulation was done as activation procedures. DESCRIPTION: EEG opens with the patient awake with the record displaying diffuse background slowing much more prominent on the left hemisphere, observed was left central parietal and temporal theta slowing intermixed with delta slowing most prominent in the temporal region. No rhythmic slowing was seen. Occasional to frequent bilateral independent single sharp waves were seen primarily in the left hemisphere. No distinct epileptiform change such as spike, polyspike, or spike in wave was seen. Photic stimulation yielded a spell of diffuse shaking observed by inventory technician beginning at 9 Hz, there was prominent EMG motor artifact during the spell of diffuse shaking obscuring the background significantly, possibly intermixed might have been spike in wave and polyspike, but again the degree of obscuration of background made observation quite difficult. Observed during this time was another change of emergence of 4 Hz delta in the right hemisphere along with the possible spike and wave and polyspike in left hemisphere. Of interest is the "shaking all over" persisted through 15 Hz stimulation and then photic stimulation was discontinued and there was immediate return of background slowing described above without expected more profound background slowing was suspect in the postictal circumstance. IMPRESSION: Moderately abnormal EEG with diffuse slowing most prominently in the left hemisphere consistent with the prior history of left tumor resection. Observed also was possible activation of seizure. Otherwise, no active seizure focus was found in this recording. TRANSINT:[id number] Voice Confirmation ID: [id number] DOCUMENT ID: [id number] ELECTROENCEPHALOGRAM REPORT [id number] BRITNEY MCNEAL MYA XIAO MD CC: [id number] DICTATION DATE: 07/07/19 1719 CONSUMER SCIENCE TEACHER: 07/07/192108 DIS IN 07/07/19 [place] [id number] [place] [id number]
[2019-07-05 15:00] VITALS: BP 116/70
[2019-07-05 15:19] LABS: BASOPHILS 0.3 % (0-2); EOSINOPHILS 1.1 % (0-7); HEMATOCRIT 37.6 % (36.0-48.0); HEMOGLOBIN 11.9 g/dL (12-16); IMMATURE GRANULOCYTES 0.3 % (0-5); LYMPHOCYTES 18.2 % (15-50); MCH 30.7 pg (26.0-34.0); MCHC 31.6 g/dL (31.0-37.0); MCV 97.2 fL (80.0-100.0); MEAN PLATELET VOLUME 9.1 fL (7.4-10.4); MONOCYTES 14.7 % (2-11); NEUTROPHILS 65.4 % (40-80); RBC 3.87 10x6/uL (4.00-5.40); RDW 13.3 % (11.5-14.5); WBC 3.7 10x3/uL (4.8-10.8)
[2019-07-05 15:31] LABS: APTT 29.5 SECONDS (22.8-39.4); INR 1.11 (0.85-1.17); PROTIME 14.2 SECONDS (11.6-15.0)
[2019-07-05 15:35] LABS: BILIRUBIN NEGATIVE (NEGATIVE); GLUCOSE NEGATIVE (NEGATIVE); KETONE NEGATIVE (NEGATIVE); NITRITE NEGATIVE (NEGATIVE); SPECIFIC GRAVITY 1.015 (1.005-1.020); UROBILINOGEN NORMAL (NORMAL)
[2019-07-05 15:35] LABS: PLATELET COUNT 160 10x3/uL (130-400)
[2019-07-05 15:42] LABS: UDS - AMPHET NEGATIVE QUAL (NEGATIVE); UDS - BARB POSITIVE QUAL (NEGATIVE); UDS - BENZO NEGATIVE QUAL (NEGATIVE); UDS - COCAINE NEGATIVE QUAL (NEGATIVE); UDS - OPIATE POSITIVE QUAL (NEGATIVE); UDS - PCP NEGATIVE QUAL (NEGATIVE); UDS - THC NEGATIVE QUAL (NEGATIVE)
[2019-07-05 16:00] VITALS: BP 123/75
[2019-07-05 16:38] LABS: CALC OSMOLALITY 269 mosm/kg (275-300); CARBON DIOXIDE 20.9 mmol/L (21.0-32.0); CHLORIDE - SERUM 103 mmol/L (98-107); CREATININE - SERUM 0.8 mg/dL (0.6-1.3); GLUCOSE 99 mg/dL (74-106); POTASSIUM - SERUM 3.8 mmol/L (3.5-5.1); SODIUM 134 mmol/L (136-145); UREA NITROGEN 17 mg/dL (7-18); eGFR NON AFRICAN AMERICAN 76 mL/min (90-120)
[2019-07-05 16:53] LABS: ALBUMIN 2.4 g/dL (3.4-5.0); ALKALINE PHOSPHATASE 193 U/L (30-120); ALT (SGPT) 42 U/L (10-68); CKMB 0.7 U/L (0.0-3.6); CREATINE KINASE 52 UL (21-215); MAGNESIUM - SERUM 1.9 mg/dL (1.8-2.4); PROTEIN - SERUM 5.6 g/dL (6.4-8.2); TROPONIN-I < 0.017 ng/mL (0.000-0.060)
[2019-07-05 21:55] VITALS: BP 116/62
[2019-07-06] VITALS (7 sets, daily range): BP systolic 97–156; BP diastolic 50–78; Ht 162.6 cm; Wt 62.6 kg
--- NOTE | 2019-07-06 02:19 | NUR ---
2000)NEW ADMIT REC'D CHGE OF SHIFT WALKING ROUNDSON ENTERING ROOM VERY AGGITATED. STATES I'VE BEEN WAITING AN HOUR TO GO TO BATHROOM.I'LL CALL MY TO BRING MY WHEELCHAIR UP HERE AND HE'LL HELP ME TO BATHROOM..AND WON'T HAVE TO WAIT.INCONTINENT OF URINE,[facility] GIVEN ADULT BRIEF REAPPLIED PER PT. REQUEST.VAIBHAV JEMMA IN PLACE ENCOURAGED TO CALL FOR ASSIST NOT TO GET UP WITHOUT ASSIST VOICES UNDERSTANDING.ALLYSON ROGER APN HERE.NEW ORDERS REC'D.
[2019-07-06 05:28] LABS: HEMATOCRIT 33.2 % (36.0-48.0); HEMOGLOBIN 10.5 g/dL (12-16); MCH 29.7 pg (26.0-34.0); MCHC 31.6 g/dL (31.0-37.0); MEAN PLATELET VOLUME 9.1 fL (7.4-10.4); PLATELET COUNT 176 10x3/uL (130-400); RBC 3.53 10x6/uL (4.00-5.40); RDW 13.3 % (11.5-14.5)
[2019-07-06 05:34] LABS: MCV 94.1 fL (80.0-100.0); WBC 2.5 10x3/uL (4.8-10.8)
[2019-07-06 05:55] LABS: ALBUMIN 2.2 g/dL (3.4-5.0); ALKALINE PHOSPHATASE 169 U/L (30-120); BILIRUBIN - TOTAL 0.24 mg/dL (0.2-1.3); CALC OSMOLALITY 265 mosm/kg (275-300); CALCIUM 7.7 mg/dL (8.5-10.1); CARBON DIOXIDE 24.3 mmol/L (21.0-32.0); CHLORIDE - SERUM 103 mmol/L (98-107); CKMB 0.3 U/L (0.0-3.6); CREATINE KINASE 39 UL (21-215); CREATININE - SERUM 0.8 mg/dL (0.6-1.3); GLUCOSE 90 mg/dL (74-106); MAGNESIUM - SERUM 1.9 mg/dL (1.8-2.4); PHOSPHOROUS 3.5 mg/dL (2.5-4.9); POTASSIUM - SERUM 3.5 mmol/L (3.5-5.1); PROTEIN - SERUM 5.3 g/dL (6.4-8.2); SODIUM 133 mmol/L (136-145); THYROID STIMULATING HORMONE 2.72 uIU/mL (0.36-3.74); TROPONIN-I < 0.017 ng/mL (0.000-0.060); UREA NITROGEN 13 mg/dL (7-18); VALPROIC ACID (DEPAKOTE) 42.4 ug/mL (50.0-100.0); eGFR NON AFRICAN AMERICAN 76 mL/min (90-120)
[2019-07-06 05:56] LABS: ALT (SGPT) 30 U/L (10-68)
--- NOTE | 2019-07-06 07:00 | NUR ---
RECEIVED PT FROM MEDIA MARKETING SPECIALIST. UPON ENTERING ROOM PT IS SUPINE IN BE WITH EYES CLOSED. BREATHING EVEN AND UNLABORED NO S/S OF DITRESS NOTED AT THIS TIME. LEFT WRIST IV WITH NS @ 50. PT IS ON ROOM AIR. COMPLAING OF RIGHT HIP PAIN AFTER FALLING IN [employer] STORE. PT HAS TELEMETRY. SCD'S FOR DVT. WILL CONTINUE TO MONITOR.
[2019-07-06 07:31] LABS: EOSINOPHILS 2 % (0-7); LYMPHOCYTES 30 % (15-50); MONOCYTES 12 % (2-11); NEUTROPHILS 56 % (40-80)
[2019-07-06 07:32] LABS: PLATELET ESTIMATE NORMAL
--- NOTE | 2019-07-06 07:35 | NUR ---
PT PRESSED CALL LIGHT. UPON ENTERING PT IS SUPINE IN BED. ALERT AND ORIENTED. PER REPORT PT HAS TROUBLE FINDING WORDS FROM TIME TO TIME, IS ABLE TO COMMUNICATE EFFECTIVELY. PT REQUESTED HELP GETTING ON BED ANTONIO. I CLEANED PT UP AFTERWARDS AND PLACED NO ANNITA PAD UNDER PT. ASESSMENT PERFORMED AT THIS TIME. DENIES ANY NEEDS. BED IN LOWEST POSITION, BED RAILS X2, CALL LIGHT WITHIN REACH. WILL CONTINUE TO MONITOR.
--- NOTE | 2019-07-06 09:49 | NUR ---
ADMINISTERED MORNING MEDICATION AT THIS TIME. NO DIFFICULTY SWALLOWING. AIDE IN ROOM TO CHANGE LINENS. PT IS RESTING COMFORTABLY. DENIES ANY NEEDS. WILL CONTINUE TO MONITOR.
--- NOTE | 2019-07-06 11:38 | NUR ---
PT RESTING IN BED SUPINE. SPOKE ON PHONE WITH DAUGHTER. PT REQUESTS SOMETHING STRONGER FOR HIP/BACK PAIN THAN TYLENOL. WILL CONTACT ATTENDING. DENIES ANY OTHER NEEDS AT THIS TIME. WILL CONTINUE TO MONITOR.
--- NOTE | 2019-07-06 13:05 | NUR ---
I have reviewed this patient and I concur with the Shift Assessment completed by the Licensed Practical Nurse today this shift.
--- NOTE | 2019-07-06 13:55 | NUR ---
GAVE MEDICATION, NO DIFFICULTY. HELPED PT ON AND OFF OF BED ANTONIO. DENIES ANY NEEDS. WILL CONTINUE TO MONITOR.
--- NOTE | 2019-07-06 15:48 | NUR ---
PT RESTING COMFORTABLY IN BED. NO S/S OF DISTRESS NOTED. SOLDERER DIPPER REPORTED DIARRHEA. PT REQUESTS IMMODIUM, STATES SHE TAKES IT DAILY. WILL SPEAK WITH PHYSICIAN. DENIES ANY OTHER NEEDS. WILL CONTINUE TO MONITOR.
--- NOTE | 2019-07-06 16:08 | NUR ---
SPOKE WITH DR. MEDINA, GOT PT IMMODIUM. WAS UNABLE TO ASK ABOUT STANDING ORTHOSTATIC PRESSURES.
[2019-07-07 01:49] VITALS: BP 98/59
--- NOTE | 2019-07-07 05:31 | NUR ---
I have reviewed this patient and I concur with the Shift Assessment completed by the Licensed Practical Nurse today this shift.
[2019-07-07 05:51] LABS: CALC OSMOLALITY 277 mosm/kg (275-300); CALCIUM 7.6 mg/dL (8.5-10.1); CARBON DIOXIDE 25.5 mmol/L (21.0-32.0); CHLORIDE - SERUM 107 mmol/L (98-107); CREATININE - SERUM 0.8 mg/dL (0.6-1.3); GLUCOSE 82 mg/dL (74-106); PHOSPHOROUS 3.5 mg/dL (2.5-4.9); POTASSIUM - SERUM 3.6 mmol/L (3.5-5.1); SODIUM 139 mmol/L (136-145); UREA NITROGEN 15 mg/dL (7-18); eGFR NON AFRICAN AMERICAN 76 mL/min (90-120)
[2019-07-07 06:01] VITALS: BP 118/64
[2019-07-07 06:21] LABS: BASOPHILS 0.7 % (0-2); HEMATOCRIT 32.9 % (36.0-48.0); HEMOGLOBIN 10.5 g/dL (12-16); IMMATURE GRANULOCYTES 0.3 % (0-5); LYMPHOCYTES 46.7 % (15-50); MCH 30.3 pg (26.0-34.0); MCHC 31.9 g/dL (31.0-37.0); MCV 95.1 fL (80.0-100.0); MONOCYTES 11.8 % (2-11); NEUTROPHILS 38.5 % (40-80); PLATELET COUNT 163 10x3/uL (130-400); RBC 3.46 10x6/uL (4.00-5.40); RDW 13.2 % (11.5-14.5)
--- NOTE | 2019-07-07 06:55 | NUR ---
CONFUSED, ALERT AND ORIENTED X2. RESTING IN BED WITH EYES OPEN. NO C/O PAIN. NO S/S OF ACUTE DISTRESS NOTED. VAIBHAV ALARM ON. NPO AFTER MN D/T ABD ULTRASOUND. IV LEFT WRIST, NS INFUSING @ 50ML/HR. SITE PATENT WITHOUT REDNESS OR SWELLING. ON TELEMETRY 58 SB. ON ELECTROLYTE PROTOCOL. INCONTINENT AT TIMES. DENIES ANY NEEDS AT THIS TIME. CALL LIGHT IN REACH. WILL CONTINUE TO MONITOR.
[2019-07-07 09:18] LABS: % SATURATION 34 % (15-55); IRON 60 ug/dl (35-150); TOTAL IRON BIND CAPACITY 172 ug/dl (260-445); UNSAT IRON BIND CAPACITY 112 ug/dl (150-375)
[2019-07-07 09:37] VITALS: BP 115/64
[2019-07-07 10:12] VITALS: BP 115/64; BP 139/74
[2019-07-07 10:13] VITALS: BP 174/94
--- NOTE | 2019-07-07 11:24 | NUR ---
PT IV BECAME INFILTRATED, ATTEMPTED IV ACCESS X2 UNSUCESSFUL, ATTEMPTED BUT UNABLE TO FIND ANY POINT OF ACCESS, PLACED ORDER FOR VASCULAR ACCESS NURSE. CONTINUE WITH PLAN OF CARE
--- NOTE | 2019-07-07 13:12 | NUR ---
I have reviewed this patient and I concur with the Shift Assessment completed by the Licensed Practical Nurse today this shift.
[2019-07-07 13:42] VITALS: BP 161/91
--- NOTE | 2019-07-07 16:07 | MORECARE ---
CASE MANAGEMENT DISCHARGE SUMMARY PATIENT: BRITNEY MCNEAL UNIT: [id number] ADM DATE: 07/05/19 AGE: 63 : 51 SEX: F ROOM/BED: D.2234 AUTHOR: KOMAL,DOC PHYSICIAN: REFERRING PHYSICIAN: ANT MEDINA MD DATE OF SERVICE: 07/07/19 Discharge Plan Patient Name: BRITNEY MCNEAL Facility: [facility]:[place] : 1955 Planned Disposition: Home with Home Health Anticipated Discharge Date: Discharge Date: Expected LOS: Initial Reviewer: [id number] Initial Review Date: 07/07/2019 Generated: 07/07/19 5:07 pm DCP- Discharge Planning Updated by [id number]: Iman Curry on 07/06/19 3:[address] ESCOBEDO SERVED AND EXPLAINED, COPY GIVEN AND ONE PLACED IN CHART DCPIA - Discharge Planning Initial Assessment Updated by [id number]: Trudy Ladd on 07/07/19 4:04 pm * Is the patient Alert and Oriented? Yes * How many steps to enter\exit or inside your home? 2/0 * PCP Dr. Kenney * [facility] * Preadmission Environment Home with Family * ADLs Partial Dependent * Partial ADLs (Assistance needed) Ambulation Medication Management * Equipment Walker Wheelchair * List name and contact numbers for known caregivers / representatives who currently or will assist patient after discharge: ANDIE Mcneal [employer] [place] - [phone] * Verbal permission to speak to the caregivers and representatives has been obtained from the patient. Yes * Community resources currently utilized Home Health * Please name any agencies selected above. [facility] * Additional services required to return to the preadmission environment? No * Can the patient safely return to the preadmission environment? Yes * Has this patient been hospitalized within the prior 30 days at any hospital? Yes External Providers External Provider: [employer] Next Contact Date: Service Request Date: Service Type: Resolution: Reviewer: Comments: Coverage Notice Reviewer: [id number] - Iman Curry Notice Issued Date-Time: 07/06/2019 16:30 Notice Type: Medicare Outpatient Observation Notice Notice Delivered To: Patient Relationship to Patient: Formula Maker Name: Delivery Method: HAND - Hand Delivered Alice Days: Prior Verbal Notification: Recipient Understood Notice: Yes Recipient Signature: Yes Med Rec Note Co-signed by Attending: Coverage Notice Comment: GREGG SERVED AND EXPLAINED Patient Name: BRITNEY MCNEAL Page [phone] at 1607 All edits/amendments must be made on the electronic document DICTATION DATE: 07/07/191606 DIGITAL SALES PLANNER: JAYDON 07/07/191606 RPT#: [id number] DC DATE: STATUS: ADM IN [facility] [address] [place] [address] END OF REPORT
--- NOTE | 2019-07-07 16:24 | MORECARE ---
CASE MANAGEMENT DISCHARGE SUMMARY PATIENT: BRITNEY MCNEAL UNIT: [id number] ADM DATE: 07/05/19 AGE: 63 : 53 SEX: F ROOM/BED: D.2234 AUTHOR: KOMAL,DOC PHYSICIAN: REFERRING PHYSICIAN: ANT DE LA O MD DATE OF SERVICE: 07/07/19 Discharge Plan Patient Name: BRITNEY MCNEAL Facility: [facility]:[place] : 1955 Planned Disposition: Home with Home Health Anticipated Discharge Date: Discharge Date: Expected LOS: Initial Reviewer: [id number] Initial Review Date: 07/07/2019 Generated: 07/07/19 5:24 pm Comments DCP- Discharge Planning Updated by [email or web address]: Trudy Ladd on 07/07/19 3:[address] Patient Name: BRITNEY MCNEAL Admission Status: ER Accout number: [id number] Admission Date: 07-05-2019 : 1955 Admission Diagnosis: Attending: ANT DE LA O Current LOS: 2 Anticipated DC Date: Planned Disposition: Home with Home Health Primary Insurance: [facility] MEDICARE SOLUTIONS Discharge Planning Comments: CM met with patient to complete initial dc planning assessment. CM educated patient on the CM role and verbal consent given by patient to complete assessment. Patient lives at home with her spouse. At discharge patient plans to return and feels this is a safe discharge. CM discussed availability of home health, rehab services, and medical equipment. Patient denied known discharge needs at this time. States she would like to continue home health with [facility]. Patient is asking to go home tonight. I called Dr. Xiao, he has increased her dose of Depakote and would like her to go home on the increased dose and her home doses of Tegretol and Keppra when primary is ok with it. I have informed Dr. De La O. CM will continue to follow and will assist as needed with dc plans/needs. Full Stack Python Developer: Trudy Ladd DCP- Discharge Planning Updated by [email or web address]: Iman Curry on 07/06/19 3:[address] ESCOBEDO SERVED AND EXPLAINED, COPY GIVEN AND ONE PLACED IN CHART DCPIA - Discharge Planning Initial Assessment Updated by [email or web address]: Trudy Ladd on 07/07/19 4:04 pm * Is the patient Alert and Oriented? Yes * How many steps to enter\exit or inside your home? 2/0 * PCP Dr. Kenney * [facility] [address] * Preadmission Environment Home with Family * ADLs Partial Dependent * Partial ADLs (Assistance needed) Ambulation Medication Management * Equipment Walker Wheelchair * List name and contact numbers for known caregivers / representatives who currently or will assist patient after discharge: ANDIE Mcneal - [facility] - [phone] * Verbal permission to speak to the caregivers and representatives has been obtained from the patient. Yes * Community resources currently utilized Home Health * Please name any agencies selected above. [facility] * Additional services required to return to the preadmission environment? No * Can the patient safely return to the preadmission environment? Yes * Has this patient been hospitalized within the prior 30 days at any hospital? Yes Coverage Notice Reviewer: [id number] Elizabeth Curry Notice Issued Date-Time: 07/06/2019 16:30 Notice Type: Medicare Outpatient Observation Notice Notice Delivered To: Patient Relationship to Patient: Cable Cutter And Swager Name: Delivery Method: HAND - Hand Delivered Alice Days: Prior Verbal Notification: Recipient Understood Notice: Yes Recipient Signature: Yes Med Rec Note Co-signed by Attending: Coverage Notice Comment: ESCOBEDO SERVED AND EXPLAINED Reviewer: [id number] - Trudy Ladd Notice Issued Date-Time: 07/07/2019 16:17 Notice Type: Patient Choice Letter Notice Delivered To: Patient Relationship to Patient: Self Cable Cutter And Swager Name: Delivery Method: HAND - Hand Delivered Alice Days: Prior Verbal Notification: Recipient Understood Notice: Yes Recipient Signature: Yes Med Rec Note Co-signed by Attending: Coverage Notice Comment: RIC for [facility] Last DP export: 07/07/19 3:07 pm Patient Name: BRITNEY MCNEAL Page [id number] at 1624 All edits/amendments must be made on the electronic document DICTATION DATE: 07/07/191623 TRAUMA COORDINATOR: JAYDON 07/07/191623 RPT#: [id number] DC DATE: STATUS: ADM IN [facility] [address] [place] [address] END OF REPORT
--- NOTE | 2019-07-07 16:33 | MORECARE ---
CASE MANAGEMENT DISCHARGE SUMMARY PATIENT: BRITNEY MCNEAL UNIT: [id number] ADM DATE: 07/05/19 AGE: 63 : 51 SEX: F ROOM/BED: D.2234 AUTHOR: KOMAL,DOC PHYSICIAN: REFERRING PHYSICIAN: ANT DE LA O MD DATE OF SERVICE: 07/07/19 Discharge Plan Patient Name: BRITNEY MCNEAL Facility: [facility]:[place] : 1955 Planned Disposition: Home with Home Health Anticipated Discharge Date: Discharge Date: Expected LOS: Initial Reviewer: [email or web address] Initial Review Date: 07/07/2019 Generated: 07/07/19 5:33 pm Comments DCP- Discharge Planning Updated by [email or web address]: Trudy Ladd on 07/07/19 3:[address] Patient Name: BRITNEY MCNEAL Admission Status: ER Accout number: [id number] Admission Date: 07-05-2019 : 1955 Admission Diagnosis: Attending: ANT DE LA O Current LOS: 2 Anticipated DC Date: Planned Disposition: Home with Home Health Primary Insurance: [facility] MEDICARE SOLUTIONS Discharge Planning Comments: CM met with patient to complete initial dc planning assessment. CM educated patient on the CM role and verbal consent given by patient to complete assessment. Patient lives at home with her spouse. At discharge patient plans to return and feels this is a safe discharge. CM discussed availability of home health, rehab services, and medical equipment. Patient denied known discharge needs at this time. States she would like to continue home health with [facility]. Patient is asking to go home tonight. I called Dr. Xiao, he has increased her dose of Depakote and would like her to go home on the increased dose and her home doses of Tegretol and Keppra when primary is ok with it. I have informed Dr. De La O. CM will continue to follow and will assist as needed with dc plans/needs. Computational Theory Scientist: Trudy Ladd DCP- Discharge Planning Updated by [id number]: Iman Curry on 07/06/19 3:[address] ESCOBEDO SERVED AND EXPLAINED, COPY GIVEN AND ONE PLACED IN CHART DCPIA - Discharge Planning Initial Assessment Updated by [id number]: Trudy Ladd on 07/07/19 4:04 pm * Is the patient Alert and Oriented? Yes * How many steps to enter\exit or inside your home? 2/0 * PCP Dr. Kenney * [facility] [address] * Preadmission Environment Home with Family * ADLs Partial Dependent * Partial ADLs (Assistance needed) Ambulation Medication Management * Equipment Walker Wheelchair * List name and contact numbers for known caregivers / representatives who currently or will assist patient after discharge: ANDIE Mcneal - [facility] - [phone] * Verbal permission to speak to the caregivers and representatives has been obtained from the patient. Yes * Community resources currently utilized Home Health * Please name any agencies selected above. [facility] * Additional services required to return to the preadmission environment? No * Can the patient safely return to the preadmission environment? Yes * Has this patient been hospitalized within the prior 30 days at any hospital? Yes External Providers External Provider: [facility] Next Contact Date: Service Request Date: Service Type: Resolution: Reviewer: Comments: Coverage Notice Reviewer: [id number] - Iman Curry Notice Issued Date-Time: 07/06/2019 16:30 Notice Type: Medicare Outpatient Observation Notice Notice Delivered To: Patient Relationship to Patient: Emergency Department Manager Name: Delivery Method: HAND - Hand Delivered Alice Days: Prior Verbal Notification: Recipient Understood Notice: Yes Recipient Signature: Yes Med Rec Note Co-signed by Attending: Coverage Notice Comment: ESCOBEDO SERVED AND EXPLAINED Reviewer: [id number] - Trudy Ladd Notice Issued Date-Time: 07/07/2019 16:17 Notice Type: Patient Choice Letter Notice Delivered To: Patient Relationship to Patient: Self Emergency Department Manager Name: Delivery Method: HAND - Hand Delivered Alice Days: Prior Verbal Notification: Recipient Understood Notice: Yes Recipient Signature: Yes Med Rec Note Co-signed by Attending: Coverage Notice Comment: RIC for [facility] Last DP export: 07/07/19 3:24 pm Patient Name: BRITNEY MCNEAL Page [phone] at 1633 All edits/amendments must be made on the electronic document DICTATION DATE: 07/07/19 1633 CAR WORKER HELPER: JAYDON 07/07/19 1633 RPT#: [id number] DC DATE: STATUS: ADM IN [facility] [address] [place] [address] END OF REPORT
--- NOTE | 2019-07-07 17:30 | NUR ---
DISCHARGED PATIENT HOME WITH HOME HEALTH VIA WHEELCHAIR WITH FAMILY. DISCONTINUED IV, CATHETER TIP INTACT. WENT OVER DISCHARGE INSTRUCTIONS WITH PATIENT, VERBALIZED UNDERSTANDING. DENIES ANYTHING FURTHER.
--- NOTE | 2019-07-08 17:01 | MORECARE ---
CASE MANAGEMENT DISCHARGE SUMMARY PATIENT: BRITNEY MCNEAL UNIT: [id number] ADM DATE: 07/05/19 AGE: 63 : 51 SEX: F ROOM/BED: D.2234 AUTHOR: KOMAL,DOC PHYSICIAN: REFERRING PHYSICIAN: ANT DE LA O MD DATE OF SERVICE: 07/08/19 Discharge Plan Patient Name: BRITNEY MCNEAL Facility: [facility]:[place] : 1955 Planned Disposition: Home with Home Health Anticipated Discharge Date: Discharge Date: 07/07/2019 Expected LOS: 0 Initial Reviewer: [id number] Initial Review Date: 07/07/2019 Generated: 07/08/19 6:00 pm Comments DCP- Discharge Planning Updated by [email or web address]: Trudy Ladd on 07/07/19 3:[address] Patient Name: BRITNEY MCNEAL Admission Status: ER Accout number: [id number] Admission Date: 07-05-2019 : 1955 Admission Diagnosis: Attending: ANT DE LA O Current LOS: 2 Anticipated DC Date: Planned Disposition: Home with Home Health Primary Insurance: [facility] MEDICARE SOLUTIONS Discharge Planning Comments: CM met with patient to complete initial dc planning assessment. CM educated patient on the CM role and verbal consent given by patient to complete assessment. Patient lives at home with her spouse. At discharge patient plans to return and feels this is a safe discharge. CM discussed availability of home health, rehab services, and medical equipment. Patient denied known discharge needs at this time. States she would like to continue home health with [facility]. Patient is asking to go home tonight. I called Dr. Xiao, he has increased her dose of Depakote and would like her to go home on the increased dose and her home doses of Tegretol and Keppra when primary is ok with it. I have informed Dr. De La O. CM will continue to follow and will assist as needed with dc plans/needs. Housekeeper And Laundry Assistant: Trudy Ladd DCP- Discharge Planning Updated by [email or web address]: Iman Curry on 07/06/19 3:[address] ESCOBEDO SERVED AND EXPLAINED, COPY GIVEN AND ONE PLACED IN CHART DCPIA - Discharge Planning Initial Assessment Updated by [email or web address]: Trudy Ladd on 07/07/19 4:04 pm * Is the patient Alert and Oriented? Yes * How many steps to enter\exit or inside your home? 2/0 * PCP Dr. Kenney * [facility] [address] * Preadmission Environment Home with Family * ADLs Partial Dependent * Partial ADLs (Assistance needed) Ambulation Medication Management * Equipment Walker Wheelchair * List name and contact numbers for known caregivers / representatives who currently or will assist patient after discharge: ANDIE Mcneal [facility] - [phone] * Verbal permission to speak to the caregivers and representatives has been obtained from the patient. Yes * Community resources currently utilized Home Health * Please name any agencies selected above. [facility] * Additional services required to return to the preadmission environment? No * Can the patient safely return to the preadmission environment? Yes * Has this patient been hospitalized within the prior 30 days at any hospital? Yes Coverage Notice Reviewer: [id number] Elizabeth Curry Notice Issued Date-Time: 07/06/2019 16:30 Notice Type: Medicare Outpatient Observation Notice Notice Delivered To: Patient Relationship to Patient: Curriculum Assistant Principal Name: Delivery Method: HAND - Hand Delivered Alice Days: Prior Verbal Notification: Recipient Understood Notice: Yes Recipient Signature: Yes Med Rec Note Co-signed by Attending: Coverage Notice Comment: ESCOBEDO SERVED AND EXPLAINED Reviewer: [id number] - Trudy Ladd Notice Issued Date-Time: 07/07/2019 16:17 Notice Type: Patient Choice Letter Notice Delivered To: Patient Relationship to Patient: Self Curriculum Assistant Principal Name: Delivery Method: HAND - Hand Delivered Alice Days: Prior Verbal Notification: Recipient Understood Notice: Yes Recipient Signature: Yes Med Rec Note Co-signed by Attending: Coverage Notice Comment: RIC for [facility] Last DP export: 07/07/19 3:33 pm Patient Name: BRITNEY MCNEAL Page [phone] at 1701 All edits/amendments must be made on the electronic document DICTATION DATE: 07/08/191699 SHOT MAN: JAYDON 07/08/191699 RPT#: [id number] DC DATE:07/07/19 STATUS: DIS IN [place] [id number] [place] [address] END OF REPORT
== END 2019-07-07 17:50 | disposition home health service (06) ==
LOC: D.ER 14:23 → D.MS 17:58 → OBSVTIME 18:07 → D.MS 07-07 17:50
PROVIDERS: Family Medicine; ADMIT Internal Medicine Nephrology; ATTEND Internal Medicine Nephrology
DX: R55 Syncope and collapse (principal); I10 Essential (primary) hypertension; E03.9 Hypothyroidism, unspecified; K21.9 Gastro-esophageal reflux disease without esophagitis; E78.5 Hyperlipidemia, unspecified; D64.9 Anemia, unspecified; I50.22 Chronic systolic (congestive) heart failure; E87.1 Hypo-osmolality and hyponatremia; E44.0 Moderate protein-calorie malnutrition; G40.909 Epilepsy, unspecified, not intractable, without status epilepticus

== ENCOUNTER 2019-08-26 17:20 | Emergency (ER) | payer MEDICARE, MEDICAID ==
[~2019-08-26] VITALS: Ht 162.6 cm; Wt 56.4 kg
[2019-08-26 17:46] VITALS: Ht 162.6 cm; Wt 56.4 kg
[2019-08-26 20:00] VITALS: BP 112/77
== END 2019-08-26 20:00 | disposition home or self-care (01) ==
LOC: D.ER 17:20
DX: R51 Headache (principal); W19.XXXA Unspecified fall, initial encounter; Y93.9 Activity, unspecified; Y92.9 Unspecified place or not applicable; Z86.73 Personal history of transient ischemic attack (TIA), and cerebral infarction without residual deficits; I10 Essential (primary) hypertension; K21.9 Gastro-esophageal reflux disease without esophagitis

== ENCOUNTER 2019-09-09 11:07 | Inpatient (IN) | payer MEDICARE, MEDICAID ==
[~2019-09-09] VITALS: Ht 162.6 cm; Wt 56.8 kg
[2019-09-09] MEDS ORDERED: FUROSEMIDE20 MG PO (11:27)
--- NOTE | 2019-09-09 11:42 | NUR ---
pt transferred to ct at this time by w/c
[2019-09-09 13:13] LABS: BASOPHILS 0.3 % (0-2); EOSINOPHILS 0.5 % (0-7); HEMATOCRIT 38.6 % (36.0-48.0); HEMOGLOBIN 11.7 g/dL (12-16); IMMATURE GRANULOCYTES 0.5 % (0-5); LYMPHOCYTES 12.3 % (15-50); MCH 30.3 pg (26.0-34.0); MCHC 30.3 g/dL (31.0-37.0); MEAN PLATELET VOLUME 9.7 fL (7.4-10.4); NEUTROPHILS 74.4 % (40-80); PLATELET COUNT 163 10x3/uL (130-400); RBC 3.86 10x6/uL (4.00-5.40); RDW 13.7 % (11.5-14.5); WBC 3.8 10x3/uL (4.8-10.8)
[2019-09-09 13:20] LABS: ALBUMIN 2.9 g/dL (3.4-5.0); ANION GAP 15.7 mmol/L (8-16); BILIRUBIN - TOTAL 0.33 mg/dL (0.2-1.3); CALCIUM 8.3 mg/dL (8.5-10.1); CARBON DIOXIDE 24.5 mmol/L (21.0-32.0); CREATININE - SERUM 0.9 mg/dL (0.6-1.3); POTASSIUM - SERUM 4.2 mmol/L (3.5-5.1); PROTEIN - SERUM 6.4 g/dL (6.4-8.2)
[2019-09-09 13:21] LABS: APTT 34.4 SECONDS (22.8-39.4); INR 1.05 (0.85-1.17); PROTIME 13.6 SECONDS (11.6-15.0)
--- NOTE | 2019-09-09 13:25 | NUR ---
PT TRANSFERRED TO CT AT THIS TIME VIA STRETCHER.
[2019-09-09 13:26] VITALS: BP 156/83
[2019-09-09 14:10] LABS: NITRITE POSITIVE (NEGATIVE); SPECIFIC GRAVITY 1.025 (1.005-1.020)
[2019-09-09 14:11] LABS: BILIRUBIN NEGATIVE (NEGATIVE); GLUCOSE NEGATIVE (NEGATIVE); KETONE LARGE mg/dL (NEGATIVE); UROBILINOGEN NORMAL (NORMAL)
[2019-09-09 14:12] LABS: BACTERIA MANY /hpf (NEGATIVE); RED CELLS - URINE 0-5 /hpf (0-5); WHITE CELLS - URINE 25-50 /hpf (NEGATIVE)
[2019-09-09 14:26] VITALS: BP 160/96
--- NOTE | 2019-09-09 14:41 | NUR ---
REPORT CALLED TO [facility] AT THIS TIME.
--- NOTE | 2019-09-09 15:09 | NUR ---
RECEIVED PATIENT FROM ER. ALERT AND ORIENTED. NO C/O PAIN. NO S/S OF ACUTE DISTRESS NOTED. FAMILY AT BEDSIDE. IV TO RIGHT AC, NS INFUSING @ 75ML/HR. SITE PATENT WITHOUT REDNESS OR SWELLING. BRUISING TO LEFT SHOULDER AND RIGHT CHEST/BACK. HIGH FALL RISK, VAIBHAV ALARM ON. DENIES ANY NEEDS AT THIS TIME. CALL LIGHT IN REACH. WILL CONTINUE TO MONITOR.
[2019-09-09 15:25] VITALS: BP 131/84
[2019-09-09 15:52] LABS: VALPROIC ACID (DEPAKOTE) 61.1 ug/mL (50.0-100.0)
[2019-09-09 15:55] LABS: PHENYTOIN (DILANTIN) < 0.5 ug/mL (10.0-20.0)
[2019-09-09 16:00] LABS: UDS - AMPHET NEGATIVE QUAL (NEGATIVE); UDS - BARB NEGATIVE QUAL (NEGATIVE); UDS - BENZO NEGATIVE QUAL (NEGATIVE); UDS - COCAINE NEGATIVE QUAL (NEGATIVE); UDS - OPIATE NEGATIVE QUAL (NEGATIVE); UDS - PCP NEGATIVE QUAL (NEGATIVE); UDS - THC NEGATIVE QUAL (NEGATIVE)
[2019-09-09 16:10] VITALS: BP 131/84; Ht 162.6 cm; Wt 56.8 kg
[2019-09-09 20:00] VITALS: BP 93/63
[2019-09-10] VITALS (8 sets, daily range): BP systolic 83–176; BP diastolic 52–74
[2019-09-10 06:01] LABS: BASOPHILS 0.3 % (0-2); EOSINOPHILS 1.1 % (0-7); HEMATOCRIT 33.6 % (36.0-48.0); HEMOGLOBIN 10.8 g/dL (12-16); IMMATURE GRANULOCYTES 0.3 % (0-5); LYMPHOCYTES 16.4 % (15-50); MCH 31.5 pg (26.0-34.0); MCHC 32.1 g/dL (31.0-37.0); MEAN PLATELET VOLUME 9.7 fL (7.4-10.4); MONOCYTES 15.9 % (2-11); PLATELET COUNT 158 10x3/uL (130-400); RBC 3.43 10x6/uL (4.00-5.40); RDW 13.5 % (11.5-14.5); WBC 3.5 10x3/uL (4.8-10.8)
[2019-09-10 06:03] LABS: CALC OSMOLALITY 267 mosm/kg (275-300); CALCIUM 7.7 mg/dL (8.5-10.1); CARBON DIOXIDE 26.7 mmol/L (21.0-32.0); CHLORIDE - SERUM 101 mmol/L (98-107); CREATININE - SERUM 0.4 mg/dL (0.6-1.3); GLUCOSE 84 mg/dL (74-106); POTASSIUM - SERUM 4.8 mmol/L (3.5-5.1); PRO BNP 2280 pg/mL (0-125); SODIUM 133 mmol/L (136-145); UREA NITROGEN 20 mg/dL (7-18); eGFR NON AFRICAN AMERICAN > 90 mL/min (90-120)
--- NOTE | 2019-09-10 08:46 | NUR ---
ROUSES TO VERBAL STIMULATION BUT NOT TALKING AT THIS TIME. UNABLE TO ASSESS ORIENTATION. LUNGS ARE CLEAR BILATERALLY, NO COUGH NOTED. SKIN IS INTACT WITHOUT REDNESS WITH MULTIPLE AREAS OF BRUISING NOTED. TO LEFT SHOULDER AND LEGS. THERE IS A HARD KNOT ON THE BACK OF THE RIGHT LEG WITH SMALL BRUISE. WILL MONITOR. PURE WICK IN PLACE WITH CLEAR YELLOW URINE. SLING PLACED TO LEFT ARM PER ORDERS. NO NEEDS NOTED. DAUGHTER AT BEDSIDE.
--- NOTE | 2019-09-10 09:00 | NUR ---
TOOK AM MEDS WITHOUT DIFFICULTY. DAUGHTER AT BEDSIDE. DENIES NEEDS.
--- NOTE | 2019-09-10 11:13 | NUR ---
FAMILY AT DESK REQUESTED PAIN MEDS. PATIENT SAYS YES SHE IS HURTING. GIVEN 4MG MORPHINE SLOW IVP FOR PAIN LEVEL 7. WILL MONITOR.
--- NOTE | 2019-09-10 14:20 | NUR ---
OFF UNIT VIA BED FOR SURGERY.
--- NOTE | 2019-09-10 15:43 | NUR ---
PT ARRIVED WITH [facility]
--- NOTE | 2019-09-10 16:15 | NUR ---
RETURNED FROM SURGERY. A/O X3. NO C/O AT THIS TIME. AT BEDSIDE.
--- NOTE | 2019-09-10 18:54 | NUR ---
ATE PART OF FULL LIQUID SUPPER WITH 'S ASSISTANCE. VSS. NO NEEDS NOTED. NO CHANGES NOTED. DRESSING TO LEFT SHOULDER DRY AND INTACT.
--- NOTE | 2019-09-10 19:42 | NUR ---
PATIENT RESTING IN BED WITH NO S/S OF DISTRESS. FAMILY AT BEDSIDE. BROUGHT PATIENT AN ICEPACK PER HER REQUEST. PATIENT DENIES OTHER NEEDS AT THIS TIME. BED IN LOWEST POSITION AND CALL LIGHT WITHIN REACH. ENCOURAGED THE PATIENT TO CALL IF SHE HAS NEEDS. WILL CONTINUE TO MONITOR.
[2019-09-11] VITALS: BP 101/67
[2019-09-11 04:00] VITALS: BP 89/53
[2019-09-11 05:50] LABS: ALKALINE PHOSPHATASE 422 U/L (30-120); ALT (SGPT) 51 U/L (10-68); BILIRUBIN - TOTAL 0.26 mg/dL (0.2-1.3); CALC OSMOLALITY 270 mosm/kg (275-300); CALCIUM 7.1 mg/dL (8.5-10.1); CARBON DIOXIDE 23.8 mmol/L (21.0-32.0); CHLORIDE - SERUM 102 mmol/L (98-107); CREATININE - SERUM 0.8 mg/dL (0.6-1.3); GLUCOSE 115 mg/dL (74-106); POTASSIUM - SERUM 3.9 mmol/L (3.5-5.1); PROTEIN - SERUM 4.7 g/dL (6.4-8.2); SODIUM 134 mmol/L (136-145); UREA NITROGEN 17 mg/dL (7-18); eGFR NON AFRICAN AMERICAN 76 mL/min (90-120)
--- NOTE | 2019-09-11 07:46 | NUR ---
AWAKE AND ALERT. ORIENTED X3. NO C/O AT THIS TIME. LUNGS ARE CLEAR BUT DIMINISHED. NO COUGH NOTED. ENCOURAGED TO USE IS INSTRUCTED, DAUGHTER SAYS SHE IS. SKIN IS INTACT WITHOUT REDNESS EXCEPT INCISION TO LEFT SHOULDER WHICH HAS A DRY INTACT DRESSING IN PLACE. IV TO RIGHT FOREARM IS PATENT WITHOUT REDNESS AT INSERTION SITE. PURE WICK IS IN PLACE WITH DARK NILAM URINE. DENIES NEEDS.
[2019-09-11 08:29] VITALS: BP 104/60
--- NOTE | 2019-09-11 09:31 | CN ---
PATIENT NAME:BRITNEY MCNEAL MEDICAL RECORD: [id number] : [birth year] LOCATION:D.MS [address] ADMIT DATE: 09/09/19 ACCOUNT: [id number] CONSULTING PHYSICIAN: RYLAND DILL MD REFERRING PHYSICIAN: MAGDALENA MCNEIL MD DATE OF CONSULTATION: 09/10/2019 HISTORY OF PRESENT ILLNESS: A 63-year-old female with a cardiac history. She has had a history of a tricuspid and mitral valve rings back [address]arreal. Most recent echocardiographic study this spring showed normal functioning rings as well as good LV function. She had a normal coronary anatomy back in spring of last year, now scheduled for ORIF. We are asked to see her preoperatively PAST MEDICAL HISTORY: Includes; 1. 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 Villarreal. 2. Dyslipidemia. 3. Hypertension. 4. Seizure disorder. 5. Gastroesophageal reflux disease. ALLERGIES: PENICILLIN, CODEINE, SALICYLIC ACID, BENZOIC ACID. MEDICATIONS: Includes Lipitor 40 mg p.o. daily, Keppra 1 gram t.i.d., aspirin 81 every day, Depakote 500 t.i.d., Neurontin 100 t.i.d., Topamax 200 t.i.d., Tegretol 200 b.i.d., Requip gram bedtime, Lasix 20 every day, omeprazole 20 every day. SOCIAL HISTORY: Nonsmoker, nondrinker. Good social support. REVIEW OF SYSTEMS: The patient reports easy bruising but reports no swollen glands. The patient reports no fever, no night sweats, no significant weight gain, no significant weight loss. No significant exercise tolerance. The patient reports no dry eyes, no irritation, no vision change. Patient reports no difficulty hearing and no ear pain. Patient reports no frequent nose bleeds or nose and sinus problems. Patient reports on arm pain on exertion. No shortness of breath while lying down. No history of heart murmur. Patient reports no cough, no wheezing or coughing up blood. Patient reports no abdominal pain, no vomiting. Normal appetite. No diarrhea and not vomiting blood. No nausea and no constipation. Patient reports no incontinence. No difficulty urinating. No hematuria. No increased frequency. Patient reports no muscle aches. No weakness, no arthralgias, no back pain. No swelling of the extremities. Patient reports no abnormal mole, no jaundice, no rashes. Reports no loss of consciousness. No weakness and no numbness. No seizures, dizziness, or headaches. The patient reports no depression, no sleep disturbance, feeling safe in a relationship and no alcohol abuse. Patient reports on fatigue. Reports no runny nose or sinus pressure. No itching, no hives, and no frequent sneezing. PHYSICAL EXAMINATION: GENERAL: Pleasant, in no acute distress, appears stated age. VITAL SIGNS: Blood pressure 95/74, pulse 74 and regular. HEENT: Normocephalic, atraumatic. NECK: No JVD or bruit. HEART: Regular, II/ systolic ejection murmur. CONSULT REPORT [id number] BRITNEY MCNEAL LUNGS: Good air excursion. ABDOMEN: Soft, nontender. EXTREMITIES: Pulses 2+. There is no edema. IMPRESSION: No significant cardiovascular increased risk typically in lieu of a recent echocardiogram study as well as angiography in the past year. No contraindication of planned surgery. Thank you for the consultation. TRANSINT:[id number] Voice Confirmation ID: [id number] DOCUMENT ID: [id number] RYLAND DILL MD at 0931 CC: [id number] DICTATION DATE: 09/10/19912 HAND COMPOSITOR: 09/10/19 0944 ADM IN [place] [id number] [place] [id number]
[2019-09-11 09:40] LABS: BASOPHILS 0.2 % (0-2); EOSINOPHILS 0.7 % (0-7); HEMATOCRIT 30.6 % (36.0-48.0); HEMOGLOBIN 9.3 g/dL (12-16); IMMATURE GRANULOCYTES 0.2 % (0-5); LYMPHOCYTES 12.3 % (15-50); MCH 30.2 pg (26.0-34.0); MCHC 30.4 g/dL (31.0-37.0); MCV 99.4 fL (80.0-100.0); MEAN PLATELET VOLUME 9.4 fL (7.4-10.4); MONOCYTES 12.1 % (2-11); NEUTROPHILS 74.5 % (40-80); RBC 3.08 10x6/uL (4.00-5.40); RDW 13.4 % (11.5-14.5)
[2019-09-11 09:47] LABS: PLATELET COUNT 126 10x3/uL (130-400); WBC 5.7 10x3/uL (4.8-10.8)
--- NOTE | 2019-09-11 10:45 | NUR ---
UP TO CHIAR AT BEDSIDE PER PT.
--- NOTE | 2019-09-11 11:35 | NUR ---
ASSISTED BACK TO BED ONE PERSON MOD ASSIST. POSITIONED IN BED FOR COMFORT.
--- NOTE | 2019-09-11 12:07 | OP ---
PATIENT NAME: BRITNEY MCNEAL MEDICAL RECORD: [id number] :[birth year] LOCATION:D.MS [address] ADMISSION DATE:09/09/19 SURGEON: MYA MARSH MD DATE OF OPERATION: 09/10/2019 PREOPERATIVE DIAGNOSIS: Left proximal humerus fracture. POSTOPERATIVE DIAGNOSIS: Left proximal humerus fracture. PROCEDURE: Open reduction internal fixation of left proximal humerus fracture. SURGEON: Mya Marsh MD. RN RESOURCE NURSE: CLAUDE Pinto INTRAOPERATIVE COMPLICATIONS: None. SUMMARY OF PATHOLOGIC FINDINGS: The patient had basically base of the neck fracture of the left humerus that reduced nicely and was amenable to plate fixation. IMPLANTS USED: AxSOS 3 plate from [place]. OPERATIVE SUMMARY IN DETAIL: After obtaining the appropriate preoperative orthopedic surgery consent as well as anesthetic consultation, evaluation and clearance, the patient was brought to the operating room and placed on the operating table in supine position. After adequate general laryngeal mask airway was administered, the patient was placed in beach chair position. All pressure points were well padded. She was held firmly to the operating table using the vacuum pack suction system. Left upper extremity and shoulder were then prepped and draped in routine sterile fashion. The arm was held in a Trimano arm holding device. At this point, appropriate timeout was taken and agreed upon by all given the patient's unique identifiers. A deltopectoral incision was then made, taken down past the cephalic vein, which was protected throughout the entire case. The deltoid was held lateral using the brown retractor. Conjoined tendon was gently held medially using the PCL retractor. At this time, under fluoroscopic guidance, a reduction maneuver was performed and then the AxSOS 3 appropriate length plate was put into the appropriate position. Initial fixation both proximally and distally was then reevaluated with fluoroscopy and found to be anatomically aligned. Serial and sequential drill and fill were done with a combination of both locking and compression screws. Having completed this, final radiographs were taken and submitted for radiologist review. The wound was then copiously irrigated. A gram of vancomycin and a gram of tobramycin were placed into the wound. It was closed by CLAUDE Pinto with #1 Vicryl, 2-0 Vicryl and skin shamar. Sterile dressings were applied. The patient was awakened and taken to recovery room in stable, but guarded condition as she also has rib fractures on the contralateral side. TRANSINT:[id number] Voice Confirmation ID: [id number] DOCUMENT ID: [id number] OPERATIVE REPORT [id number] BRITNEY MCNEAL MD, MYA AHUJA at 1207 CC: [id number] DICTATION DATE: 09/10/19 1522 SAMPLE GRINDER: 09/10/19 1807 ADM IN [place] [address] [place] [address]
[2019-09-11 12:14] VITALS: BP 126/67
[2019-09-11 16:20] VITALS: BP 107/57
--- NOTE | 2019-09-11 16:30 | NUR ---
PUREWICK LEAKED. PATIENT STOOD AT SIDE OF BED WHILE STAFF CHANGED LINENS AND PROVIDED SKIN CARE. DENIES NEEDS.
--- NOTE | 2019-09-11 18:50 | NUR ---
ATE MOST OF SUPPER. DENIES NEEDS. FAMILY AT BEDSIDE.
--- NOTE | 2019-09-11 19:50 | NUR ---
ASSISTED PATIENT TO AND FROM BSC. REPOSITIONED PATIENT IN BED. AT BEDSIDE. NO S/S OF DISTRESS. BED IN LOWEST POSITION AND CALL LIGHT WITHIN REACH. ENCOURAGED THE PATIENT TO CALL IF SHE HAS NEEDS. WILL CONTINUE TO MONITOR.
[2019-09-11 20:00] VITALS: BP 86/55
[2019-09-12] VITALS: BP 98/66
[2019-09-12 04:00] VITALS: BP 97/60
[2019-09-12 06:19] LABS: BASOPHILS 0.3 % (0-2); EOSINOPHILS 3.4 % (0-7); HEMATOCRIT 26.8 % (36.0-48.0); HEMOGLOBIN 8.4 g/dL (12-16); IMMATURE GRANULOCYTES 0.6 % (0-5); LYMPHOCYTES 17.6 % (15-50); MCH 30.8 pg (26.0-34.0); MCHC 31.3 g/dL (31.0-37.0); MCV 98.2 fL (80.0-100.0); MEAN PLATELET VOLUME 9.1 fL (7.4-10.4); MONOCYTES 13.8 % (2-11); NEUTROPHILS 64.3 % (40-80); PLATELET COUNT 145 10x3/uL (130-400); RBC 2.73 10x6/uL (4.00-5.40); RDW 13.5 % (11.5-14.5)
[2019-09-12 06:34] LABS: WBC 3.2 10x3/uL (4.8-10.8)
[2019-09-12 06:36] LABS: ALBUMIN 1.7 g/dL (3.4-5.0); ALKALINE PHOSPHATASE 297 U/L (30-120); BILIRUBIN - TOTAL 0.19 mg/dL (0.2-1.3); CALC OSMOLALITY 267 mosm/kg (275-300); CALCIUM 7.1 mg/dL (8.5-10.1); CARBON DIOXIDE 25.7 mmol/L (21.0-32.0); CHLORIDE - SERUM 103 mmol/L (98-107); CREATININE - SERUM 0.8 mg/dL (0.6-1.3); GLUCOSE 87 mg/dL (74-106); POTASSIUM - SERUM 3.7 mmol/L (3.5-5.1); PROTEIN - SERUM 4.1 g/dL (6.4-8.2); SODIUM 134 mmol/L (136-145); UREA NITROGEN 15 mg/dL (7-18); eGFR NON AFRICAN AMERICAN 76 mL/min (90-120)
[2019-09-12 06:41] LABS: ALT (SGPT) 29 U/L (10-68)
--- NOTE | 2019-09-12 07:10 | NUR ---
REC'D IN BED AWAKE AND ALERT. RESP EVEN AND UNALBORED WITH NO DISTRESS NOTED. CAN EXPRESS NEEDS AND WANTS. NO C/O NOTED OR VOICED. ASSESSMENT COMPLETED. C/L IN REACH AT BEDSIDE.
[2019-09-12 08:43] VITALS: BP 93/57
--- NOTE | 2019-09-12 12:07 | NUR ---
C/O PAIN RATING 6/10 ON PAIN SCALE WAS MEDICATED WITH NORCO PER ORDERS. C/L IN REACH AT BEDSIDE.
--- NOTE | 2019-09-12 12:34 | NUR ---
OT NOTE: PT TOLERATED SITTING UP IN CHAIR APPROX 1 HR. PT REQUESTING TO LIE BACK DOWN; MIN ASSIST WITH USE OF GAIT BELT FOR SIT TO STAND AND TRANSFERS; MIN ASSIST FOR SIT TO SUPINE; MOD ASSIST TO REPOSITION. CHARU MIMS, OTR/L [id number]
[2019-09-12 12:49] VITALS: BP 133/61
--- NOTE | 2019-09-12 15:01 | NUR ---
I have reviewed this patient and I concur with the Shift Assessment completed by the Licensed Practical Nurse today this shift.
--- NOTE | 2019-09-12 16:53 | NUR ---
Rehab Note- Acute Inpatient Rehab prescreen order received. THe patient has [facility] insurance and will require a PreAuth. Will begin PreAuth process. Thank you for this referral! Erwin Escobedo RN Clincical Liaison, [facility] Rehab
--- NOTE | 2019-09-12 17:08 | MORECARE ---
CASE MANAGEMENT DISCHARGE SUMMARY PATIENT: BRITNEY MCNEAL UNIT: [id number] ADM DATE: 09/09/19 AGE: 63 : 53 SEX: F ROOM/BED: D.2234 AUTHOR: MARCIA SAUCEDA PHYSICIAN: REFERRING PHYSICIAN: MAGDALENA MCNEIL MD DATE OF SERVICE: 09/12/19 Discharge Plan Patient Name: BRITNEY MCNEAL [facility] [facility] 1955 Planned Disposition: Inpatient Rehab Anticipated Discharge Date: Discharge Date: Expected LOS: Initial Reviewer: [email or web address] Initial Review Date: 09/12/2019 Generated: 09/12/19 6:08 pm DCPIA - Discharge Planning Initial Assessment Updated by [id number]: Lisseth Jerez on 09/12/19 5:06 pm * Is the patient Alert and Oriented? Yes * PCP [facility] * [facility] * Preadmission Environment Home with Family * ADLs Independent * Other Equipment [facility] [place] * Community resources currently utilized Home Health * Please name any agencies selected above. CANT REMEMBER THE NAME * Additional services required to return to the preadmission environment? Yes * Can the patient safely return to the preadmission environment? No * Has this patient been hospitalized within the prior 30 days at any hospital? No Patient Name: BRITNEY MCNEAL Page 53527 at 1708 All edits/amendments must be made on the electronic document DICTATION DATE: 09/12/191707 ALLIGATOR TRAPPER: JAYDON 09/12/191707 RPT#: [id number] DC DATE: STATUS: ADM IN [facility] [address] [place] [address] END OF REPORT
--- NOTE | 2019-09-12 17:16 | MORECARE ---
CASE MANAGEMENT DISCHARGE SUMMARY PATIENT: BRITNEY MCNEAL UNIT: [id number] ADM DATE: 09/09/19 AGE: 63 : 53 SEX: F ROOM/BED: D.2234 AUTHOR: MARCIA SAUCEDA PHYSICIAN: REFERRING PHYSICIAN: MAGDALENA MCNEIL MD DATE OF SERVICE: 09/12/19 Discharge Plan Patient Name: BRITNEY MCNEAL [facility]:[place] : 1955 Planned Disposition: Inpatient Rehab Anticipated Discharge Date: Discharge Date: Expected LOS: Initial Reviewer: [id number] Initial Review Date: 09/12/2019 Generated: 09/12/19 6:15 pm Comments DCP- Discharge Planning Updated by [email or web address]: Lisseth Jerez on 09/12/19 4:[address] Patient Name: BRITNEY MCNEAL Admission Status: Elective Accout number: [id number] Admission Date: 09-09-2019 : 1955 Admission Diagnosis: Attending: MAGDALENA MCNEIL Current LOS: 3 Anticipated DC Date: Planned Disposition: Inpatient Rehab Primary Insurance: [facility] MEDICARE SOLUTIONS Discharge Planning Comments: CM met with patient at bedside after explaining CM role and obtaining verbal consent. CM discussed availability / needs of home health, REHAB and medical equipment. PATIENT STATES [facility] WOULD BE BENEFICIAL. RIC SIGNED FOR [facility]. STATES HAS HH AT HOME BUT CAN'T REMEMBER WHICH COMPANY. Industrial Truck Driver: Lisseth Jerez DCPIA - Discharge Planning Initial Assessment Updated by [email or web address]: Lisseth Jerez on 09/12/19 5:06 pm * Is the patient Alert and Oriented? Yes * PCP [facility] * [facility] * Preadmission Environment Home with Family * ADLs Independent * Other Equipment [place] * Community resources currently utilized Home Health * Please name any agencies selected above. CANT REMEMBER THE NAME * Additional services required to return to the preadmission environment? Yes * Can the patient safely return to the preadmission environment? No * Has this patient been hospitalized within the prior 30 days at any hospital? No Last DP export: 09/12/19 4:08 p Patient Name: BRITNEY MCNEAL Page [phone] at 1716 All edits/amendments must be made on the electronic document DICTATION DATE: 09/12/191714 BUSINESS OBJECTS DEVELOPER: JAYDON 09/12/191714 RPT#: [id number] DC DATE: STATUS: ADM IN [facility] [address] [place] [address] END OF REPORT
[2019-09-12 17:25] VITALS: BP 113/68
[2019-09-12 20:00] VITALS: BP 79/49
[2019-09-13] VITALS: BP 98/67
[2019-09-13 04:00] VITALS: BP 98/66
[2019-09-13 05:29] LABS: BASOPHILS 0 % (0-2); HEMATOCRIT 25.7 % (36.0-48.0); IMMATURE GRANULOCYTES 1.1 % (0-5); LYMPHOCYTES 22.1 % (15-50); MCH 30.5 pg (26.0-34.0); MCHC 31.1 g/dL (31.0-37.0); MCV 98.1 fL (80.0-100.0); MEAN PLATELET VOLUME 9.8 fL (7.4-10.4); MONOCYTES 13.6 % (2-11); NEUTROPHILS 59.2 % (40-80); PLATELET COUNT 169 10x3/uL (130-400); RBC 2.62 10x6/uL (4.00-5.40); RDW 13.6 % (11.5-14.5); WBC 2.7 10x3/uL (4.8-10.8)
[2019-09-13 05:36] LABS: ALBUMIN 1.5 g/dL (3.4-5.0); ALKALINE PHOSPHATASE 247 U/L (30-120); BILIRUBIN - TOTAL 0.22 mg/dL (0.2-1.3); CALC OSMOLALITY 270 mosm/kg (275-300); CALCIUM 7.6 mg/dL (8.5-10.1); CARBON DIOXIDE 26.4 mmol/L (21.0-32.0); CHLORIDE - SERUM 104 mmol/L (98-107); CREATININE - SERUM 0.7 mg/dL (0.6-1.3); GLUCOSE 88 mg/dL (74-106); MAGNESIUM - SERUM 1.7 mg/dL (1.8-2.4); PHOSPHOROUS 2.4 mg/dL (2.5-4.9); POTASSIUM - SERUM 3.6 mmol/L (3.5-5.1); PROTEIN - SERUM 4.5 g/dL (6.4-8.2); SODIUM 136 mmol/L (136-145); UREA NITROGEN 12 mg/dL (7-18); eGFR NON AFRICAN AMERICAN 89 mL/min (90-120)
[2019-09-13 05:37] LABS: ALT (SGPT) 20 U/L (10-68)
--- NOTE | 2019-09-13 08:00 | NUR ---
ASSESSMENT PER FLOW SHEET. PATIENT IS WITHOUT DISTRESS.FALL PREVENTION IN PLACE WITH VAIBHAV. MONITOR FOR NEEDS
[2019-09-13 09:30] VITALS: BP 110/70
--- NOTE | 2019-09-13 12:26 | NUR ---
REMAINS WITHOUT DISTRESS. FAMILY IN ROOM
--- NOTE | 2019-09-13 14:48 | NUR ---
OT NOTE: PT SEEN IN PM.. PT INITIALLY VERY ALERT WITH INCREASED VERBALIZATION. ASSISTED PT TO EOB WITH MIN ASSIST. SIT TO STAND WITH MIN ASSIST. PT REPORTED THAT SHE NEEDED TO GO TO BATHROOM, HOWEVER, BEFORE SHE WAS ABLE TO GET TO COMMODE, SHE HAD AN EPISODE OF DIARRHEA. REQUIRED MAX ASSIST FOR TOILET HYGIENE; CHANGING SOCKS, CHANGING GOWN, AND BATHING LES.. PT AMB WITH MIN/MOD ASSIST AND USE OF IV POLE X APPROX 15 FT.. BACK TO BED WITH MOD ASSIST; BED MOB INCLUDING ROLLING SIDE TO SIDE WITH MIN ASSIST AND SCOOTING UP IN BED WITH MOD ASSIST. CHARU MIMS, OTR/L [phone]
--- NOTE | 2019-09-13 15:03 | EC ---
PATIENT:BRITNEY MCNEAL DATE OF SERVICE: 09/09/19 SEX: F MEDICAL RECORD: [id number] DATE OF : [birth year] LOCATION:D.[facility] AGE OF PATIENT: 63 ADMISSION DATE: 09/09/19 REFERRING PHYSICIAN: INTERPRETING PHYSICIAN: RYLAND DILL MD ECHOCARDIOGRAM REPORT ECHO CHARGES 4 ECHO COMPLETE Date: 09/10/19 CLINICAL DIAGNOSIS: CHF HX MV REPAIR ECHOCARDIOGRAPHIC MEASUREMENTS (adult normal given) AC root (d.<3.7cm) 2.7 cm LV Septum d (<1.2 cm> 0.80 cm Valve Excursion 1.4 cm LV Septum (systole) 1.2 cm Left Atria (s.<4.0cm> 4.1 cm LVPW d(<1.2cm) 1.3 cm RV (d.<2.3cm) 2.9 cm LVPW (sytole) 1.5 cm LV diastole(<5.6CM) 4.2 cm MV E-F(>70mm/sec) cm LV systole 2.2 cm LVOT Diameter 1.4 cm MV exc.(>10mm) 1.3 cm Est.ejection fraction (50-75%) % DOPPLER: LVIT cm/sec A 76.0 cm/sec E 127.0 cm/sec LA cm/sec RVSP 24 mmHg LVOT 109 cm/sec AOP1/2T m/s Asc. Ao 163 cm/sec RVOT cm/sec RA cm/sec PA cm/sec AV Gradient Peak 10.61mmHg AV Mean 5.65 mmHg AV Area 1.2 cm MV Gradient Peak 12.78mmHg MV Mean 4.41 mmHg MV Area cm COMMENTS: Shipping Clerk/Admin: 2 DL [employer] Sales Representative Raw Fibers: 3 Dr. Barton TAPE# PACS Pericardial Effusion N DATE OF SERVICE: Adequate 2D, color flow imaging, spectral Doppler, and M-Mode. No LVH. LV internal dimensions are normal. Wall motion is normal. EF is greater than or equal to 55%. Aortic valve is tricuspid. No evidence of stenosis by Doppler interrogation. Left atrium is minimally dilated at 4.1 cm. Mitral valve, status post repair with good excursion. No evidence of stenosis by Doppler interrogation and only mild MR. Right-sided chambers are grossly normal. Mild TR. ECHOCARDIOGRAM REPORT [id number] BRITNEY MCNEAL TRANSINT:[id number] Voice Confirmation ID: [id number] DOCUMENT ID: [id number] RYLAND DILL MD at 1503 CC: [id number] DICTATION DATE: 09/11/19 1011 FORESTRY SCIENTIST: 09/11/19 1355 ADM IN [facility] [address] [place] [address]
--- NOTE | 2019-09-13 16:25 | NUR ---
Rehab Note- Received call from Beth with [facility] that stated their medical associate had approved the patient an acute inpatient rehab stay for 7 days. Auth #[id number]. left for Lisseth Jerez CM. Thank you for this referral! Loree Escobedo RN Clinical Liaison, [facility] Re[facility]
[2019-09-13 17:51] VITALS: BP 114/58
--- NOTE | 2019-09-13 18:09 | NUR ---
OT NOTE: P COMPLETED LB HYGIENE WITH MAX A. PT COMPLETED SIDE ROLLING WITH MOD/MAX A. PT COMPLETED RUE AROM TOLERATED. [phone] THANK YOU,ELIZABETH BOLANOS
[2019-09-13 21:55] VITALS: BP 94/59
[2019-09-14] VITALS: BP 93/62
[2019-09-14 04:00] VITALS: BP 106/62
[2019-09-14 07:42] LABS: HEMATOCRIT 27.6 % (36.0-48.0); HEMOGLOBIN 8.5 g/dL (12-16); MCH 29.7 pg (26.0-34.0); MCHC 30.8 g/dL (31.0-37.0); MCV 96.5 fL (80.0-100.0); MEAN PLATELET VOLUME 8.7 fL (7.4-10.4); PLATELET COUNT 174 10x3/uL (130-400); RBC 2.86 10x6/uL (4.00-5.40); RDW 13.5 % (11.5-14.5); WBC 2.9 10x3/uL (4.8-10.8)
--- NOTE | 2019-09-14 07:45 | NUR ---
RESTING IN BED WITH LEFT ARM WITH DRESSING CDI. SLING INPLACE. ON ROOM AIR. IV TO RIGHT FOREARM WITH D5 NS TA 50ML/HR. TELEMETRY IN PLACE 77 SR. CALL LIGHT IN REACH.
[2019-09-14 08:00] LABS: ALBUMIN 1.6 g/dL (3.4-5.0); ALKALINE PHOSPHATASE 235 U/L (30-120); ALT (SGPT) 17 U/L (10-68); BILIRUBIN - TOTAL 0.27 mg/dL (0.2-1.3); CALC OSMOLALITY 269 mosm/kg (275-300); CALCIUM 7.7 mg/dL (8.5-10.1); CARBON DIOXIDE 26.4 mmol/L (21.0-32.0); CHLORIDE - SERUM 103 mmol/L (98-107); CREATININE - SERUM 0.7 mg/dL (0.6-1.3); GLUCOSE 87 mg/dL (74-106); MAGNESIUM - SERUM 1.7 mg/dL (1.8-2.4); PHOSPHOROUS 2.6 mg/dL (2.5-4.9); POTASSIUM - SERUM 3.7 mmol/L (3.5-5.1); PROTEIN - SERUM 4.6 g/dL (6.4-8.2); SODIUM 135 mmol/L (136-145); UREA NITROGEN 14 mg/dL (7-18); eGFR NON AFRICAN AMERICAN 89 mL/min (90-120)
--- NOTE | 2019-09-14 08:27 | NUR ---
RESTING IN BED, NO DISTRESS NOTED, IN ROOM, TELE IN PLACE, SLING AND DRESSING TO LEFT SHOULDER, CONT TO MONITOR PAIN
[2019-09-14 09:05] VITALS: BP 109/52
[2019-09-14] MEDS ORDERED: HYDROCODON-ACE1 EAC7 PO (10:21)
[2019-09-14 11:25] LABS: EOSINOPHILS 1 % (0-7); LYMPHOCYTES 40 % (15-50); MONOCYTES 10 % (2-11); NEUTROPHILS 49 % (40-80); PLATELET ESTIMATE NORMAL
[2019-09-14 12:34] VITALS: BP 111/60
[2019-09-14] MEDS ORDERED: LEVOFLOXACIN500 MG PO (14:29)
[2019-09-14] MEDS ORDERED: LOVENOX40 MG/0.4 SC (14:29)
--- NOTE | 2019-09-14 15:01 | MORECARE ---
CASE MANAGEMENT DISCHARGE SUMMARY PATIENT: BRITNEY MCNEAL UNIT: [id number] ADM DATE: 09/09/19 AGE: 63 : 51 SEX: F ROOM/BED: D.2234 AUTHOR: KOMAL,DOC PHYSICIAN: REFERRING PHYSICIAN: MAGDALENA MCNEIL MD DATE OF SERVICE: 09/14/19 Discharge Plan Patient Name: BRITNEY MCNEAL Facility: [facility]:[place] : 1955 Planned Disposition: Inpatient Rehab Anticipated Discharge Date: Discharge Date: Expected LOS: Initial Reviewer: [id number] Initial Review Date: 09/12/2019 Generated: 09/14/19 4:01 pm Comments DCP- Discharge Planning Updated by [id number]: Lisseth Jerez on 09/14/19 1:[address] Patient Name: BRITNEY MCNEAL Encounter No: [id number] : 1955 Primary Insurance: [facility] MEDICARE SOLUTIONS Anticipated DC Date: Planned Disposition: Inpatient Rehab External Planned Provider: : DCP follow-up note: Patient and family in agreement with discharge plan. DC TO INPATIENT REHAB TODAY. IMM SIGNED AND GIVEN. No changes to plan. Case management will follow and assist as needed. Lisseth Jerez DCP- Discharge Planning Updated by [email or web address]: Lisseth Jerez on 09/12/19 4:[address] Patient Name: BRITNEY MCNEAL Admission Status: Elective Accout number: [id number] Admission Date: 09-09-2019 : 1955 Admission Diagnosis: Attending: MAGDALENA MCNEIL Current LOS: 3 Anticipated DC Date: Planned Disposition: Inpatient Rehab Primary Insurance: [facility] MEDICARE SOLUTIONS Discharge Planning Comments: CM met with patient at bedside after explaining CM role and obtaining verbal consent. CM discussed availability / needs of home health, REHAB and medical equipment. PATIENT STATES [facility] WOULD BE BENEFICIAL. RIC SIGNED FOR [facility]. STATES HAS HH AT HOME BUT CAN'T REMEMBER WHICH COMPANY. Web Specialist: Lisseth Jerez DCPIA - Discharge Planning Initial Assessment Updated by [id number]: Lisseth Jerez on 09/12/19 5:06 pm * Is the patient Alert and Oriented? Yes * PCP BUCKY * [facility] * Preadmission Environment Home with Family * ADLs Independent * Other Equipment [place] * Community resources currently utilized Home Health * Please name any agencies selected above. CANT REMEMBER THE NAME * Additional services required to return to the preadmission environment? Yes * Can the patient safely return to the preadmission environment? No * Has this patient been hospitalized within the prior 30 days at any hospital? No Coverage Notice Reviewer: [id number] Elizabeth Jerez Notice Issued Date-Time: 09/14/2019 14:53 Notice Type: IM Discharge Notice Notice Delivered To: Relationship to Patient: Monomer Recovery Operator Name: Delivery Method: HAND - Hand Delivered Alice Days: Prior Verbal Notification: Recipient Understood Notice: Yes Recipient Signature: Yes Med Rec Note Co-signed by Attending: Coverage Notice Comment: Last DP export: 09/12/19 4:16 p Patient Name: BRITNEY MCNEAL Page [phone] at 1501 All edits/amendments must be made on the electronic document DICTATION DATE: 09/14/19 1501 COMMUNITY CENTER COORDINATOR: JAYDON 09/14/19 1501 RPT#: [id number] DC DATE: STATUS: ADM IN [facility] [address] [place] [address] END OF REPORT
--- NOTE | 2019-09-14 16:38 | NUR ---
OT NOTE: PT COMPLETED SIT TO STAND WITH CGA/MIN A. PT COMPLETED ADL MOB WITH CGA. PT COMPLETED RUE AROM AX. [phone] THANK YOU,ELIZABETH BOLANOS
--- NOTE | 2019-09-15 09:03 | MORECARE ---
CASE MANAGEMENT DISCHARGE SUMMARY PATIENT: BRITNEY MCNEAL UNIT: [id number] ADM DATE: 09/09/19 AGE: 63 : 53 SEX: F ROOM/BED: D.2234 AUTHOR: KOMALDOC PHYSICIAN: REFERRING PHYSICIAN: MAGDALENA MCNEIL MD DATE OF SERVICE: 09/15/19 Discharge Plan Patient Name: BRITNEY MCNEAL Facility: [facility]:[place] : 1955 Planned Disposition: Inpatient Rehab Anticipated Discharge Date: Discharge Date: 09/14/2019 Expected LOS: Initial Reviewer: [id number] Initial Review Date: 09/12/2019 Generated: 09/15/19 10:03 am Comments DCP- Discharge Planning Updated by [email or web address]: Lisseth Jerez on 09/14/19 1:[address] Patient Name: BRITNEY MCNEAL Encounter No: [id number] : 1955 Primary Insurance: [facility] MEDICARE SOLUTIONS Anticipated DC Date: Planned Disposition: Inpatient Rehab External Planned Provider: : DCP follow-up note: Patient and family in agreement with discharge plan. DC TO INPATIENT REHAB TODAY. IMM SIGNED AND GIVEN. No changes to plan. Case management will follow and assist as needed. Lisseth Jerez DCP- Discharge Planning Updated by [email or web address]: Lisseth Jerez on 09/12/19 4:[address] Patient Name: BRITNEY MCNEAL Admission Status: Elective Accout number: [id number] Admission Date: 09-09-2019 : 1955 Admission Diagnosis: Attending: MAGDALENA MCNEIL Current LOS: 3 Anticipated DC Date: Planned Disposition: Inpatient Rehab Primary Insurance: [employer] MEDICARE SOLUTIONS Discharge Planning Comments: CM met with patient at bedside after explaining CM role and obtaining verbal consent. CM discussed availability / needs of home health, REHAB and medical equipment. PATIENT STATES [facility] WOULD BE BENEFICIAL. RIC SIGNED FOR [facility]. STATES HAS HH AT HOME BUT CAN'T REMEMBER WHICH COMPANY. Pit Hand: Lisseth Jerez DCPIA - Discharge Planning Initial Assessment Updated by [email or web address]: Lisseth Jerez on 09/12/19 5:06 pm * Is the patient Alert and Oriented? Yes * PCP [facility]CKY * [facility] * Preadmission Environment Home with Family * ADLs Independent * Other Equipment [place] * Community resources currently utilized Home Health * Please name any agencies selected above. CANT REMEMBER THE NAME * Additional services required to return to the preadmission environment? Yes * Can the patient safely return to the preadmission environment? No * Has this patient been hospitalized within the prior 30 days at any hospital? No Coverage Notice Reviewer: [id number] Elizabeth Jerez Notice Issued Date-Time: 09/14/2019 14:53 Notice Type: IM Discharge Notice Notice Delivered To: Relationship to Patient: Environmental Science Instructor Name: Delivery Method: HAND - Hand Delivered Alice Days: Prior Verbal Notification: Recipient Understood Notice: Yes Recipient Signature: Yes Med Rec Note Co-signed by Attending: Coverage Notice Comment: Last DP export: 09/14/19 2:01 p Patient Name: BRITNEY MCNEAL Page [phone] at 0903 All edits/amendments must be made on the electronic document DICTATION DATE: 09/15/19902 INTERNET SALES CONSULTANT: JAYDON 09/15/19902 RPT#: [id number] DC DATE:09/14/19 STATUS: DIS IN [facility] [address] [place] [address] END OF REPORT
== END 2019-09-14 18:08 | DRG 958 ==
LOC: D.ER 11:07 → D.MS 13:13
PROVIDERS: Emergency Medicine; Family Medicine; Internal Medicine Pulmonary Disease; Orthopaedic Surgery; ADMIT Family Medicine; ATTEND Family Medicine
PROC: 0PSG04Z Reposition Left Humeral Shaft with Internal Fixation Device, Open Approach (ICD-10-PCS; principal; 2019-09-10 06:55)
DX: S42.212A Unspecified displaced fracture of surgical neck of left humerus, initial encounter for closed fracture (principal); S32.512A Fracture of superior rim of left pubis, initial encounter for closed fracture; S27.329A Contusion of lung, unspecified, initial encounter; S22.43XA Multiple fractures of ribs, bilateral, initial encounter for closed fracture; N39.0 Urinary tract infection, site not specified; J98.11 Atelectasis; I50.30 Unspecified diastolic (congestive) heart failure; D62 Acute posthemorrhagic anemia; F05 Delirium due to known physiological condition; Z96.612 Presence of left artificial shoulder joint; K21.9 Gastro-esophageal reflux disease without esophagitis; G40.909 Epilepsy, unspecified, not intractable, without status epilepticus; E78.5 Hyperlipidemia, unspecified; I25.10 Atherosclerotic heart disease of native coronary artery without angina pectoris; F03.90 Unspecified dementia, unspecified severity, without behavioral disturbance, psychotic disturbance, mood disturbance, and anxiety; I11.0 Hypertensive heart disease with heart failure; Z86.73 Personal history of transient ischemic attack (TIA), and cerebral infarction without residual deficits

== ENCOUNTER 2019-09-14 16:32 | Inpatient (IN) | payer MEDICARE, MEDICAID ==
[~2019-09-14] VITALS: Ht 162.6 cm; Wt 60.8 kg
[~2019-09-14 16:32] MED LIST changes: +HYDROCODON-ACE1 EAC7 PO; +LEVOFLOXACIN500 MG PO; +LOVENOX40 MG/0.4 SC
--- NOTE | 2019-09-14 17:00 | NUR ---
RECIEVED PER WC TO ROOM.1118B.ORIENTED TO ROOM AND SURROUNDINGS.CL IN REACH.
[2019-09-14 17:39] VITALS: BP 105/71; BMI 23.0
--- NOTE | 2019-09-14 20:04 | NUR ---
AWAKE AND ALERT. RESTING IN WHEELCHAIR. MOVED TO ROOM 1112A PER REQUEST TO BE ROOMMATE WITH SISTER. SANDWICH TRAY PRVIDED. SLING IN PLACE TO RIGHT ARM. NO ACUTE DISTRESS NOTED.
[2019-09-14 21:16] VITALS: BP 94/52
--- NOTE | 2019-09-15 00:33 | NUR ---
RESTING IN BED WITH RESPIRATIONS UNLABORED. NO DISTRESS NOTED.
--- NOTE | 2019-09-15 03:08 | NUR ---
INCONTINENT OF URINE. INCONTINENT CARE GIVEN. NO DISTRESS NOTED.
--- NOTE | 2019-09-15 05:02 | NUR ---
QUIET HOURS. NO ACUTE CHANGES IN CONDITION THIS SHIFT. RESTING IN BED WITH NO DISTRESS NOTED.
[2019-09-15 06:36] LABS: CALC OSMOLALITY 267 mosm/kg (275-300); CALCIUM 7.5 mg/dL (8.5-10.1); CARBON DIOXIDE 26.5 mmol/L (21.0-32.0); CHLORIDE - SERUM 103 mmol/L (98-107); CREATININE - SERUM 0.6 mg/dL (0.6-1.3); GLUCOSE 78 mg/dL (74-106); POTASSIUM - SERUM 4.2 mmol/L (3.5-5.1); SODIUM 134 mmol/L (136-145); UREA NITROGEN 16 mg/dL (7-18); eGFR NON AFRICAN AMERICAN > 90 mL/min (90-120)
[2019-09-15 08:00] VITALS: BP 100/61
--- NOTE | 2019-09-15 08:00 | NUR ---
MOVED INTO ROOM 1109 TODAY.BREAKFAST GIVEN.CL IN REACH.
[2019-09-15 09:08] LABS: BASOPHILS 0.3 % (0-2); EOSINOPHILS 4.1 % (0-7); HEMATOCRIT 28.7 % (36.0-48.0); HEMOGLOBIN 8.9 g/dL (12-16); IMMATURE GRANULOCYTES 0.3 % (0-5); LYMPHOCYTES 26.9 % (15-50); MCV 96.6 fL (80.0-100.0); MEAN PLATELET VOLUME 8.5 fL (7.4-10.4); MONOCYTES 13.8 % (2-11); NEUTROPHILS 54.6 % (40-80); PLATELET COUNT 167 10x3/uL (130-400); RBC 2.97 10x6/uL (4.00-5.40); RDW 13.5 % (11.5-14.5); WBC 2.9 10x3/uL (4.8-10.8)
--- NOTE | 2019-09-15 12:00 | NUR ---
EATING LUNCH.CL IN REACH.
[2019-09-15 14:29] VITALS: Ht 162.6 cm; Wt 60.8 kg
--- NOTE | 2019-09-15 16:00 | NUR ---
WILL CONTINUE TO MONITOR.
--- NOTE | 2019-09-15 19:20 | NUR ---
PT A/OX4, VOICES NEDS, LUNGS CLEAR, SLING TO LEFT ARM, DRESSING CDI TO LEFT SHOULDER INCISION, AMBULATES TO BATHROOM WITH ASSIST FROM STAFF, PRESENT IN ROOM
[2019-09-15 19:30] VITALS: BP 90/55
[2019-09-16 08:00] VITALS: BP 108/74
[2019-09-16 08:26] LABS: CALC OSMOLALITY 268 mosm/kg (275-300); CALCIUM 7.7 mg/dL (8.5-10.1); CHLORIDE - SERUM 103 mmol/L (98-107); GLUCOSE 82 mg/dL (74-106); POTASSIUM - SERUM 3.8 mmol/L (3.5-5.1); SODIUM 134 mmol/L (136-145); UREA NITROGEN 19 mg/dL (7-18); eGFR NON AFRICAN AMERICAN 76 mL/min (90-120)
[2019-09-16 08:27] LABS: CREATININE - SERUM 0.8 mg/dL (0.6-1.3)
[2019-09-16 08:31] LABS: HEMATOCRIT 27.4 % (36.0-48.0); HEMOGLOBIN 8.4 g/dL (12-16); MCHC 30.7 g/dL (31.0-37.0); MCV 97.9 fL (80.0-100.0); MEAN PLATELET VOLUME 9.6 fL (7.4-10.4); RDW 13.2 % (11.5-14.5); WBC 2.5 10x3/uL (4.8-10.8)
[2019-09-16 08:36] LABS: PLATELET COUNT 131 10x3/uL (130-400)
[2019-09-16 10:11] LABS: BASOPHILS 1 % (0-2); EOSINOPHILS 2 % (0-7); LYMPHOCYTES 31 % (15-50); MONOCYTES 12 % (2-11); NEUTROPHILS 54 % (40-80)
[2019-09-16 10:12] LABS: HYPOCHROMASIA OCC; PLATELET ESTIMATE NORMAL
--- NOTE | 2019-09-16 11:36 | NUR ---
CLINICAL UPDATES FAXED TO [facility] , AUTH. #[id number], WILL CONTINUE TO FOLLOW WITH PATIENT.
--- NOTE | 2019-09-16 12:32 | NUR ---
WHEELED HERSELF DOWN TO THERAPY GYM TO USE HER CELL PHONE.
--- NOTE | 2019-09-16 12:34 | NUR ---
SITTING UP IN BED FEEDING HERSELF LUNCH WITH RUE. TRAY AND LIDS HAVE TO BE OPENED BUT SHE CAN DO THE REST. CALL LIGHT IN REACH.
--- NOTE | 2019-09-16 14:15 | NUR ---
AHMET TO JOSE A. REPORT CALLED TO NANCY. FOUNDRY WORKER APPRENTICE PICKED UP PT. PAPERWORK SENT WITH THEM.
--- NOTE | 2019-09-16 19:15 | NUR ---
PT LYING IN BED WITH DAUGHTER IN ROOM. CL IN REACH. DENIES NEEDS AT THIS TIME. BED IN LOW SIDE RAILS X2. RESP EVEN AND UNLABORED. LUNGS CLEAR. BOWEL ACTIVE X4. WILL CONTINUE TO MONITOR.
[2019-09-16 22:05] VITALS: BP 90/51
--- NOTE | 2019-09-17 01:45 | NUR ---
PT FISCAL SPECIALIST LIGHT TO USE BATHROOM BUT DAUGHTER WOKE AND ASSISTED HER TO BATHROOM. DENIES FURTHER NEEDS. CL IN REACH. PT STAND BY ASSIST AND WALKS TO BATHROOM. WILL CONTINUE TO MONITOR.
[2019-09-17 08:00] VITALS: BP 106/69
--- NOTE | 2019-09-17 10:31 | NUR ---
PT TO DAY ROOM THIS AM FOR BREAKFAST WITH PT.
--- NOTE | 2019-09-17 15:08 | NUR ---
PT UP IN HALLWAY WITH PT.
--- NOTE | 2019-09-17 19:20 | NUR ---
PT SITTING UP IN BED WATCHING TV. CL IN REACH. BED IN LOW SIDE RAILS X2. A/O X4. LUNGS CLEAR. BOWEL ACTIVE X4. RESP EVEN AND UNLABORED. DENIES NEEDS AT THIS TIME. WILL CONTINUE TO MONITOR.
[2019-09-17 19:44] VITALS: BP 86/59
--- NOTE | 2019-09-18 05:30 | NUR ---
ASSISTED TO AND FROM BATHROOM. CL IN REACH. DENIES FURTHER NEEDS. WCTM
--- NOTE | 2019-09-18 06:46 | NUR ---
I have reviewed this patient and I concur with the Shift Assessment completed by the Licensed Practical Nurse today this shift.
--- NOTE | 2019-09-18 07:27 | NUR ---
ALERT AND ORIENTED. NO DISTRESS NOTED. RESP EVEN AND UNLABORED. CL IN REACH.
--- NOTE | 2019-09-18 12:56 | NUR ---
NO CHANGE IN ASSESSMENT. RESTING WO DISTRESS. CL IN REACH.
--- NOTE | 2019-09-18 16:30 | NUR ---
NO CHANGE IN ASSESSMENT. NO C/O PAIN AT THIS TIME.
--- NOTE | 2019-09-18 19:15 | NUR ---
PT SITTING UP IN BED WATCHING TV. CL IN REACH. DENIES NEEDS AT THIS TIME. BED IN LOW SIDE RAILS X2. RESP EVEN AND UNLABORED. A/O X4. LUNGS CLEAR. BOWEL ACTIVE X4. LEFT ARM ON PILLOW ELEVATED. WILL CONTINUE TO MONITOR.
[2019-09-18 20:00] VITALS: BP 88/57
--- NOTE | 2019-09-18 22:12 | NUR ---
SHOWER GIVEN. MODERATE ASSIST. PT BACK IN BED. LEFT ARM ELEVATED ON PILLOW. WCTM
--- NOTE | 2019-09-19 00:48 | NUR ---
I have reviewed this patient and I concur with the Shift Assessment completed by the Licensed Practical Nurse today this shift.
--- NOTE | 2019-09-19 02:15 | NUR ---
PT RESITNG QUIETLY. CL IN REACH. NO DISTRESS NOTED. WCTM
--- NOTE | 2019-09-19 07:15 | NUR ---
RESTING WITH EYES CLOSED. NO DISTRESS. CL IN REACH. RESP EVEN AND UNLABORED.
[2019-09-19 07:49] LABS: HEMATOCRIT 26.5 % (36.0-48.0); HEMOGLOBIN 8.2 g/dL (12-16); LYMPHOCYTES 30.7 % (15-50); MCH 30.4 pg (26.0-34.0); MCHC 30.9 g/dL (31.0-37.0); MCV 98.1 fL (80.0-100.0); MEAN PLATELET VOLUME 9.2 fL (7.4-10.4); NEUTROPHILS 60.2 % (40-80); PLATELET COUNT 113 10x3/uL (130-400); WBC 2.7 10x3/uL (4.8-10.8)
[2019-09-19 07:54] LABS: CALC OSMOLALITY 278 mosm/kg (275-300); CALCIUM 7.5 mg/dL (8.5-10.1); CARBON DIOXIDE 22.5 mmol/L (21.0-32.0); CHLORIDE - SERUM 107 mmol/L (98-107); CREATININE - SERUM 0.6 mg/dL (0.6-1.3); GLUCOSE 75 mg/dL (74-106); POTASSIUM - SERUM 3.7 mmol/L (3.5-5.1); SODIUM 139 mmol/L (136-145); UREA NITROGEN 18 mg/dL (7-18); eGFR NON AFRICAN AMERICAN > 90 mL/min (90-120)
[2019-09-19 08:00] VITALS: BP 100/61
--- NOTE | 2019-09-19 09:05 | NUR ---
DR MATUTE NOTIFIED OF PATIENT HAD SEIZURE IN THERAPY. STARRED WITH NO EYE MOVEMENT AND UNABLE TO VERBALIZE. BACK TO BED AND TURNED ON R SIDE, ARMS JERKING. 5 MIN TOTAL TIME. BP 105/60 HR 101. LABS ORDERED.
--- NOTE | 2019-09-19 10:17 | NUR ---
DEPAKOTE LEVEL IS 24.3. KEPPRA LEVEL IS 46. CALLED THESE TO DR MATUTE.
--- NOTE | 2019-09-19 11:36 | NUR ---
PATIENT ADMITTED TO REHAB FROM ACUTE FLOOR. DR. LAWLER IS HER PCP, SHE HAS HOME HEALTH BUT DOESN'T REMEMBER THE NAME. DME AT HOME IS A WALKER AND SHOWER CHAIR. DISCHARGE PLANS ARE FOR HER TO RETURN HOME. SHE HAS AN APPOINTMENT WITH DR. MARSH FOR 09/28/19 @ 1:30. WILL CONTINUE TO FOLLOW WITH PATIENT.
--- NOTE | 2019-09-19 13:20 | NUR ---
Nutrition Follow-up: Diet: Regular + Diet Dr. Valdez on trays PO intake: ~79% average x last 7 meals; She reports that her appetite is "fine" and normal for her. She is willing to try Peter for wound healing. Last BM: 09/18/19. Wt: 134# (09/15/19) Meds and labs reviewed. Skin: stage II PU to buttocks Recommend continue current diet. Will add Peter BID for nutritionally aided wound healing. RD following.
--- NOTE | 2019-09-19 13:49 | NUR ---
DR MATUTE INCREASED DEPAKOTE AFTER LAB LEVELS CHECKED. HAS NOT HAD ANY MORE SEIZURES AFTER THE ONE THIS AM. PARTICIPATED IN THERAPY. BED ALARM ON. INSTRUCTED TO CALL FOR ASSIST AND NOT TO GET UP WO ASSISTANCE.
--- NOTE | 2019-09-19 18:02 | NUR ---
NO CHANGE IN ASSESSMENT. RESP EVEN AND UNLABORED. CL IN REACH.
--- NOTE | 2019-09-19 19:10 | NUR ---
PT ASSISTED TO THE BATHROOM WITH MIN ASSIST. SHE WAS INC. OF A VERY LARGE AMOUNT OF DIARRHEA STOOL. KUSHAL CARE DONE AND CLOTHING CHANGED. PT STATED SHE HAS HAD THIS PROBLEM FOR 12 YEARS AND USUALLY TAKES [address] MATUTE NOTIFIED, AND NEW ORDER FOR PRN IMMODIUM RECIEVED. LEFT SHOULDER SLING IS ON AND INTACT. SR'S ARE UP X 2 IN BED. CALL LIGHT AND BEDSIDE TABLE ARE WITHIN EASY REACH. BED ALARM IS ON.
[2019-09-19 21:53] VITALS: BP 93/56
--- NOTE | 2019-09-19 22:15 | NUR ---
PT IS RESTING QUIETLY IN BED WITH EYES CLOSED. RESPS ARE EVEN AND UNLABORED. NO ACUTE DISTRESS NOTED.
--- NOTE | 2019-09-20 02:33 | NUR ---
I have reviewed this patient and I concur with the Shift Assessment completed by the Licensed Practical Nurse today this shift.
[2019-09-20 08:00] VITALS: BP 93/59
--- NOTE | 2019-09-20 08:00 | NUR ---
SHIFT ASSMT COMPLETED.CL IN REACH.
--- NOTE | 2019-09-20 14:28 | NUR ---
CLINICAL UPDATES FAXED TO [facility] , AUTH. # [id number] WITH CONFORMATION RECIEVED. WILL CONTINUE TO FOLLOW WITH PATIENT.
--- NOTE | 2019-09-20 18:55 | NUR ---
BEDSIDE REPORT COMPLETE. PT LYING IN BED ON RIGHT SIDE EYES CLOSED RESTING. ALERT AND ORIENTED X4. DENIES ANY NEEDS OR PAIN. BLE +3 EDEMA. LUE DRESSING INTACT AND BRUISING NOTED. NO SIGNS OF ACUTE DISTRESS NOTED. CALL LIGHT WITHIN REACH. FALL PRECAUTIONS IN PLACE. CPOC
[2019-09-20 21:16] VITALS: BP 94/61
--- NOTE | 2019-09-21 00:39 | NUR ---
PT LYING IN BED ON RIGHT SIDE EYES CLOSED RESTING QUIETLY. RR EVEN AND UNLABORED. CALL LIGHT WITHIN REACH. FALL PRECAUTIONS IN PLACE. CPOC
--- NOTE | 2019-09-21 02:45 | NUR ---
ASSISTED PT TO RESTROOM WITH SBA. INSTRUCTED TO PULL NURSE CALL WHEN FINISHED. PT VERBALIZED UNDERSTANDING.
--- NOTE | 2019-09-21 03:00 | NUR ---
ASSISTED PT FROM RESTROOM BACK TO BED WITH SBA. DENIES ANY OTHER NEEDS OR PAIN. CALL LIGHT WITHIN REACH. FALL PRECAUTIONS IN PLACE. CPOC
--- NOTE | 2019-09-21 05:33 | NUR ---
PT LYING IN BED AWAKE AND ALERT. DENIES ANY NEEDS OR PAIN. NO SIGNS OF ACUTE DISTRESS NOTED. CALL LIGHT AND WATER WITHIN REACH. FALL PRECAUTIONS IN PLACE. CPOC
[2019-09-21 08:00] VITALS: BP 92/59
--- NOTE | 2019-09-21 08:00 | NUR ---
shift assmt completed.
[2019-09-21 09:36] LABS: ANION GAP 12.3 mmol/L (8-16); CALCIUM 8.2 mg/dL (8.5-10.1); CARBON DIOXIDE 24.6 mmol/L (21.0-32.0); CREATININE - SERUM 0.9 mg/dL (0.6-1.3); POTASSIUM - SERUM 3.9 mmol/L (3.5-5.1)
[2019-09-21 09:46] LABS: BASOPHILS 0.6 % (0-2); EOSINOPHILS 1.8 % (0-7); HEMATOCRIT 32.8 % (36.0-48.0); HEMOGLOBIN 9.9 g/dL (12-16); IMMATURE GRANULOCYTES 0.3 % (0-5); LYMPHOCYTES 34.8 % (15-50); MCH 29.8 pg (26.0-34.0); MCHC 30.2 g/dL (31.0-37.0); MCV 98.8 fL (80.0-100.0); MEAN PLATELET VOLUME 8.8 fL (7.4-10.4); NEUTROPHILS 55.5 % (40-80); PLATELET COUNT 209 10x3/uL (130-400); RBC 3.32 10x6/uL (4.00-5.40); RDW 13.8 % (11.5-14.5); WBC 3.3 10x3/uL (4.8-10.8)
--- NOTE | 2019-09-21 15:58 | NUR ---
PT HAS A STAGE 2 PRESSURE INJURY ON LEFT INNER BUTTOCK. IT MEASURES 2CM X 3CM. CALMOSEPTINE CREAM IS BEING APPLIED AND WOUND IS SHOWING IMPROVEMENT. RECOMMEND CONTINUING WITH CALMOSEPTINE. WOUND CARE WILL MONITOR.
--- NOTE | 2019-09-21 16:17 | NUR ---
CARE TEAM MEETING: PATIENT DOING WELL IN THERAPY . TENATIVE DSICHARGE DATE IS 09/22/19. WILL CONTINUE TO FOLLOW WITH PATIENT.
--- NOTE | 2019-09-21 19:00 | NUR ---
BEDSIDE REPORT COMPLETE. PT LYING IN BED AWAKE. ALERT AND ORIENTED X4. DENIES ANY NEEDS OR PAIN. LEFT SHOULDER INCISION WITH NABIL INTACT OPEN TO AIR. BRUISING NOTED TO LUE. CALL LIGHT WITHIN REACH. FALL PRECAUTIONS IN PLACE. CPOC
[2019-09-21 20:59] VITALS: BP 87/53
--- NOTE | 2019-09-21 23:33 | NUR ---
PT LYING IN BED ON RIGHT SIDE EYES CLOSED RESTING QUIETLY. RR EVEN AND UNLABORED. CALL LIGHT WITHIN REACH. FALL PRECAUTIONS IN PLACE. CPOC
--- NOTE | 2019-09-22 02:16 | NUR ---
PT LYING IN BED ON RIGHT SIDE EYES CLOSED RESTING QUIETLY. RR EVEN AND UNLABORED. CALL LIGHT WITHIN REACH. FALL PRECAUTIONS IN PLACE. CPOC
--- NOTE | 2019-09-22 05:30 | NUR ---
PT LYING IN BED AWAKE. DENIES ANY NEEDS OR PAIN. RR EVEN AND UNLABORED. CALL LIGHT WITHIN REACH. FALL PRECAUTIONS IN PLACE. CPOC
[2019-09-22] MEDS ORDERED: HYDROCODON-ACE1 EAC7 PO (07:12)
--- NOTE | 2019-09-22 07:44 | NUR ---
REVIEWED DISCHARGE INSTRUCTIONS WITH PATIENT. NO CONCERNS VOICED BY PATIENT. PT SIGNED D/C INSTRUCTIONS AND GIVEN COPY OF INSTRUCTIONS AND HARD SCRIPT FOR NORCO 5/325MG. PT IS READY FOR D/C SOON FAMILY ARRIVES
[2019-09-22 08:00] VITALS: BP 93/60
--- NOTE | 2019-09-22 09:45 | NUR ---
REVIEWED DC INSTRUCTIONS WITH PT AND SPOUSE . PT MEDS CALLED TO [facility] [address] AND RX GIVEN TO PT FOR PAIN MEDS. PT ESCORTED OUT VIA WC BY STAFF WITH SPOUSE TO PRIVATE CAR WITH ALL PERSONAL BELONGINGS
--- NOTE | 2019-09-22 09:47 | NUR ---
PATIENT DISCHARGING HOME WITH FAMILY TODAY. [facility] WILL RESUME THERAPY AT HOME. NO NEW DME NEEDED AT THIS TIME. DR. LAWLER 09/23/19 @ 11:45, DR. MARSH 09/28/19 @ 1:30. RIC SIGNED, IMM SERVED AND EXPLAINED ONE GIVEN TO PATIENT AND ONE FILED IN CHART. NO COMPARE DATA REVIEWED PATIENT IS A CLIENT OF [facility] AND WISHES TO STAY WITH THEM. DISCHARGE INSTRUCTIONS FAXED TO PCP, HOME HEALTH, TO [facility] ATTENT: ESEQUIEL LEDESMA AUTH. # [id number] WITH CONFORMATION RECIEVED AND REVIEWED WITH PATIENT PER PRIMARY NURSE.
--- NOTE | 2019-09-23 12:25 | RHP ---
PATIENT: BRITNEY MCNEAL MEDICAL RECORD: [id number] ACCOUNT: [id number] [id number] ADMISSION DATE: 09/14/19 REHABILITATION HISTORY AND PHYSICAL EXAMINATION POST ADMISSION PHYSICIAN EXAMINATION ADMITTING DIAGNOSIS: Major multiple fractures. HISTORY OF PRESENT ILLNESS: The patient is a 63-year-old female patient who presented to the Emergency Room after being brought in by her daughter. The patient reports that the patient had been having increasing confusion and fallen twice the day of admission. She was noted to have 4 anterior rib fractures. She had a pubic ramus fracture, bilateral sacral ala fractures and acute comminuted fracture of the left humeral head with impaction and varus angulation after a fall. The last fall occurred a little bit longer than an hour prior to presenting. Daughter states that she found her near the refrigerator with the left arm being awkwardly underneath her. The patient reports pain to her C-spine. She had pain to palpation in multiple areas. Daughter states that the patient does have some baseline confusion, but has been basically at baseline for the last 3-4 months. She was slightly confused at times in the Emergency Room with answering questions, but was mostly appropriate. X-rays showed fractures of her anterior right ribs involving the 4th through 7th rib. She had an upper lobe infiltrate and bibasilar atelectasis. X-ray showed a superior pubic ramus fracture. CT of the pelvis showed bilateral sacral ala fractures. Urine was positive for UTI. She got extensive history of coronary artery disease, CHF, CVA, brain tumor, craniotomy, seizures. She has had valve replacement, hypertension and falls. She was admitted with ortho consult; cardiology and pulmonary were also consulted. On 09/10/2019, she went to the OR for an open reduction internal fixation of her proximal humeral fracture. Postop, she is nonweightbearing with left upper extremity with a sling to her left arm. She is at her baseline for mentation. She is on IV antibiotics for her pneumonia. She has had prolonged immobility, progressive generalized weakness, especially in her lower extremities affecting her tolerance to PT. She is currently very fatigued, deconditioned. She has proximal muscle strength that is decreased. She is mod to max assist for ADLs and mobility and mod to max assist for her sit to stand and bed to chair. Previously, she was living at home with her and son. She was independent with a walker for ADLs, but recently with frequent falls she is definitely debilitated and will need time here in the rehab before she returns home. COMORBIDITIES: Includes anemia, coronary artery disease, CHF, closed head injury, hypotension, hypothyroidism, dyslipidemia, multiple fractures, UTI, weakness, COPD, history of tricuspid as well as mitral valve problems. PAST MEDICAL HISTORY: Significant for stroke, CVA, seizures in the past. Got a history of cardiovascular problems, got a history of reflux. She has had arthritis. PAST SURGICAL HISTORY: Includes hysterectomy, gallbladder surgery, appendectomy, removal of brain tumor. She has had gastric bypass and tricuspid valve repair. ALLERGIES: PENICILLIN, CODEINE, SALICYLIC ACID AND BENZOIC ACID. CURRENT MEDICATIONS: Include Floranex 1 cap daily, she is on potassium 20 mEq HISTORY AND PHYSICAL [id number] LONG,BRITNEY TELMA daily, Levaquin 500 mg, aspirin 81 mg daily, Protonix 40 mg daily, Topamax 200 mg t.i.d., Requip 1 mg at bedtime, Keppra 1000 mg t.i.d., Neurontin 100 mg t.i.d., Depakote 500 mg t.i.d., Tegretol 200 mg b.i.d., atorvastatin 40 mg at bedtime, [place] 5/325 one tab every 4 hours p.r.n., Lasix 20 mg daily, and MiraLax 17 grams in 8 ounces of water daily. HABITS: No current alcohol or tobacco use. FAMILY HISTORY: Noncontributory. SOCIAL HISTORY: The patient hopes to return back home and get back to her prior level of functioning. REVIEW OF SYSTEMS: GENERAL: Does complain of weakness and fatigue. HEENT: Denies cold, cough, or congestion. CARDIOVASCULAR: Denies any chest pain. PHYSICAL EXAMINATION: VITAL SIGNS: Stable, afebrile. GENERAL: An elderly female in no acute distress, alert upon exam, although slow mentation. HEENT: Normocephalic. She does have some bruising in areas noted from falls. Her pupils are equal, round and reactive to light. Extraocular muscles are intact. NECK: Otherwise supple. LUNGS: Clear in both mathur. She does have decreased breath sounds in her right upper lung region. CARDIOVASCULAR: Regular rate and rhythm. She does have a holosystolic murmur. ABDOMEN: Soft, benign, and nondistended. Positive bowel sounds times 4. She has pain to palpation around the pelvis. EXTREMITIES: No clubbing, cyanosis or edema. She does have a sling in place in her upper arm. NEUROLOGIC: She is slow to mentate. She has diffuse weakness. LABORATORY DATA: Sodium is 134, potassium 4.2, BUN and creatinine of 16 and 0.6 and blood sugar is noted to be 78. ASSESSMENT: This is a 63-year-old female patient admitted to rehab with a working diagnosis of multiple fractures. The patient has potential to make improvement. We instituted the following multidisciplinary therapies including but not limited to physical, occupational, respiratory, speech, nutritional services, prosthetics and orthotics. Given her complex medical condition and risks for more complications, rehabilitation services cannot be provided at a low level of care such as skilled nurse facility. PLAN: 1. Admit to [facility] for inpatient therapy to include the following disciplines: A. Physical therapy to improve gait, all transfer skills and bed mobility to a modified independent level. B. Occupational therapy to improve activities of daily living. C. Case management to assist with discharge planning and placement options. D. Nutrition to assist with nutritional needs. E. Rehabilitation nursing to assist in monitoring the patient's underlying HISTORY AND PHYSICAL [id number] MARIPOSA MCNEALELA TELMA medical conditions and to assist with any type of bowel or bladder management. 2. The patient's current medication and medical care will be continued. 3. The patient will be placed on standard fall precautions. 4. The patient's estimated length of stay is approximately 7-10 days. 5. We will discuss this patient during care team staff meeting this week. We will continue on meds as appropriate. We will work with speech therapy to improve her mentation and I am going to see again in the a.m. TRANSINT:[id number] Voice Confirmation ID: [id number] DOCUMENT ID: [id number] CAMRON notes whether there has been none or any medical/functional change since admission: - No change since preadmission screen. CAMRON attests patient continues to be appropriate for IRF: - Continues to be appropriate. SAAD MATUTE MD at 1225 CC: [id number] DICTATION DATE: 09/15/19 0857 [address] CAR LOADER: 09/15/19 0944 DIS IN 09/22/19 [facility] [address] [place] [address]
== END 2019-09-22 09:45 | disposition home health service (06) | DRG 559 ==
LOC: D.REHAB 16:32
PROVIDERS: ADMIT Emergency Medicine; ATTEND Emergency Medicine
DX: S22.41XD Multiple fractures of ribs, right side, subsequent encounter for fracture with routine healing (principal); J18.9 Pneumonia, unspecified organism; N39.0 Urinary tract infection, site not specified; I50.20 Unspecified systolic (congestive) heart failure; E87.1 Hypo-osmolality and hyponatremia; S32.599D Other specified fracture of unspecified pubis, subsequent encounter for fracture with routine healing; S32.10XD Unspecified fracture of sacrum, subsequent encounter for fracture with routine healing; S42.35 Comminuted fracture of shaft of humerus; W19.XXXD Unspecified fall, subsequent encounter; D64.9 Anemia, unspecified; I25.10 Atherosclerotic heart disease of native coronary artery without angina pectoris; I95.9 Hypotension, unspecified; E03.9 Hypothyroidism, unspecified; E78.5 Hyperlipidemia, unspecified; R53.1 Weakness; J44.9 Chronic obstructive pulmonary disease, unspecified; Z66 Do not resuscitate; K21.9 Gastro-esophageal reflux disease without esophagitis; R06.00 Dyspnea, unspecified; D72.819 Decreased white blood cell count, unspecified; S16.1XXD Strain of muscle, fascia and tendon at neck level, subsequent encounter; E83.51 Hypocalcemia; E83.42 Hypomagnesemia; M19.90 Unspecified osteoarthritis, unspecified site; M85.80 Other specified disorders of bone density and structure, unspecified site; R53.83 Other fatigue

== ENCOUNTER 2020-08-09 17:08 | Emergency (ER) | payer MEDICARE, MEDICAID ==
[2020-08-09 17:17] VITALS: Ht 162.6 cm
[2020-08-09 21:21] VITALS: BP 111/66
== END 2020-08-09 20:35 | disposition home or self-care (01) ==
LOC: D.ER 17:08
DX: S05.11XA Contusion of eyeball and orbital tissues, right eye, initial encounter (principal); S20.212A Contusion of left front wall of thorax, initial encounter; S40.012A Contusion of left shoulder, initial encounter; Z86.73 Personal history of transient ischemic attack (TIA), and cerebral infarction without residual deficits; K21.9 Gastro-esophageal reflux disease without esophagitis; F03.90 Unspecified dementia, unspecified severity, without behavioral disturbance, psychotic disturbance, mood disturbance, and anxiety; W19.XXXA Unspecified fall, initial encounter; Y93.9 Activity, unspecified; Y92.9 Unspecified place or not applicable